=== PATIENT | male | born 1945 | race Caucasian/White ===

== ENCOUNTER 2018-12-16 07:43 | Observation (INO) | payer MEDICARE, BC ==
[2018-12-16] MEDS ORDERED: Sodium Chloride 0.9% 1000 ML 1,000 ML IV STA (08:03)
[2018-12-16] MEDS ORDERED: Sodium Chloride 0.9% 1000 ML 1,000 ML ONE (08:09)
--- NOTE | 2018-12-16 08:11 | ERPHSYRPT ---
- History of Present Illness Time Seen by Provider: 12/16/18 08:06 Source: patient, EMS Exam Limitations: no limitations Physician History: This is a 73-year-old white male with history of congestive heart failure coronary disease hyperlipidemia high blood pressure myocardial infarction asthma COPD pneumonia diabetes type2. Patient arrives with complaint of shortness of breath not feeling well fever symptoms times several days he states he's had a cough productive of yellow sputum he denies any chest pain he states that he has not been nauseous Patient was given Solu-Medrol 125 mg IV by medics also given DuoNeb treatment and albuterol treatment he states he feels like this is making him feel better but is still short of breath. Past medical history includes congestive heart failure, coronary disease, hyperlipidemia, high blood pressure, myocardial infarction, asthma, COPD, pneumonia, diabetes type 2, GERD, renal disease, anxiety, depression, prostate problems, right below the knee amputation Past surgical history includes CABG, right below the knee amputation Social history positive for tobacco use denies alcohol or illicit drug use Timing/Duration: day(s) (2-3 days) Activities at Onset: none Severity of Dyspnea-Max: moderate Severity of Dyspnea-Current: moderate Possible Cause: occasional episodes Modifying Factors: Improves With: nothing Associated Symptoms: constant, cough, fever, wheezing, productive cough (yellow sputum), No intermittent, No anxiety, No chest pain/discomfort, No edema, No insomnia, No loss of appetite, No lightheadedness, No weakness, No ankle swelling, No chills, No hemoptysis, No calf pain, No dizziness, No heaviness, No heart racing, No lightheadedness, No leg swelling, No muscle spasms feet, No muscle spasms hands, No painful breathing, No sweating, No tightness, No tingling face, No tingling hands International travel in last 2 weeks: No Allergies/Adverse Reactions: diazepam [From Valium] Adverse Reaction (Intermediate, Verified 12/16/18 08:04) Hallucinations Home Medications: Aspirin EC 81 mg [Ecotrin 81 mg] 81 mg PO DAILY 01/13/13 [History] Carvedilol 3.125 mg [Coreg 3.125 MG] 3.125 mg PO BID 01/13/13 [History] Clopidogrel Bisulfate 75 mg [PLAVIX 75 MG Tablet] 75 mg PO DAILY 01/13/13 [History] Ezetimibe 10 mg [Zetia 10 MG] 10 mg PO DAILY 01/13/13 [History] Niacin 500 mg [Niaspan 500 mg] 500 mg PO HS 01/13/13 [History] Tamsulosin HCl 0.4 mg [Flomax 0.4 MG] 0.4 mg PO DAILY 01/13/13 [History] Hydrocodone/APAP 10/325 mg [[place] 10/325 MG Tablet] 1 tab PO Q6HPRN PRN [History] Docusate Sodium [Dulcoease] 100 mg PO DAILY 05/09/16 [History] Furosemide 20 mg [Lasix 20 mg] 20 mg PO DAILY 05/09/16 [History] Finasteride 5 mg [Proscar 5 MG] 5 mg PO DAILY 10/26/16 [History] Gabapentin 400 mg [Neurontin 400 MG] 600 mg PO QID 10/26/16 [History] PANTOPRAZOLE 40 mg Tablet [Protonix 40MG Tablet] 40 mg PO QAM 10/26/16 [ History] Potassium Chloride 8 meq PO DAILY 10/26/16 [History] Prednisone 5 mg [Deltasone 5 mg] 5 mg PO DAILY 10/26/16 [History] Sod.chlorid/Potassium Chloride [Thermotabs Tablet] 1 each PO BID 10/26/16 [ History] Tizanidine HCl 4 mg [Zanaflex 4 MG] 2 mg PO TID 10/08/17 [History] Insulin Lispro [Humalog Kwikpen U-100] 1 unit SQ UD 12/16/18 [History] Hx Tetanus, Diphtheria Vaccination/Date Given: Yes (2012) Hx Influenza Vaccination/Date Given: Yes (2013) Hx Pneumococcal Vaccination/Date Given: Yes (2013) - Review of Systems Constitutional: Fever, Malaise, No Chills, No Fatigue, No Lethargy, No Night Sweats, No Weakness, No Weight Loss Eyes: No Symptoms Ears, Nose, & Throat: No Symptoms Respiratory: Cough, Dyspnea, Wheezing Cardiac: No Chest Pain, No Edema, No Syncope Abdominal/Gastrointestinal: No Abdominal Pain, No Nausea, No Vomiting, No Diarrhea, No Constipation, No Hematemesis, No Hematochezia, No Melena, No Dysphagia, No Appetite Changes Genitourinary Symptoms: No Dysuria Musculoskeletal: No Back Pain, No Neck Pain Skin: No Rash Neurological: No Dizziness, No Focal Weakness, No Sensory Changes Psychological: No Symptoms Endocrine: No Symptoms All Other Systems: Reviewed and Negative - Past Medical History Pertinent Past Medical History: Yes Neurological History: Peripheral Neuropathy ENT History: No Pertinent History Cardiac History: Other Respiratory History: COPD Endocrine Medical History: Diabetes Type II Musculoskeletal History: Osteoarthritis, Other GI Medical History: GERD History: Renal Disease Psycho-Social History: Anxiety, Depression Male Reproductive Disorders: Prostate Problems Other Medical History: HAD INFANTILE PARALYSIS; SMOKES 3 PPD; - Past Surgical History Past Surgical History: Yes Neuro Surgical History: No Pertinent History Cardiac: CABG Respiratory: No Pertinent History Gastrointestinal: No Pertinent History Genitourinary: No Pertinent History Musculoskeletal: Orthopedic Surgery Male Surgical History: No Pertinent History Other Surgical History: amputation below knee R. quad bypass - Social History Smoking Status: Current every day smoker How long have you smoked: 47 Exposure to second hand smoke: Yes Alcohol Use: Socially Drug Use: marijuana Patient Lives Alone: Yes Significant Family History: heart disease - Nursing Vital Signs Nursing Vital Signs: Initial Vital Signs Temperature 98.5 F 12/16/18 07:45 Pulse Rate 101 H 12/16/18 07:45 Respiratory Rate 30 H 12/16/18 07:45 Blood Pressure 123/56 12/16/18 07:45 O2 Sat by Pulse Oximetry 93 L 12/16/18 07:45 Pain Scale Pain Intensity 4 - Physical Exam General Appearance: moderate distress, alert Eye Exam: PERRL/EOMI Ears, Nose, Throat Exam: hearing grossly normal, normal ENT inspection, normal pharynx, No abnormal TM (R), No abnormal TM (L), No sinus pain/drainage, No hearing decreased, No nasal congestion, No pharyngeal erythema, No tonsillar exudate, No tonsillar swelling Neck Exam: normal inspection, supple Respiratory Exam: airway intact, diminished breath sounds, wheezing Cardiovascular/Chest Exam: normal heart sounds, regular rate/rhythm, normal peripheral pulses, No murmur Abdominal/Gastrointestinal Exam: soft, No tenderness, No distention, No mass Extremity Exam: non-tender, normal range of motion, no calf tenderness, no pedal edema, No normal inspection (s/p r bka remote) Peripheral Pulses Exam: dorsalis-pedis (R): 2+, dorsalis-pedis (L): 2+ Neurologic Exam: alert, oriented x 3, cooperative, generator rebuilder II-XII nml as tested, sensation nml, No motor deficits Skin Exam: normal color SpO2 Interpretation: normal (93% ) - Course Nursing assessment & vital signs reviewed: Yes EKG Interpreted by Me: RATE (100 bpm), Sinus Rhythm, Left Shonto Deviation, Other (EKG: Sinus rhythm, 100 beats per minute, left axis deviation,, complete right bundle branch block, no acute ST or T wave changes compared to May 08, 2016) - Radiology Exams Chest X-ray Interpretation: Discussed w/ radiologist (chest x-ray: Impression: 1. New prominence of the interstitial lung markings in both lung bases compared to April 29, 2018. Consider bronchitis versus and early were mild basilar interstitial pneumonitis.) - CT Exams Chest CT Interpretation: Discussed w/radiologist (CT chest: Impression: 1. No evidence of pulmonary embolism, no evidence of thoracic aortic aneurysm or dissection. 2. Tree in bud interstitial pattern within the peripheral right lower lung field can be seen with infectious bronchiolitis from numerous etiologies. Distinct dense consolidation is not seen. 3. Increased markings with in the posterior lung sulci bilaterally left greater than right, likely due to atelectasis/scarring no pleural fluid is seen. 4. Several bilateral 3- 4 mm diameter scattered soft tissue nodules within the lower lung villa. The patient is at low risk for lung malignancy no further workup is recommended if the patient is at high risk (for example cigarette smoking ) for development of lung malignancy, and optional CT of the chest that 12 months would be recommended.) Ordered Tests: Active Orders 24 hr Category Date Time Status Cryptologic Support Specialist STAT Care 12/16/18 08:04 Active EKG-ER Only STAT Care 12/16/18 08:03 Active IV Insertion STAT Care 12/16/18 08:03 Active Oxygen-ED Only Nasal Cannula 2 lpm Care 12/16/18 08:03 Active Pulse Oximetry (ED) STAT Care 12/16/18 08:03 Active CHEST 1 VIEW (PORTABLE) Stat Exams 12/16/18 08:03 Completed CHEST WITH CONTRAST [CT] Stat Exams 12/16/18 09:08 Completed BLOOD CULTURE Stat Lab 12/16/18 08:30 Received CBC W DIFF Stat Lab 12/16/18 08:37 Completed CMP Stat Lab 12/16/18 08:37 Completed CULTURE,SPUTUM Stat Lab 12/16/18 08:03 Uncollected D-DIMER QUANTITATION Stat Lab 12/16/18 08:37 Completed Lactic Acid Stat Lab 12/16/18 08:20 Completed NT PRO BNP Stat Lab 12/16/18 08:37 Completed PROTIME WITH INR Stat Lab 12/16/18 08:37 Completed PTT Stat Lab 12/16/18 08:37 Completed TROPONIN Q3H Lab 12/16/18 08:37 Completed TROPONIN Q3H Lab 12/16/18 11:15 Ordered TROPONIN Q3H Lab 12/16/18 14:15 Ordered TROPONIN Q3H Lab 12/16/18 17:15 Ordered TROPONIN Q3H Lab 12/16/18 20:15 Ordered UA W/RFX UR CULTURE Stat Lab 12/16/18 09:15 Completed VENOUS BLOOD GAS Stat Lab 12/16/18 08:20 Completed Medication Summary Discontinued Medications Generic Name Dose Route Start Last Admin Trade Name Freq PRN Reason Stop Dose Admin Hydrocodone Bitart/Acetaminophen 2 tab 12/16/18 08:34 12/16/18 08:38 [place] 5/325 Mg PO 12/16/18 08:35 2 tab STAT ONE Administration Hydrocodone Bitart/Acetaminophen Confirm 12/16/18 08:37 [place] 5/325 Mg Administered 12/16/18 08:38 Dose 2 tab .ROUTE .STK-MED ONE Albuterol Sulfate 2.5 mg 12/16/18 11:14 Proventil 2.5 Mg/3 Ml Neb IH 12/16/18 11:15 STAT ONE Albuterol Sulfate Confirm 12/16/18 11:19 Proventil 2.5 Mg/3 Ml Neb Administered 12/16/18 11:20 Dose 2.5 mg IH .STK-MED ONE Sodium Chloride 1,000 mls @ 999 mls/hr 12/16/18 08:03 12/16/18 09:50 Sodium Chloride 0.9% 1000 Ml IV 12/16/18 09:03 Infused .Q1H1M STA Infusion Sodium Chloride Confirm 12/16/18 08:09 Sodium Chloride 0.9% 1000 Ml Administered 12/16/18 08:10 Dose 1,000 mls @ ud .ROUTE .STK-MED ONE Ceftriaxone Sodium/Dextrose 1 g in 50 mls @ 100 mls/hr 12/16/18 09:15 09:53 Rocephin 1 Gm-D5w 50 Ml Bag IV 12/16/18 09:44 Infused STAT STA Infusion Ceftriaxone Sodium/Dextrose Confirm 12/16/18 09:20 Rocephin 1 Gm-D5w 50 Ml Bag Administered 12/16/18 09:21 Dose 1 g in 50 mls @ ud IV .STK-MED ONE Lab/Rad Data: Laboratory Result Diagrams 12/16/18 08:37 12/16/18 08:37 Laboratory Results 12/16/18 12/16/18 12/16/18 Range/Units 09:15 08:37 08:37 WBC (4.0-10.5) K/mm3 RBC (4.1-5.6) M/mm3 Hgb (12.5-18.0) gm/dl Hct (42-50) % MCV (78-100) fl MCH (26-32) pg MCHC (32-36) g/dl RDW (11.5-14.0) % Plt Count (150-450) K/mm3 MPV (6-9.5) fl Gran % (36.0-66.0) % Eos # (Auto) (0-0.5) Absolute Lymphs (auto) (1.0-4.6) Absolute Monos (auto) (0.0-1.3) Lymphocytes % (24.0-44.0) % Monocytes % (0.0-12.0) % Eosinophils % (0.00-5.0) % Basophils % (0.0-0.4) % Absolute Granulocytes (1.4-6.9) Basophils # (0-0.4) PT 14.5 H (8.83-12.87) SECONDS INR 1.24 (0.8-3.0) APTT 35.2 (24.1-36.1) SECONDS D-Dimer 1235 H* (215-500) ng/mL pO2/FiO2 Ratio % VBG pH (7.32-7.42) VBG pCO2 at Pat Temp (42-55) mm/Hg VBG pO2 at Pat Temp (25-40) mm/Hg VBG HCO3 (22-28) meq/L VBG O2 Sat (Zain) (95-100) VBG Base Excess (-2.0-2.0) VBG Hemoglobin VBG Carboxyhemoglobin (0.0-6.9) % T HGB POC Potassium (3.5-5.1) Sodium (137-145) mmol/L Potassium (3.5-5.1) mmol/L Chloride (98-107) mmol/L Carbon Dioxide (22-30) mmol/L Anion Gap (5-15) MEQ/L BUN (9-20) mg/dL Creatinine (0.66-1.25) mg/dL Estimated GFR ML/MIN Glucose (74-106) mg/dL Lactic Acid (0.4-2.0) Calcium (8.4-10.2) mg/dL Total Bilirubin (0.2-1.3) mg/dL AST (17-59) U/L ALT (0-50) U/L Alkaline Phosphatase (38-126) U/L Troponin I < 0.012 (0.000-0.034) ng/mL NT-Pro-B Natriuret Pep (0-900) pg/mL Serum Total Protein (6.3-8.2) g/dL Albumin (3.5-5.0) g/dL Urine Color YELLOW (YELLOW) Urine Appearance CLEAR (CLEAR) Urine pH 6.0 (5-6) Ur Specific Welcome 1.019 (1.005-1.025) Urine Protein NEGATIVE (Negative) Urine Ketones SMALL (NEGATIVE) Urine Blood SMALL (0-5) Alvin/ul Urine Nitrite NEGATIVE (NEGATIVE) Urine Bilirubin NEGATIVE (NEGATIVE) Urine Urobilinogen 4 (0-1) mg/dL Ur Leukocyte Esterase NEGATIVE (NEGATIVE) Urine WBC (Auto) NONE (0-5) /HPF Urine RBC (Auto) 0-2 (0-2) /HPF U Epithel Cells (Auto) NONE (FEW) /HPF Urine Bacteria (Auto) NONE (NEGATIVE) /HPF Urine Culture Reflexed NO (NO) Urine Glucose 150 (NEGATIVE) mg/dL 12/16/18 12/16/18 12/16/18 Range/Units 08:37 08:37 08:20 WBC 12.1 H (4.0-10.5) K/mm3 RBC 4.67 (4.1-5.6) M/mm3 Hgb 14.8 (12.5-18.0) gm/dl Hct 45.6 (42-50) % MCV 97.6 (78-100) fl MCH 31.7 (26-32) pg MCHC 32.5 (32-36) g/dl RDW 13.8 (11.5-14.0) % Plt Count 190 (150-450) K/mm3 MPV 9.9 H (6-9.5) fl Gran % 73.2 H (36.0-66.0) % Eos # (Auto) 0.04 (0-0.5) Absolute Lymphs (auto) 1.81 (1.0-4.6) Absolute Monos (auto) 1.35 H (0.0-1.3) Lymphocytes % 15.0 L (24.0-44.0) % Monocytes % 11.2 (0.0-12.0) % Eosinophils % 0.3 (0.00-5.0) % Basophils % 0.3 (0.0-0.4) % Absolute Granulocytes 8.84 H (1.4-6.9) Basophils # 0.04 (0-0.4) PT (8.83-12.87) SECONDS INR (0.8-3.0) APTT (24.1-36.1) SECONDS D-Dimer (215-500) ng/mL pO2/FiO2 Ratio 21.0 % VBG pH 7.35 (7.32-7.42) VBG pCO2 at Pat Temp 47 (42-55) mm/Hg VBG pO2 at Pat Temp 21 L (25-40) mm/Hg VBG HCO3 25.9 (22-28) meq/L VBG O2 Sat (Zain) 37.4 L (95-100) VBG Base Excess -0.3 (-2.0-2.0) VBG Hemoglobin 15.2 VBG Carboxyhemoglobin 2.3 (0.0-6.9) % T HGB POC Potassium 4.3 (3.5-5.1) Sodium 136 L (137-145) mmol/L Potassium 4.4 (3.5-5.1) mmol/L Chloride 100 (98-107) mmol/L Carbon Dioxide 26 (22-30) mmol/L Anion Gap 14.7 (5-15) MEQ/L BUN 19 (9-20) mg/dL Creatinine 1.12 (0.66-1.25) mg/dL Estimated GFR > 60.0 ML/MIN Glucose 244 H (74-106) mg/dL Lactic Acid 2.0 (0.4-2.0) Calcium 9.2 (8.4-10.2) mg/dL Total Bilirubin 1.00 (0.2-1.3) mg/dL AST 17 (17-59) U/L ALT 14 (0-50) U/L Alkaline Phosphatase 101 (38-126) U/L Troponin I (0.000-0.034) ng/mL NT-Pro-B Natriuret Pep 342 (0-900) pg/mL Serum Total Protein 8.0 (6.3-8.2) g/dL Albumin 4.0 (3.5-5.0) g/dL Urine Color (YELLOW) Urine Appearance (CLEAR) Urine pH (5-6) Ur Specific Welcome (1.005-1.025) Urine Protein (Negative) Urine Ketones (NEGATIVE) Urine Blood (0-5) Alvin/ul Urine Nitrite (NEGATIVE) Urine Bilirubin (NEGATIVE) Urine Urobilinogen (0-1) mg/dL Ur Leukocyte Esterase (NEGATIVE) Urine WBC (Auto) (0-5) /HPF Urine RBC (Auto) (0-2) /HPF U Epithel Cells (Auto) (FEW) /HPF Urine Bacteria (Auto) (NEGATIVE) /HPF Urine Culture Reflexed (NO) Urine Glucose (NEGATIVE) mg/dL - Progress Progress: improved Air Movement: fair Progress Note: 12/16/18 11:25 Patient is improving still a few wheezes. Pulse oximetry 91-92% on 2 L of oxygen. I discussed the patient's case with Dr. Youngblood will place patient on observation telemetry. Diagnosis COPD with exacerbation and shortness of breath. Will continue Rocephin begin Zithromax. Continue IV Solu-Medrol and duo neb treatments. And will place patient on sliding scale insulin coverage. - Departure Departure Disposition: Observation Clinical Impression: COPD with exacerbation, Shortness of breath Condition: Fair Critical Care Time: No Referrals: JOSHUA YOUNGBLOOD [Primary Care Provider] - Instructions: Chronic Obstructive Pulmonary Disease
[2018-12-16 08:28] LABS: VBG BASE EXCESS -0.3 (-2.0-2.0); VBG CARBOXYHEMOGLOBIN 2.3 % T HGB (0.0-6.9); VBG HCO3- 25.9 meq/L (22-28); VBG HEMOGLOBIN 15.2; VBG O2 SATURATION 37.4 (95-100); VBG PCO2 47 mm/Hg (42-55); VBG PO2 21 mm/Hg (25-40); VBG POTASSIUM 4.3 (3.5-5.1); VBG pH 7.35 (7.32-7.42)
[2018-12-16] MEDS ORDERED: NORCO 5/325 MG PO ONE (08:34)
[2018-12-16] MEDS ORDERED: NORCO 5/325 MG ONE (08:37)
[2018-12-16 08:40] LABS: BASOPHIL % 0.3 % (0.0-0.4); Basophil (Absolute #) 0.04 (0-0.4); Eosinophil % 0.3 % (0.00-5.0); Eosinophil (Absolute #) 0.04 (0-0.5); Granulocyte Absolute (ANC) 8.84 (1.4-6.9); Granulocytes % 73.2 % (36.0-66.0); Hematocrit 45.6 % (42-50); Hemoglobin 14.8 gm/dl (12.5-18.0); Lymphocyte (Absolute #) 1.81 (1.0-4.6); Mean Cell Volume 97.6 fl (78-100); Mean Corpuscular Hemoglobin 31.7 pg (26-32); Mean Corpuscular Hgb Concent. 32.5 g/dl (32-36); Mean Platelet Volume 9.9 fl (6-9.5); Monocyte (Absolute #) 1.35 (0.0-1.3); Monocytes % 11.2 % (0.0-12.0); Platelet Count 190 K/mm3 (150-450); Red Blood Count 4.67 M/mm3 (4.1-5.6); Red Cell Distribution Width 13.8 % (11.5-14.0); White Blood Count 12.1 K/mm3 (4.0-10.5)
[2018-12-16 08:47] LABS: INR 1.24 (0.8-3.0); PROTIME 14.5 SECONDS (8.83-12.87)
--- NOTE | 2018-12-16 08:48 | XRAY ---
Exam: AP upright portable chest film from 12/16/2018. Comparison: Two-view chest film series from 04/29/2018. Indication: 73-year-old male with shortness of breath. Findings: The heart size is normal. Atherosclerotic calcification is seen within the aortic arch. There is evidence of prior CABG with midline sternotomy. The upper 5 sternal wires are broken, but this is unchanged from 04/29/2018. Mild chronic central bronchial wall thickening is seen. I also note mild prominence of the interstitial lung markings at both lung bases. This appears to represent a new finding as compared to 04/29/2018. This could reflect bronchitis, but an early bibasilar interstitial pneumonia is difficult to exclude. The upper and mid lung villa appear clear bilaterally. No central pulmonary vascular congestion or vascular redistribution to the upper lung villa is seen. There is no pneumothorax or pleural effusion. Moderate osteoarthritic changes are seen within both shoulder joints. Impression: 1. There is new prominence of the interstitial lung markings at both lung bases as compared to 04/29/2018. Consider bronchitis versus an early or mild bibasilar interstitial pneumonitis. 2. Other incidental findings, as discussed above.
[2018-12-16 08:50] LABS: PTT 35.2 SECONDS (24.1-36.1)
[2018-12-16 08:59] LABS: ALKALINE PHOSPHATASE 101 U/L (38-126); ANION GAP 14.7 MEQ/L (5-15); BLOOD UREA NITROGEN 19 mg/dL (9-20); CHLORIDE 100 mmol/L (98-107); Calcium 9.2 mg/dL (8.4-10.2); Carbon Dioxide 26 mmol/L (22-30); Creatinine 1 1.12 mg/dL (0.66-1.25); Glucose 244 mg/dL (74-106); NT PRO BNP 342 pg/mL (0-900); Potassium 4.4 mmol/L (3.5-5.1); SGOT/AST 17 U/L (17-59); SGPT/ALT 14 U/L (0-50); SODIUM 136 mmol/L (137-145)
[2018-12-16] MEDS ORDERED: ROCEPHIN 1 Gm-D5w 50 ml Bag** 1 G/50 ML IVPB IV STA (09:15)
[2018-12-16] MEDS ORDERED: ROCEPHIN 1 Gm-D5w 50 ml Bag** 1 G/50 ML IVPB IV ONE (09:20)
[2018-12-16 09:38] LABS: Appearance CLEAR (CLEAR); Bilirubin NEGATIVE (NEGATIVE); Blood SMALL Ery/ul (0-5); Glucose 150 mg/dL (NEGATIVE); Ketones SMALL (NEGATIVE); Leukocyte Esterase NEGATIVE (NEGATIVE); Nitrite NEGATIVE (NEGATIVE); Protein,Urine Dip NEGATIVE (Negative); RBC 0-2 /HPF (0-2); Specific Gravity 1.019 (1.005-1.025); Urobilinogen 4 mg/dL (0-1)
--- NOTE | 2018-12-16 10:44 | XRAY ---
Exam: CTA of the chest with IV contrast per PE protocol from 12/16/2018. CTDI: 17.89 Comparison: AP upright portable chest film from 12/16/2018. Indication: 73-year-old male with elevated d-dimer (1235), back pain, weakness, shortness of breath. Findings: Post-IV contrast axial images were obtained through the chest using the PE protocol during automated injection of 80 cc of Isovue 370 IV contrast material. Reconstructed coronal and sagittal images were created and reviewed. Findings: The enhancing pulmonary arteries reveal no filling defects to suggest clot/emboli. The ascending aorta measures a maximum of 3.8 cm in diameter which is towards the upper limits of normal. However, no thoracic aortic aneurysm or dissection is seen. Vascular calcification is seen within the aortic arch and descending thoracic aorta. The heart size is normal without pericardial effusion. There is evidence of prior CABG with midline sternotomy. I see no abnormal mediastinal or perihilar lymphadenopathy. A few small scattered postinflammatory lymph nodes are seen. I also note some granulomatous calcifications within the AP window on the left on axial image #104. A couple granulomatous calcifications overlie the left hilum as well. The lungs are well expanded. I see no dense focal consolidation, pneumothorax, or pleural fluid. I believe there is a minimal amount of probable phlegm along the posterior right lateral margin of the distal trachea on axial images #20 through #23 of series #3. There appear to be some subtle "tree-in-bud" opacities within the lateral right lower lung field which could reflect infectious bronchiolitis. I also note some increased markings within the posterior lung sulci bilaterally, left greater than right, which may reflect scarring/linear atelectasis. A small calcified granuloma is seen within the posterior lateral left upper lung field on axial image #13 of series #4. Several tiny 3-4 mm nodular densities are seen within the peripheral right lower lung field. There also appears to be a 3.5 mm nodule posterolaterally within the left lower lobe on axial image #42. The visualized upper abdomen reveals some scattered calcified granulomas within both the liver and spleen consistent with remote granulomatous disease. There is a probable small splenule adjacent to the posterior medial aspect of the spleen on axial image #144. The adrenal glands appear unremarkable. The skeleton reveals no fracture or aggressive bone lesion. I again see evidence of prior sternotomy from CABG. Minimal vertebral endplate spurring is seen within the lower thoracic spine. Impression: 1. I see no evidence of pulmonary embolism. Nor do I see evidence of thoracic aortic aneurysm or dissection. 2. There is a "tree-in-bud" interstitial pattern within the peripheral right lower lung field. This can be seen with infectious bronchiolitis from numerous etiologies. A distinct dense consolidation is not seen. 3. I also see some increased markings within the posterior lung sulci bilaterally, left greater than right, likely due to scarring/atelectasis. No pleural fluid is seen. 4. There are several bilateral 3-4 mm in diameter scattered soft tissue nodules within the lower lung villa. If the patient is at low risk for lung malignancy, no further workup would is recommended by the 2017 [employer] guidelines for pulmonary nodule management. If the patient is at high risk (for example cigarette smoking) for development of lung malignancy, an optional CT of the chest at 12 months would be recommended according to the 2017 Fleischner Society guidelines.
[2018-12-16] MEDS ORDERED: PROVENTIL 2.5 MG/3 ML NEB IH ONE ×2 (11:14→11:19)
[2018-12-16] MEDS ORDERED: DUONEB 0.5-3 MG/3 ml Neb IH PRN (11:54)
[2018-12-16] MEDS: Zithromax 500 MG/ 250 ML NaCl Premix 500 MG/250 ML IVPB IV SCH (12:38)
[2018-12-16] MEDS: Sodium Chloride 0.9% 1000 ML 1,000 ML IV SCH (12:38)
[2018-12-16] MEDS: solu-MEDROL 125 MG IV SCH ×3 (12:39→23:01)
[2018-12-16] MEDS: NovoLOG Insulin SQ PRN ×3 (12:39→22:07)
[2018-12-16] MEDS: Norco 10/325 MG Tablet PO PRN ×2 (16:05→22:06)
[2018-12-16] MEDS ORDERED: MEDICATION INTERVENTION PO SCH (17:00)
[2018-12-16] MEDS: Protonix 40MG Tablet PO SCH (17:33)
[2018-12-16] MEDS: LASIX 20 MG PO SCH (17:33)
[2018-12-16] MEDS: Colace 100 MG PO SCH (17:33)
[2018-12-16] MEDS: NEURONTIN 300 MG PO SCH ×2 (17:33→22:05)
[2018-12-16] MEDS: Zetia 10 MG PO SCH (17:33)
[2018-12-16] MEDS: ECOTRIN 81 MG PO SCH (17:33)
[2018-12-16] MEDS: Flomax 0.4 MG PO SCH (17:33)
[2018-12-16] MEDS: Klor Con 10 MEQ PO SCH (17:33)
[2018-12-16] MEDS: PLAVIX 75 MG Tablet PO SCH (17:33)
[2018-12-16] MEDS: Proscar 5 MG PO SCH (17:34)
[2018-12-16] MEDS ORDERED: NON-FORMULARY ITEM (Niacin 500 Mg*** [Niaspan 500 Mg***] 500 MG) PO SCH (22:00)
[2018-12-16] MEDS: Coreg 3.125 MG PO SCH (22:05)
[2018-12-16] MEDS: Zanaflex 4 MG PO SCH (22:05)
[2018-12-17] MEDS: Sodium Chloride 0.9% 1000 ML 1,000 ML IV SCH (02:48)
[2018-12-17] MEDS: Norco 10/325 MG Tablet PO PRN ×3 (04:10→18:42)
[2018-12-17 05:56] LABS: BASOPHIL % 0.1 % (0.0-0.4); Basophil (Absolute #) 0.01 (0-0.4); Eosinophil (Absolute #) 0 (0-0.5); Granulocyte Absolute (ANC) 7.95 (1.4-6.9); Granulocytes % 90.7 % (36.0-66.0); Hematocrit 40.7 % (42-50); Hemoglobin 13.1 gm/dl (12.5-18.0); Lymphocyte (Absolute #) 0.52 (1.0-4.6); Lymphocytes % 5.9 % (24.0-44.0); Mean Cell Volume 98.1 fl (78-100); Mean Corpuscular Hemoglobin 31.6 pg (26-32); Mean Corpuscular Hgb Concent. 32.2 g/dl (32-36); Monocyte (Absolute #) 0.29 (0.0-1.3); Monocytes % 3.3 % (0.0-12.0); Platelet Count 195 K/mm3 (150-450); Red Blood Count 4.15 M/mm3 (4.1-5.6); Red Cell Distribution Width 13.5 % (11.5-14.0); White Blood Count 8.8 K/mm3 (4.0-10.5)
[2018-12-17 06:12] LABS: ALBUMIN 3.5 g/dL (3.5-5.0); ALKALINE PHOSPHATASE 85 U/L (38-126); ANION GAP 15.2 MEQ/L (5-15); BLOOD UREA NITROGEN 24 mg/dL (9-20); CHLORIDE 102 mmol/L (98-107); Calcium 8.7 mg/dL (8.4-10.2); Carbon Dioxide 23 mmol/L (22-30); Creatinine 1 1.05 mg/dL (0.66-1.25); Glucose 440 mg/dL (74-106); Potassium 4.6 mmol/L (3.5-5.1); SGOT/AST 19 U/L (17-59); SGPT/ALT 17 U/L (0-50); SODIUM 136 mmol/L (137-145); Total Protein 7.1 g/dL (6.3-8.2)
[2018-12-17] MEDS: solu-MEDROL 125 MG IV SCH (06:18)
[2018-12-17] MEDS: Zetia 10 MG PO SCH (09:55)
[2018-12-17] MEDS: Colace 100 MG PO SCH (09:55)
[2018-12-17] MEDS: ECOTRIN 81 MG PO SCH (09:55)
[2018-12-17] MEDS: Flomax 0.4 MG PO SCH (09:55)
[2018-12-17] MEDS: Protonix 40MG Tablet PO SCH (09:56)
[2018-12-17] MEDS: Klor Con 10 MEQ PO SCH (09:56)
[2018-12-17] MEDS: PLAVIX 75 MG Tablet PO SCH (09:56)
[2018-12-17] MEDS: NEURONTIN 300 MG PO SCH ×4 (09:56→21:26)
[2018-12-17] MEDS: Zanaflex 4 MG PO SCH ×3 (09:56→21:27)
[2018-12-17] MEDS: Proscar 5 MG PO SCH (09:56)
[2018-12-17] MEDS: LASIX 20 MG PO SCH (09:56)
[2018-12-17] MEDS: Coreg 3.125 MG PO SCH ×2 (09:56→21:26)
[2018-12-17] MEDS ORDERED: NON-FORMULARY ITEM (Potassium Chloride [Potassium Chloride] 8 MEQ) PO SCH (10:00)
[2018-12-17] MEDS: Zithromax 500 MG/ 250 ML NaCl Premix 500 MG/250 ML IVPB IV SCH (10:56)
[2018-12-17] MEDS: ROCEPHIN 1 Gm-D5w 50 ml Bag** 1 G/50 ML IVPB IV SCH (10:56)
[2018-12-17 11:39] LABS: Slide Review 1 YES
[2018-12-17] MEDS: NovoLOG Insulin SQ PRN ×3 (12:31→21:28)
[2018-12-17] MEDS: solu-MEDROL 40 MG IV SCH ×2 (14:33→21:27)
[2018-12-18] MEDS: Norco 10/325 MG Tablet PO PRN (03:26)
[2018-12-18 06:01] LABS: ANION GAP 13.8 MEQ/L (5-15); BLOOD UREA NITROGEN 25 mg/dL (9-20); CHLORIDE 103 mmol/L (98-107); Calcium 8.7 mg/dL (8.4-10.2); Carbon Dioxide 22 mmol/L (22-30); Creatinine 1 0.91 mg/dL (0.66-1.25); Glucose 385 mg/dL (74-106); Potassium 4.4 mmol/L (3.5-5.1); SODIUM 135 mmol/L (137-145)
[2018-12-18] MEDS: solu-MEDROL 40 MG IV SCH (06:45)
[2018-12-18 07:30] VITALS: BP 116/59; PULSE 62
[2018-12-18 07:44] VITALS: O2SAT 97
--- NOTE | 2018-12-18 08:46 | PCM.DCORD ---
- Discharge Discharge Date: 12/18/18 Prescriptions: New Amoxicillin/Potassium Clav [Augmentin 875-125 Tablet] 875 mg PO BID 7 Days # 14 tablet Prednisone 10 mg [Deltasone 10 mg] 10 mg PO UD #18 tablet Continue Niacin 500 mg [Niaspan 500 mg] 500 mg PO HS Tamsulosin HCl 0.4 mg [Flomax 0.4 MG] 0.4 mg PO DAILY Ezetimibe 10 mg [Zetia 10 MG] 10 mg PO DAILY Aspirin EC 81 mg [Ecotrin 81 mg] 81 mg PO DAILY Clopidogrel Bisulfate 75 mg [PLAVIX 75 MG Tablet] 75 mg PO DAILY Carvedilol 3.125 mg [Coreg 3.125 MG] 3.125 mg PO BID Hydrocodone/APAP 10/325 mg [[place] 10/325 MG Tablet] 1 tab PO Q6HPRN PRN PRN Reason: Moderate Pain Docusate Sodium [Dulcoease] 100 mg PO DAILY Furosemide 20 mg [Lasix 20 mg] 20 mg PO DAILY Potassium Chloride 8 meq PO DAILY Sod.chlorid/Potassium Chloride [Thermotabs Tablet] 1 each PO BID Prednisone 5 mg [Deltasone 5 mg] 5 mg PO DAILY PANTOPRAZOLE 40 mg Tablet [Protonix 40MG Tablet] 40 mg PO QAM Gabapentin 400 mg [Neurontin 400 MG] 600 mg PO QID Finasteride 5 mg [Proscar 5 MG] 5 mg PO DAILY Tizanidine HCl 4 mg [Zanaflex 4 MG] 2 mg PO TID Insulin Lispro [Humalog Kwikpen U-100] 1 unit SQ UD Additional Instructions: PT will require 02 2l nc at night time Follow up with: JOSHUA HERNANDEZ [Primary Care Provider] - 1 Week
[2018-12-18] MEDS: NovoLOG Insulin SQ PRN (08:49)
--- NOTE | 2018-12-18 09:42 | SSS ---
DISCHARGE DIAGNOSES: 1) ACUTE EXACERBATION CHRONIC OBSTRUCTIVE PULMONARY DISEASE. 2) HYPOXIA. HISTORY: The patient is a 73 year-old white male who reports increasing shortness of breath over the last week. We recently had upper respiratory tract infection run through the community and the patient apparently had suffered with this at home to the point where the family saw that he was getting a little confused. He was checked by EMS and found to have an oxygen saturation in the low 80's. He was brought into the emergency room and subsequently admitted to the hospital for IV antibiotics, steroids, nebulizer treatments. PAST MEDICAL HISTORY: Significant for chronic obstructive pulmonary disease. He has quit smoking. He has previous history of diabetes mellitus type 2, osteoarthritis, gastroesophageal reflux disease, anxiety and depression. PAST SURGICAL HISTORY: He has had previous coronary artery bypass graft. Right below knee amputation. PHYSICAL EXAMINATION: His vital signs on admission showed temperature 98.5F, pulse 101, respiratory rate 30, blood pressure 123/56. O2 saturation 93% on supplemental oxygen. HEENT: Normocephalic, atraumatic. Pupils equal round reactive to light. Extraocular movements intact. Oropharynx is pink and moist. NECK: Supple without lymphadenopathy, thyromegaly or JVD. CHEST: Bilateral basilar wheezes. HEART: Regular rate and rhythm. ABDOMEN: Soft. EXTREMITIES: Without cyanosis, clubbing or edema. NEUROLOGIC: The patient is alert and oriented x3. LAB DATA AND TESTS: The patient's laboratory studies revealed his D-dimer to be elevated. He did receive a CT scan which did revealed no pulmonary embolism but emphysematous changes. His initial white count was slightly elevated at 12,100, hemoglobin 14.8, PLT count 190,000. His metabolic panel on 12/17/2018 showed a sugar of 440 due to his IV steroids. BUN 24, creatinine 1.05. Electrolytes were normal. Liver enzymes were normal. Troponins several measurements were less than 0.012. HOSPITAL COURSE: The patient was started on IV steroids, nebulizer treatments and antibiotics of Rocephin and Zithromax. The patient showed improvement over the first 24 hours no longer requiring oxygen. By the morning of 12/18/2018, he was felt to be ready for discharge home. He did have some slight basilar wheezes at this time. He was discharged home on prednisone 30 mg for three days, 20 mg for three days and 10 mg for three days and continue his usual home steroid medications. He will also be on Augmentin 875 mg twice a day for seven days. He is on nebulizer treatments. He does qualify for home oxygen at night and we will give him 2 liters of nasal cannula. The patient is instructed to follow up in my office in one week. He will otherwise continue on his usual home medications of aspirin 81 mg a day, carvedilol 3.125 mg b.i.d., Plavix 75 mg a day, Zetia 10 mg a day, Proscar 5 mg a day, Lasix 20 mg daily, gabapentin 400 mg tablet one and a half tablet four times a day, [place] 10/325 PRN. He is on Lispro insulin, niacin 500 mg at night, pantoprazole 40 mg a day, potassium 8 mEq a day. He is on 5 mg of prednisone routinely, Tamsulosin 0.4 mg and Zanaflex 2 mg four times a day.
[2018-12-18] MEDS: ECOTRIN 81 MG PO SCH (11:17)
[2018-12-18] MEDS: Colace 100 MG PO SCH (11:17)
[2018-12-18] MEDS: Coreg 3.125 MG PO SCH (11:17)
[2018-12-18] MEDS: PLAVIX 75 MG Tablet PO SCH (11:18)
[2018-12-18] MEDS: Klor Con 10 MEQ PO SCH (11:18)
[2018-12-18] MEDS: Proscar 5 MG PO SCH (11:18)
[2018-12-18] MEDS: NEURONTIN 300 MG PO SCH (11:18)
[2018-12-18] MEDS: Flomax 0.4 MG PO SCH (11:18)
[2018-12-18] MEDS: LASIX 20 MG PO SCH (11:18)
[2018-12-18] MEDS: ROCEPHIN 1 Gm-D5w 50 ml Bag** 1 G/50 ML IVPB IV SCH (11:35)
[2018-12-18] MEDS: Protonix 40MG Tablet PO SCH (11:35)
[2018-12-18] MEDS: Zithromax 500 MG/ 250 ML NaCl Premix 500 MG/250 ML IVPB IV SCH (11:36)
[2018-12-18] MEDS: Zetia 10 MG PO SCH (11:36)
[2018-12-18] MEDS: Zanaflex 4 MG PO SCH (11:36)
== END 2018-12-18 11:20 | disposition home or self-care (01) ==
LOC: ED 07:43 → MED SURG 11:46
PROVIDERS: ADMIT Family Medicine; ATTEND Family Medicine
DX: J44.1 Chronic obstructive pulmonary disease with (acute) exacerbation (principal); R09.02 Hypoxemia; R79.1 Abnormal coagulation profile; E11.9 Type 2 diabetes mellitus without complications; J06.9 Acute upper respiratory infection, unspecified; Z79.01 Long term (current) use of anticoagulants; Z79.899 Other long term (current) drug therapy
CPT/HCPCS: 36415; 71045; 71260; 80048; 80053; 81001; 82805; 82962; 83036; 83605; 83880; 84484; 85025; 85379; 85610; 85730; 87040; 93005; 93041; 93268; 94640; 94760; 94762; 96360; 96365; 99285; G0378; J0456; J0696; J2920; J2930; J7609; A9270-GY

== ENCOUNTER 2020-12-10 10:34 | Emergency (ER) | payer MEDICARE ==
--- NOTE | 2020-12-10 10:57 | ERPHSYRPT ---
- History of Present Illness Time Seen by Provider: 12/10/20 10:48 Source: patient Exam Limitations: no limitations Patient Subjective Stated Complaint: Pt states "I have been on pain management and some kind of pain pill since the 70s and I lost my pain management here and tried to go to one in [facility] and they are having trouble getting my records and I am out of pain meds and I am withdrawling. I tried to smoke some maryjuana to help and that stuff is horrible." Triage Nursing Assessment: Pt presented alert and oriented X 3, skin pwd Pt able to speak in clear full sentences, pt in motorized wheelchair with amputation on right leg below knee, pt anxious and trembling. Physician History: Pt states "I have been on pain management and some kind of pain pill since the 70s and I lost my pain management here and tried to go to one in [facility] and they are having trouble getting my records and I am out of pain meds and I am withdrawing. I tried to smoke some maryjuana to help and that stuff is horrible." Patient is complaining of agitation tremor abdominal pain diaphoresis since yesterday. Timing/Duration: yesterday Severity: moderate Associated Symptoms: nausea, abdominal pain, diaphoresis Allergies/Adverse Reactions: diazepam [From Valium] Adverse Reaction (Intermediate, Verified 12/16/18 08:04) Hallucinations Home Medications: Aspirin EC 81 mg [Ecotrin 81 mg] 81 mg PO DAILY 01/13/13 [History] Carvedilol 3.125 mg [Coreg 3.125 MG] 3.125 mg PO BID 01/13/13 [History] Clopidogrel Bisulfate 75 mg [PLAVIX 75 MG Tablet] 75 mg PO DAILY 01/13/13 [History] Ezetimibe 10 mg [Zetia 10 MG] 10 mg PO DAILY 01/13/13 [History] Niacin 500 mg [Niaspan 500 mg] 500 mg PO HS 01/13/13 [History] Tamsulosin HCl 0.4 mg [Flomax 0.4 MG] 0.4 mg PO DAILY 01/13/13 [History] Docusate Sodium [Dulcoease] 100 mg PO DAILY 05/09/16 [History] Furosemide 20 mg [Lasix 20 mg] 20 mg PO DAILY 05/09/16 [History] Finasteride 5 mg [Proscar 5 MG] 5 mg PO DAILY 10/26/16 [History] Gabapentin 400 mg [Neurontin 400 MG] 600 mg PO QID 10/26/16 [History] PANTOPRAZOLE 40 mg Tablet [Protonix 40MG Tablet] 40 mg PO QAM 10/26/16 [History] Potassium Chloride 8 meq PO DAILY 10/26/16 [History] Prednisone 5 mg [Deltasone 5 mg] 5 mg PO DAILY 10/26/16 [History] Sod.chlorid/Potassium Chloride [Thermotabs Tablet] 1 each PO BID 10/26/16 [History] Tizanidine HCl 4 mg [Zanaflex 4 MG] 2 mg PO TID 10/08/17 [History] Insulin Lispro [Humalog Kwikpen U-100] 1 unit SQ UD 12/16/18 [History] Hx Tetanus, Diphtheria Vaccination/Date Given: No Hx Influenza Vaccination/Date Given: Yes Hx Pneumococcal Vaccination/Date Given: No Immunizations Up to Date: Yes Travel Risk - International Travel Have you traveled outside of the country in past 3 weeks: No - Coronavirus Screening Are you exhibiting any of the following symptoms?: No Close contact with a COVID-19 positive Pt in past 14-21 Days: No - Vaccine Status Have you recieved a Covid-19 vaccination: Yes 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 - Vaccination Dates Date of 2cond Vaccination (if applicable): 09/22/2020 - Review of Systems Constitutional: No Fever, No Chills Eyes: No Symptoms Ears, Nose, & Throat: No Symptoms Respiratory: No Cough, No Dyspnea Cardiac: No Chest Pain, No Edema, No Syncope Abdominal/Gastrointestinal: Abdominal Pain, Nausea, No Vomiting, No Diarrhea Genitourinary Symptoms: No Dysuria Musculoskeletal: No Back Pain, No Neck Pain Skin: No Rash Neurological: No Dizziness, No Focal Weakness, No Sensory Changes Psychological: No Symptoms Endocrine: No Symptoms All Other Systems: Reviewed and Negative - Past Medical History Pertinent Past Medical History: Yes Neurological History: Peripheral Neuropathy ENT History: No Pertinent History Cardiac History: Other Respiratory History: COPD Endocrine Medical History: Diabetes Type II Musculoskeletal History: Osteoarthritis, Other GI Medical History: GERD History: Renal Disease Psycho-Social History: Anxiety, Depression Male Reproductive Disorders: Prostate Problems Other Medical History: HAD INFANTILE PARALYSIS; SMOKES - Past Surgical History Past Surgical History: Yes Neuro Surgical History: No Pertinent History Cardiac: CABG Respiratory: No Pertinent History Gastrointestinal: No Pertinent History Genitourinary: No Pertinent History Musculoskeletal: Orthopedic Surgery Male Surgical History: No Pertinent History Other Surgical History: amputation below knee R. quad bypass - Social History Smoking Status: Current every day smoker How long have you smoked: years Exposure to second hand smoke: Yes Alcohol Use: Socially Drug Use: marijuana Patient Lives Alone: No Significant Family History: heart disease - Nursing Vital Signs Nursing Vital Signs: Initial Vital Signs Temperature 97.8 F 12/10/20 10:40 Pulse Rate 74 12/10/20 10:40 Respiratory Rate 20 12/10/20 10:40 Blood Pressure 139/79 12/10/20 10:40 O2 Sat by Pulse Oximetry 98 12/10/20 10:40 Pain Scale Pain Intensity 4 - Physical Exam General Appearance: no apparent distress, alert Eye Exam: PERRL/EOMI, eyes nml inspection Ears, Nose, Throat Exam: normal ENT inspection, TMs normal, pharynx normal, moist mucous membranes Neck Exam: normal inspection, non-tender, supple, full range of motion Respiratory Exam: normal breath sounds, lungs clear, No respiratory distress Cardiovascular Exam: regular rate/rhythm, normal heart sounds, normal peripheral pulses Gastrointestinal/Abdomen Exam: soft, normal bowel sounds, No tenderness, No mass Back Exam: normal inspection, normal range of motion, No CVA tenderness, No vertebral tenderness Extremity Exam: normal inspection, normal range of motion, pelvis stable, other (right lower extrimity BKA) Neurologic Exam: alert, oriented x 3, cooperative, normal mood/affect, nml cerebellar function, nml station & gait, sensation nml, No motor deficits Skin Exam: normal color, warm, dry, No rash Lymphatic Exam: No adenopathy SpO2: 98 - Course Nursing assessment & vital signs reviewed: Yes Ordered Tests: Medication Summary Discontinued Medications Generic Name Dose Route Start Last Admin Trade Name Freq PRN Reason Stop Dose Admin Diazepam 10 mg 12/10/20 11:04 12/10/20 11:13 Valium 10 Mg/2 Ml Syringe IM 05/15/21 11:05 10 mg STAT ONE Administration Diazepam Confirm 12/10/20 11:11 Valium 10 Mg/2 Ml Syringe Administered 12/10/20 11:12 Dose 10 mg .ROUTE .STK-MED ONE Hydroxyzine HCl 50 mg 12/10/20 11:05 12/10/20 11:13 Vistaril 100mg/2ml IM 12/10/20 11:06 50 mg 1XONLY STA Administration Hydroxyzine HCl Confirm 12/10/20 11:12 Vistaril 100mg/2ml Administered 12/10/20 11:13 Dose 100 mg IM .STK-MED ONE - Progress Progress: improved Counseled pt/family regarding: drug and/or alcohol abuse, diagnosis - Departure Departure Disposition: Home Clinical Impression: Acute narcotic withdrawal without complication Condition: Stable Critical Care Time: No Referrals: JOSHUA HERNANDEZ [Primary Care Provider] - Follow Up with PCP/3 days Additional Instructions: Discharge/Care Plan ARIES DUMONT was seen on 12/10/20 in the Emergency Room. The patient was counseled regarding Diagnosis,Lab results, Imaging studies, need for follow up and when to return to the Emergency Room. Prescriptions given: Discharge Note I have spoken with the patient and/or caregivers. I have explained the patient's condition, diagnosis and treatment plan based on the information available to me at this time. I have answered the patient's and/or caregiver's questions and addressed any concerns. The patient and/or caregivers have as good understanding of the patient's diagnosis, condition and treatment plan as can be expected at this point. The vital signs have been stable. The patient's condition is stable and appropriate for discharge from the emergency department. The patient will pursue further outpatient evaluation with the primary care physician or other designated or consulting physician as outlined in the discharge instructions. The patient and/or caregivers are agreeable to this plan of care and follow-up instructions have been explained in detail. The patient and/or caregivers have received these instruction. The patient/and or caregivers are aware that any significant change in condition or worsening of symptoms should prompt an immediate return to this or the closest emergency department or call 911. Prescriptions: Duloxetine HCl 30 mg [Cymbalta 30 MG Capsule] 30 mg PO BID #60 cap Naltrexone HCl 50 mg PO BID #60 tablet Olanzapine 5 mg [zyPREXA 5MG TABLET] 5 mg PO BID #60 tab
[2020-12-10] MEDS ORDERED: VALIUM 10 MG/2 ML SYRINGE IM ONE (11:04)
[2020-12-10] MEDS ORDERED: VISTARIL 100MG/2ML IM STA (11:05)
[2020-12-10] MEDS ORDERED: VALIUM 10 MG/2 ML SYRINGE ONE (11:11)
[2020-12-10] MEDS ORDERED: VISTARIL 100MG/2ML IM ONE (11:12)
[2020-12-10 12:06] VITALS: BP 134/68; PULSE 71; O2SAT 95
== END 2020-12-10 12:06 | disposition home or self-care (01) ==
LOC: ED 10:34
DX: F15.23 Other stimulant dependence with withdrawal (principal); Z79.899 Other long term (current) drug therapy; E11.9 Type 2 diabetes mellitus without complications; J44.9 Chronic obstructive pulmonary disease, unspecified; G62.9 Polyneuropathy, unspecified; K21.9 Gastro-esophageal reflux disease without esophagitis; N28.9 Disorder of kidney and ureter, unspecified; F41.8 Other specified anxiety disorders
CPT/HCPCS: 96372; 99284; J3360; J3410

== ENCOUNTER 2021-01-27 13:46 | Emergency (ER) | payer MEDICARE ==
[2021-01-27] MEDS ORDERED: Zofran 4 MG/2 ML VIAL IV ONE (14:15)
[2021-01-27] MEDS ORDERED: Sodium Chloride 0.9% 1000 ML 1,000 ML IV STA (14:15)
[2021-01-27] MEDS ORDERED: MORPHINE SULFATE 2 MG INJ IV ONE (14:15)
--- NOTE | 2021-01-27 14:29 | ERPHSYRPT ---
- History of Present Illness Time Seen by Provider: 01/27/21 13:47 Source: patient, family Exam Limitations: no limitations Patient Subjective Stated Complaint: Pt states that he has had diarrhea for a month and has felt extremely weak for the past 2-3 days Triage Nursing Assessment: Pt brought to the ER by his son, hypertensive, rates chronic back pain as 6/10, weakness over entire body, loss of appetite and not drinking normal, diarrhea Physician History: 75 years old male with history of heavy tobacco abuse 4 packs/day, COPD, coronary artery disease status post CABG, diabetes mellitus, chronic back pain presented in the ER with chief complaint of generalized weakness fatigue with progressive worsening for almost 1 month. Patient is not a good historian and history is obtained from son who reports patient has loose stool off and on for almost a month and has decreased oral intake with nausea and decreased appetite. He is having chills today but no fever. Denies any difficulty breathing, has chronic smoker cough which is not any worse than usual. Has chronic back pain which is not well controlled as he has been taken off of her pain medications by pain management. Denies any abdominal pain. Is feeling weak fatigued and tired with no energy to do his routine activities. Timing/Duration: week(s) (4), gradual onset, worse Severity: moderate Modifying Factors: Improves With: nothing Associated Symptoms: nausea, chills, loss of appetite, malaise, weakness Allergies/Adverse Reactions: diazepam [From Valium] Adverse Reaction (Intermediate, Verified 01/27/21 14:01) Hallucinations Home Medications: Aspirin EC 81 mg [Ecotrin 81 mg] 81 mg PO DAILY 01/13/13 [History] Carvedilol 3.125 mg [Coreg 3.125 MG] 3.125 mg PO BID 01/13/13 [History] Clopidogrel Bisulfate 75 mg [PLAVIX 75 MG Tablet] 75 mg PO DAILY 01/13/13 [History] Niacin 500 mg [Niaspan 500 mg] 500 mg PO HS 01/13/13 [History] Tamsulosin HCl 0.4 mg [Flomax 0.4 MG] 0.4 mg PO DAILY 01/13/13 [History] Furosemide 20 mg [Lasix 20 mg] 20 mg PO BID 10/12/16 [History] Finasteride 5 mg [Proscar 5 MG] 5 mg PO DAILY 10/26/16 [History] Gabapentin 400 mg [Neurontin 400 MG] 600 mg PO QID 10/26/16 [History] PANTOPRAZOLE 40 mg Tablet [Protonix 40MG Tablet] 40 mg PO QAM 10/26/16 [History] Potassium Chloride 8 meq PO BID 10/26/16 [History] Prednisone 5 mg [Deltasone 5 mg] 5 mg PO DAILY 10/26/16 [History] Insulin Lispro [Humalog Kwikpen U-100] 1 unit SQ UD 12/16/18 [History] Insulin Glargine,Hum.rec.anlog [Lantus] 40 unit SQ DAILY 01/27/21 [History] Rosuvastatin Calcium 10 mg PO DAILY 01/27/21 [History] Hx Tetanus, Diphtheria Vaccination/Date Given: No Hx Influenza Vaccination/Date Given: Yes Hx Pneumococcal Vaccination/Date Given: No Travel Risk - International Travel Have you traveled outside of the country in past 3 weeks: No - Coronavirus Screening Are you exhibiting any of the following symptoms?: No Close contact with a COVID-19 positive Pt in past 14-21 Days: No - Vaccine Status Have you recieved a Covid-19 vaccination: Yes Security Inspector: Moderna - Vaccination Dates Date of 2cond Vaccination (if applicable): 09/22/2020 - Review of Systems Constitutional: Chills, Fatigue, Weakness Eyes: No Symptoms Ears, Nose, & Throat: No Symptoms Respiratory: Cough, Dyspnea Cardiac: No Symptoms Abdominal/Gastrointestinal: Nausea, Diarrhea Genitourinary Symptoms: No Symptoms Musculoskeletal: Arthralgias, Back Pain, Deformity (Right below-knee amputation), Myalgias Skin: No Symptoms Neurological: No Symptoms Psychological: No Symptoms Endocrine: No Symptoms Hematologic/Lymphatic: No Symptoms Immunological/Allergic: No Symptoms - Past Medical History Pertinent Past Medical History: Yes Neurological History: Peripheral Neuropathy ENT History: No Pertinent History Cardiac History: Other Respiratory History: COPD Endocrine Medical History: Diabetes Type II Musculoskeletal History: Osteoarthritis, Other GI Medical History: GERD History: Renal Disease Psycho-Social History: Anxiety, Depression Male Reproductive Disorders: Prostate Problems Other Medical History: HAD INFANTILE PARALYSIS; SMOKES - Past Surgical History Past Surgical History: Yes Neuro Surgical History: No Pertinent History Cardiac: CABG Respiratory: No Pertinent History Gastrointestinal: No Pertinent History Genitourinary: No Pertinent History Musculoskeletal: Orthopedic Surgery Male Surgical History: No Pertinent History Other Surgical History: amputation below knee R. quad bypass - Social History Smoking Status: Current every day smoker How long have you smoked: years Exposure to second hand smoke: Yes Alcohol Use: Socially Drug Use: marijuana Patient Lives Alone: Yes Significant Family History: heart disease - Nursing Vital Signs Nursing Vital Signs: Initial Vital Signs Temperature 96.8 F 01/27/21 13:52 Pulse Rate 64 01/27/21 13:52 Respiratory Rate 14 01/27/21 13:52 Blood Pressure 151/92 01/27/21 13:52 O2 Sat by Pulse Oximetry 97 01/27/21 13:52 Pain Scale Pain Intensity 10 - Physical Exam General Appearance: no apparent distress, alert Eye Exam: PERRL/EOMI, eyes nml inspection Ears, Nose, Throat Exam: normal ENT inspection, TMs normal, pharyngeal erythema Neck Exam: normal inspection, non-tender, supple, full range of motion Respiratory Exam: normal breath sounds, lungs clear Cardiovascular Exam: regular rate/rhythm, normal heart sounds Gastrointestinal/Abdomen Exam: soft, normal bowel sounds, No tenderness Back Exam: normal inspection Extremity Exam: normal inspection, normal range of motion, other (Right below- knee amputation) Neurologic Exam: alert, oriented x 3, cooperative, normal mood/affect Skin Exam: normal color SpO2 Interpretation: normal SpO2: 97 O2 Delivery: Room Air - Course EKG Interpreted by Me: RATE (61), Sinus Rhythm, Left [place] Deviation, Q-wave, Non-specific ST Changes Ordered Tests: Active Orders 24 hr Category Date Time Status EKG-ER Only STAT Care 01/27/21 14:15 Active IV Insertion STAT Care 01/27/21 14:15 Active ABDOMEN AND PELVIS W/0 CONTRAS [CT] Stat Exams 01/27/21 14:21 Completed CHEST 1 VIEW (PORTABLE) Stat Exams 01/27/21 14:20 Completed BLOOD CULTURE Stat Lab 01/27/21 14:37 Received CBC W DIFF Stat Lab 01/27/21 14:35 Completed CMP Stat Lab 01/27/21 14:35 Completed LIPASE Stat Lab 01/27/21 14:35 Completed Lactic Acid Stat Lab 01/27/21 14:15 Completed TROPONIN Q3H Lab 01/27/21 14:35 Completed TROPONIN Q3H Lab 01/27/21 17:30 Ordered TROPONIN Q3H Lab 01/27/21 20:30 Ordered TROPONIN Q3H Lab 01/27/21 23:30 Ordered TROPONIN Q3H Lab 01/28/21 02:30 Ordered UA W/RFX UR CULTURE Stat Lab 01/27/21 16:49 Completed Medication Summary Discontinued Medications Generic Name Dose Route Start Last Admin Trade Name [place] PRN Reason Stop Dose Admin Sodium Chloride 1,000 mls @ 999 mls/hr 01/27/21 14:15 01/27/21 16:47 Sodium Chloride 0.9% 1000 Ml IV 01/27/21 15:15 Infused .Q1H1M STA Infusion Sodium Chloride Confirm 01/27/21 14:41 Sodium Chloride 0.9% 1000 Ml Administered 01/27/21 14:42 Dose 1,000 mls @ ud .ROUTE .STK-MED ONE Morphine Sulfate 2 mg 01/27/21 14:15 01/27/21 14:44 Morphine Sulfate 2 Mg Inj IV 01/27/21 14:16 2 mg STAT ONE Administration Morphine Sulfate Confirm 01/27/21 14:41 Morphine Sulfate 2 Mg Inj Administered 01/27/21 14:42 Dose 2 mg .ROUTE .STK-MED ONE Ondansetron HCl 4 mg 01/27/21 14:15 01/27/21 14:45 Zofran 4 Mg/2 Ml Vial IV 01/27/21 14:16 4 mg STAT ONE Administration Ondansetron HCl Confirm 01/27/21 14:41 Zofran 4 Mg/2 Ml Vial Administered 01/27/21 14:42 Dose 4 mg .ROUTE .STK-MED ONE Lab/Rad Data: Laboratory Result Diagrams 01/27/21 14:35 01/27/21 14:35 Laboratory Results 01/27/21 01/27/21 01/27/21 Range/Units 16:49 14:35 14:35 WBC (4.0-10.5) K/mm3 RBC (4.1-5.6) M/mm3 Hgb (12.5-18.0) gm/dl Hct (42-50) % MCV (78-100) fl MCH (26-32) pg MCHC (32-36) g/dl RDW (11.5-14.0) % Plt Count (150-450) K/mm3 MPV (7.5-11.0) fl Gran % (36.0-66.0) % Eos # (Auto) (0-0.5) Absolute Lymphs (auto) (1.0-4.6) Absolute Monos (auto) (0.0-1.3) Lymphocytes % (24.0-44.0) % Monocytes % (0.0-12.0) % Eosinophils % (0.00-5.0) % Basophils % (0.0-0.4) % Absolute Granulocytes (1.4-6.9) Basophils # (0-0.4) Sodium 139 (137-145) mmol/L Potassium 4.3 (3.5-5.1) mmol/L Chloride 103 (98-107) mmol/L Carbon Dioxide 25 (22-30) mmol/L Anion Gap 14.7 (5-15) MEQ/L BUN 12 (9-20) mg/dL Creatinine 0.81 (0.66-1.25) mg/dL Estimated GFR > 60.0 ML/MIN Glucose 93 (74-106) mg/dL Lactic Acid (0.4-2.0) Calcium 9.1 (8.4-10.2) mg/dL Total Bilirubin 0.40 (0.2-1.3) mg/dL AST 25 (17-59) U/L ALT 15 (0-50) U/L Alkaline Phosphatase 108 (38-126) U/L Troponin I < 0.012 (0.000-0.034) ng/mL Serum Total Protein 7.4 (6.3-8.2) g/dL Albumin 4.1 (3.5-5.0) g/dL Lipase 19 L (23-300) U/L Urine Color YELLOW (YELLOW) Urine Appearance CLEAR (CLEAR) Urine pH 7.0 (5-6) Ur Specific [place] 1.018 (1.005-1.025) Urine Protein NEGATIVE (Negative) Urine Ketones SMALL (NEGATIVE) Urine Blood NEGATIVE (0-5) Alvin/ul Urine Nitrite NEGATIVE (NEGATIVE) Urine Bilirubin NEGATIVE (NEGATIVE) Urine Urobilinogen 4 (0-1) mg/dL Ur Leukocyte Esterase NEGATIVE (NEGATIVE) Urine WBC (Auto) 0-2 (0-5) /HPF Urine RBC (Auto) 0-2 (0-2) /HPF U Epithel Cells (Auto) NONE (FEW) /HPF Urine Bacteria (Auto) NONE SEEN (NEGATIVE) /HPF Urine Mucus (Auto) SLIGHT (NEGATIVE) /HPF Urine Culture Reflexed NO (NO) Urine Glucose NEGATIVE (NEGATIVE) mg/dL 01/27/21 01/27/21 Range/Units 14:35 14:15 WBC 6.5 (4.0-10.5) K/mm3 RBC 4.87 (4.1-5.6) M/mm3 Hgb 15.2 (12.5-18.0) gm/dl Hct 48.0 (42-50) % MCV 98.6 (78-100) fl MCH 31.2 (26-32) pg MCHC 31.7 L (32-36) g/dl RDW 14.0 (11.5-14.0) % Plt Count 180 (150-450) K/mm3 MPV 10.0 (7.5-11.0) fl Gran % 65.8 (36.0-66.0) % Eos # (Auto) 0.17 (0-0.5) Absolute Lymphs (auto) 1.53 (1.0-4.6) Absolute Monos (auto) 0.50 (0.0-1.3) Lymphocytes % 23.4 L (24.0-44.0) % Monocytes % 7.7 (0.0-12.0) % Eosinophils % 2.6 (0.00-5.0) % Basophils % 0.5 (0.0-0.4) % Absolute Granulocytes 4.30 (1.4-6.9) Basophils # 0.03 (0-0.4) Sodium (137-145) mmol/L Potassium (3.5-5.1) mmol/L Chloride (98-107) mmol/L Carbon Dioxide (22-30) mmol/L Anion Gap (5-15) MEQ/L BUN (9-20) mg/dL Creatinine (0.66-1.25) mg/dL Estimated GFR ML/MIN Glucose (74-106) mg/dL Lactic Acid 1.4 (0.4-2.0) Calcium (8.4-10.2) mg/dL Total Bilirubin (0.2-1.3) mg/dL AST (17-59) U/L ALT (0-50) U/L Alkaline Phosphatase (38-126) U/L Troponin I (0.000-0.034) ng/mL Serum Total Protein (6.3-8.2) g/dL Albumin (3.5-5.0) g/dL Lipase (23-300) U/L Urine Color (YELLOW) Urine Appearance (CLEAR) Urine pH (5-6) Ur Specific [place] (1.005-1.025) Urine Protein (Negative) Urine Ketones (NEGATIVE) Urine Blood (0-5) Alvin/ul Urine Nitrite (NEGATIVE) Urine Bilirubin (NEGATIVE) Urine Urobilinogen (0-1) mg/dL Ur Leukocyte Esterase (NEGATIVE) Urine WBC (Auto) (0-5) /HPF Urine RBC (Auto) (0-2) /HPF U Epithel Cells (Auto) (FEW) /HPF Urine Bacteria (Auto) (NEGATIVE) /HPF Urine Mucus (Auto) (NEGATIVE) /HPF Urine Culture Reflexed (NO) Urine Glucose (NEGATIVE) mg/dL - Progress Progress: improved, re-examined Progress Note: 01/27/21 17:47 75 years old male is evaluated for generalized weakness fatigue with decreased oral intake. He is given fluid bolus. He has a nonfocal neuro exam. Work-up showed normal white count, grossly unremarkable chemistries. No UTI. EKG did not show any acute ischemic changes and negative troponins. Patient is feeling better on reevaluation after fluids. Nontoxic-appearing. Not in any distress at all. Recommended increased oral intake. Do not think he needs any work-up and has no obvious cause of weakness. Counseled about smoking cessation. Discussed with , presentation, work-up current management, recommended outpatient follow-up. Plan discussed with patient and family who understand and agree with it. Counseled pt/family regarding: lab results, diagnosis, need for follow-up, rad results, smoking cessation - Departure Departure Disposition: Home Clinical Impression: Generalized weakness Condition: Stable Critical Care Time: No Referrals: JOSHUA HERNANDEZ [Primary Care Provider] - ОЛЬГА COOPER MD [ACTIVE STAFF] - Follow Up with PCP/3 days Instructions: Generalized Weakness (DC) Additional Instructions: Drink plenty of fluids. Take Tylenol as needed for pain. Follow-up with primary care physician for reevaluation early next week. Return to ER for worsening weakness, decreased oral intake/urine output/nausea vomiting/chest pain palpitations or shortness of breath.
[2021-01-27] MEDS ORDERED: Sodium Chloride 0.9% 1000 ML 1,000 ML ONE (14:41)
[2021-01-27] MEDS ORDERED: MORPHINE SULFATE 2 MG INJ ONE (14:41)
[2021-01-27] MEDS ORDERED: Zofran 4 MG/2 ML VIAL ONE (14:41)
[2021-01-27 14:44] LABS: BASOPHIL % 0.5 % (0.0-0.4); Basophil (Absolute #) 0.03 (0-0.4); Eosinophil % 2.6 % (0.00-5.0); Eosinophil (Absolute #) 0.17 (0-0.5); Hemoglobin 15.2 gm/dl (12.5-18.0); Lymphocyte (Absolute #) 1.53 (1.0-4.6); Lymphocytes % 23.4 % (24.0-44.0); Mean Cell Volume 98.6 fl (78-100); Mean Corpuscular Hemoglobin 31.2 pg (26-32); Mean Corpuscular Hgb Concent. 31.7 g/dl (32-36); Monocytes % 7.7 % (0.0-12.0); Neutrophil % 65.8 % (36.0-66.0); Platelet Count 180 K/mm3 (150-450); Red Blood Count 4.87 M/mm3 (4.1-5.6); White Blood Count 6.5 K/mm3 (4.0-10.5)
--- NOTE | 2021-01-27 15:10 | XRAY ---
Indication: Weakness. Comparison: December 16, 2018. Portable apical lordotic chest hyperinflated and clear again with tiny left apical calcified granuloma. Heart not enlarged again with CABG surgery. Bony thorax intact again with mild osteopenia and degenerative changes. Impression: Nonacute hyperinflated chest with chronic features.
--- NOTE | 2021-01-27 15:18 | XRAY ---
Indication: Low back pain. Colitis. Multiple contiguous axial images obtained through the abdomen and pelvis without contrast. Comparison: April 18, 2014. Lung bases again demonstrates mild bibasilar dependent atelectasis. No infiltrate or effusion. Heart not enlarged. Noncontrasted stomach and bowel loops are nonobstructed. Again mobile cecum seen in the right upper quadrant. Normal appendix. Again minimal sigmoid diverticulosis. No free fluid/air. There remains nonspecific bilateral perinephric stranding and numerous tiny hepatic/splenic calcified granulomas. Remaining liver, gallbladder, pancreas, spleen, adrenal glands, kidneys, ureters, and bladder are unremarkable for noncontrast exam. Again moderate scattered vascular calcifications without AAA. Osseous structures again demonstrates osteopenia, mild/moderate degenerative changes throughout the thoracolumbar spine, minimal scoliosis, and moderate degenerative changes of both hips. Impression: 1. Again minimal sigmoid diverticulosis, chronic bony findings, and old granulomatous disease. 2. Remaining CT abdomen/pelvis without contrast exam is negative.
[2021-01-27 15:23] VITALS: PULSE 79
[2021-01-27 15:35] LABS: ALBUMIN 4.1 g/dL (3.5-5.0); ALKALINE PHOSPHATASE 108 U/L (38-126); ANION GAP 14.7 MEQ/L (5-15); BLOOD UREA NITROGEN 12 mg/dL (9-20); CHLORIDE 103 mmol/L (98-107); Calcium 9.1 mg/dL (8.4-10.2); Carbon Dioxide 25 mmol/L (22-30); Creatinine 1 0.81 mg/dL (0.66-1.25); EST GLOMERULAR FILTRATION RATE > 60.0 ML/MIN; Glucose 93 mg/dL (74-106); LIPASE 19 U/L (23-300); Potassium 4.3 mmol/L (3.5-5.1); SGOT/AST 25 U/L (17-59); SGPT/ALT 15 U/L (0-50); SODIUM 139 mmol/L (137-145); Total Protein 7.4 g/dL (6.3-8.2)
[2021-01-27 16:50] VITALS: BP 164/82
[2021-01-27 17:32] LABS: Appearance CLEAR (CLEAR); Bilirubin NEGATIVE (NEGATIVE); Blood NEGATIVE Ery/ul (0-5); Glucose NEGATIVE (NEGATIVE); Ketones SMALL (NEGATIVE); Leukocyte Esterase NEGATIVE (NEGATIVE); Mucus SLIGHT /HPF (NEGATIVE); Nitrite NEGATIVE (NEGATIVE); Protein,Urine Dip NEGATIVE (Negative); RBC 0-2 /HPF (0-2); Specific Gravity 1.018 (1.005-1.025); Urobilinogen 4 mg/dL (0-1); WBC 0-2 /HPF (0-5)
[2021-01-27 17:35] LABS: Bacteria NONE SEEN /HPF (NEGATIVE)
[2021-01-27 17:51] VITALS: O2SAT 97
== END 2021-01-27 18:24 | disposition home or self-care (01) ==
LOC: ED 13:46
DX: R53.1 Weakness (principal); R19.7 Diarrhea, unspecified; F17.210 Nicotine dependence, cigarettes, uncomplicated; J44.9 Chronic obstructive pulmonary disease, unspecified; E11.9 Type 2 diabetes mellitus without complications; M54.9 Dorsalgia, unspecified; R11.0 Nausea; Z95.1 Presence of aortocoronary bypass graft; R53.83 Other fatigue; Z79.899 Other long term (current) drug therapy; Z79.01 Long term (current) use of anticoagulants; I25.10 Atherosclerotic heart disease of native coronary artery without angina pectoris
CPT/HCPCS: 36000; 36415; 71045; 74176; 80053; 81001; 83605; 83690; 84484; 85025; 87040; 93005; 96360; 96374; 96375; 99284; J2270; J2405

== ENCOUNTER 2021-01-31 16:02 | Observation (INO) | payer MEDICARE ==
[2021-01-31] MEDS ORDERED: Zofran 4 MG/2 ML VIAL IV PRN (16:22)
[2021-01-31 16:42] LABS: Hematocrit 48.4 % (42-50); Hemoglobin 15.5 gm/dl (12.5-18.0); Mean Cell Volume 97.4 fl (78-100); Mean Corpuscular Hemoglobin 31.2 pg (26-32); Mean Platelet Volume 10.3 fl (7.5-11.0); Platelet Count 186 K/mm3 (150-450); Red Blood Count 4.97 M/mm3 (4.1-5.6); Red Cell Distribution Width 13.9 % (11.5-14.0); White Blood Count 8.5 K/mm3 (4.0-10.5)
[2021-01-31 16:50] LABS: A-aADO2 49; ABG HEMOGLOBIN 15.8; ARTERIAL BLD GAS O2 SATURATION 92.3 % (95-100); ARTERIAL BLOOD GAS BASE EXCESS -2.9 (-2.0-2.0); ARTERIAL BLOOD GAS FIO2 21 %; ARTERIAL BLOOD GAS PCO2 33 mmHg (35-45); ARTERIAL BLOOD GAS PO2 59 mmHg (75-100); ARTERIAL BLOOD GAS pH 7.41 (7.35-7.45); CARBOXYHEMOGLOBIN 1.3 % THgb (0.0-6.9); HCO3- 20.9 (22-28); HGB O2 SAT 90.1 g/dF (94-100)
[2021-01-31 16:51] LABS: ABG SITE RIGHT BRACHIAL; ALLEN TEST OK? YES
[2021-01-31] MEDS ORDERED: PROTONIX 40 MG IV IV SCH (17:00)
[2021-01-31 17:05] LABS: ALBUMIN 4.2 g/dL (3.5-5.0); ALKALINE PHOSPHATASE 100 U/L (38-126); ANION GAP 17.4 MEQ/L (5-15); BLOOD UREA NITROGEN 17 mg/dL (9-20); CHLORIDE 104 mmol/L (98-107); Calcium 9.2 mg/dL (8.4-10.2); Carbon Dioxide 20 mmol/L (22-30); Creatinine 1 0.87 mg/dL (0.66-1.25); EST GLOMERULAR FILTRATION RATE > 60.0 ML/MIN; Glucose 105 mg/dL (74-106); SGOT/AST 34 U/L (17-59); SGPT/ALT 18 U/L (0-50); SODIUM 137 mmol/L (137-145); TROPONIN < 0.012 ng/mL (0.000-0.034); Total Protein 7.5 g/dL (6.3-8.2)
[2021-01-31] MEDS ORDERED: HUMALOG SQ PRN ×2 (17:15→17:30)
[2021-01-31] MEDS ORDERED: INSULIN LISPRO 1 UNIT SQ SCH (17:15)
[2021-01-31] MEDS ORDERED: MEDICATION INTERVENTION PO SCH ×2 (17:30)
[2021-01-31] MEDS: Sodium Chloride 0.9% 1000 ML 1,000 ML IV SCH (17:31)
[2021-01-31] MEDS: NEURONTIN 300 MG PO SCH ×2 (17:32→21:16)
[2021-01-31] MEDS: LASIX 20 MG PO SCH (17:37)
[2021-01-31] MEDS: Cymbalta 30 MG Capsule PO SCH (21:15)
[2021-01-31] MEDS: zyPREXA 5MG TABLET PO SCH (21:15)
[2021-01-31] MEDS: Pepcid 20 MG VIAL IV SCH (21:16)
[2021-01-31] MEDS: Klor Con 10 MEQ PO SCH (21:16)
[2021-01-31] MEDS: Coreg 3.125 MG PO SCH (21:16)
[2021-01-31] MEDS ORDERED: NON-FORMULARY ITEM (Potassium Chloride [Potassium Chloride] 8 MEQ) PO SCH (22:00)
[2021-01-31] MEDS ORDERED: NON-FORMULARY ITEM (Niacin 500 Mg*** [Niaspan 500 Mg***] 500 MG) PO SCH (22:00)
[2021-01-31] MEDS ORDERED: NALTREXONE HCL 50 MG PO SCH (22:00)
[2021-01-31 23:03] LABS: Appearance CLEAR (CLEAR); Bilirubin NEGATIVE (NEGATIVE); Blood NEGATIVE Ery/ul (0-5); Glucose NEGATIVE (NEGATIVE); Ketones SMALL (NEGATIVE); Leukocyte Esterase NEGATIVE (NEGATIVE); Mucus SLIGHT /HPF (NEGATIVE); Nitrite NEGATIVE (NEGATIVE); Protein,Urine Dip NEGATIVE (Negative); Specific Gravity 1.023 (1.005-1.025); Urobilinogen 2 mg/dL (0-1)
[2021-02-01] MEDS: Sodium Chloride 0.9% 1000 ML 1,000 ML IV SCH ×3 (00:57→17:55)
--- NOTE | 2021-02-01 09:09 | XRAY ---
Indication: Dehydration. Diarrhea. Comparison: January 27, 2021. Portable apical lordotic chest unchanged again hyperinflated and clear with tiny left apical calcified granuloma. Heart not enlarged again with CABG surgery. No new/acute findings.
[2021-02-01] MEDS ORDERED: NON-FORMULARY ITEM (Rosuvastatin Calcium [Rosuvastatin Calcium] 10 MG) PO SCH (10:00)
[2021-02-01] MEDS: NEURONTIN 300 MG PO SCH ×4 (10:11→21:28)
[2021-02-01] MEDS: PLAVIX 75 MG Tablet PO SCH (10:11)
[2021-02-01] MEDS: ECOTRIN 81 MG PO SCH (10:12)
[2021-02-01] MEDS: Protonix 40MG Tablet PO SCH (10:13)
[2021-02-01] MEDS: Cymbalta 30 MG Capsule PO SCH ×2 (10:13→21:27)
[2021-02-01] MEDS: Flomax 0.4 MG PO SCH (10:14)
[2021-02-01] MEDS: zyPREXA 5MG TABLET PO SCH ×2 (10:14→21:28)
[2021-02-01] MEDS: DELTASONE 5 MG PO SCH (10:14)
[2021-02-01] MEDS: Coreg 3.125 MG PO SCH ×2 (10:14→21:27)
[2021-02-01] MEDS: LASIX 20 MG PO SCH ×2 (10:15→16:29)
[2021-02-01] MEDS: ZOCOR 20MG PO SCH (10:16)
[2021-02-01] MEDS: Klor Con 10 MEQ PO SCH ×2 (10:16→21:28)
[2021-02-01] MEDS: Proscar 5 MG PO SCH (10:16)
[2021-02-01] MEDS: Vitamin C 500 MG PO SCH (10:17)
[2021-02-01] MEDS: Lantus Insulin SQ SCH (10:19)
[2021-02-01] MEDS: Pepcid 20 MG VIAL IV SCH ×2 (10:24→21:28)
--- NOTE | 2021-02-01 11:59 | PCM.HP ---
History of Present Illness - Chief Complaint Chief Complaint: dehydration,diarrhea for 3 weeks, failed out patient treatment History of Present Illness: is a 75 year old male started having diarrhea for 3 weeks. He was in ER and work up negative but patient continues to have diarrhea and he is getting more weak - Review of Systems Constitutional: Fatigue, Lethargy, Weakness, Weight Loss, No Fever, No Chills Eyes: No Symptoms Ears, Nose, & Throat: No Symptoms Respiratory: Cough, Orthopnea, Short Of Breath Cardiac: No Chest Pain, No Edema, No Syncope Abdominal/Gastrointestinal: Diarrhea, No Abdominal Pain, No Nausea, No Vomiting Genitourinary Symptoms: No Dysuria Musculoskeletal: No Back Pain, No Neck Pain Skin: No Rash Neurological: No Dizziness, No Focal Weakness, No Sensory Changes Psychological: No Symptoms Endocrine: No Symptoms Hematologic/Lymphatic: No Symptoms Immunological/Allergic: No Symptoms Medications & Allergies Home Medications: Home Medication List Aspirin EC 81 mg [Ecotrin 81 mg] 81 mg PO DAILY 01/13/13 [History Confirmed 01/31/21] Carvedilol 3.125 mg [Coreg 3.125 MG] 3.125 mg PO BID 01/13/13 [History Confirmed 01/31/21] Clopidogrel Bisulfate 75 mg [PLAVIX 75 MG Tablet] 75 mg PO DAILY 01/13/13 [History Confirmed 01/31/21] Niacin 500 mg [Niaspan 500 mg] 500 mg PO HS 01/13/13 [History Confirmed 01/31/21] Tamsulosin HCl 0.4 mg [Flomax 0.4 MG] 0.4 mg PO DAILY 01/13/13 [History Confirmed 01/31/21] Furosemide 20 mg [Lasix 20 mg] 20 mg PO BID 05/09/16 [History Confirmed 01/31/21] Finasteride 5 mg [Proscar 5 MG] 5 mg PO DAILY 10/26/16 [History Confirmed 01/31/21] Gabapentin 400 mg [Neurontin 400 MG] 600 mg PO QID 10/26/16 [History Confirmed 01/31/21] PANTOPRAZOLE 40 mg Tablet [Protonix 40MG Tablet] 40 mg PO QAM 10/26/16 [History Confirmed 01/31/21] Potassium Chloride 8 meq PO BID 10/26/16 [History Confirmed 01/31/21] Prednisone 5 mg [Deltasone 5 mg] 5 mg PO DAILY 10/26/16 [History Confirmed 01/31/21] Insulin Lispro [Humalog Kwikpen U-100] 1 unit SQ UD 12/16/18 [History Confirmed 01/31/21] Duloxetine HCl 30 mg [Cymbalta 30 MG Capsule] 30 mg PO BID #60 cap 12/10/20 [Rx Confirmed 01/31/21] Naltrexone HCl 50 mg PO BID #60 tablet 12/10/20 [Rx Confirmed 01/31/21] Olanzapine 5 mg [zyPREXA 5MG TABLET] 5 mg PO BID #60 tab 12/10/20 [Rx Confirmed 01/31/21] Insulin Glargine,Hum.rec.anlog [Lantus] 40 unit SQ DAILY 01/27/21 [History Confirmed 01/31/21] Rosuvastatin Calcium 10 mg PO DAILY 01/27/21 [History Confirmed 01/31/21] Ascorbic Acid 500 mg [Vitamin C 500 MG] 1,000 mg PO DAILY 01/31/21 [History Confirmed 01/31/21] Allergies/Adverse Reactions: Allergies Allergy/AdvReac Type Severity Reaction Status Date / Time diazepam [From Valium] AdvReac Intermediate Hallucinati Verified 01/27/21 14:01 ons - Past Medical History Past Medical History: Yes Neurological History: Peripheral Neuropathy ENT History: No Pertinent History Cardiac History: Other Respiratory History: COPD Endocrine Medical History: Diabetes Type II Musculoskelatal History: Osteoarthritis, Other GI Medical History: GERD History: Renal Disease Pyscho-Social History: Anxiety, Depression Male Reproductive Disorders: Prostate Problems 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 quad bypass - Social History Smoking Status: Heavy tobacco smoker How long have you smoked: years Exposure to second hand smoke: Yes Alcohol: None Drug Use: marijuana Significant Family History: heart disease - Physical Exam Vital Signs: Vital Signs - 24 hr Temp Pulse Resp BP Pulse Ox 02/01/21 08:00 97.8 F 67 16 124/65 93 L 02/01/21 04:00 98.3 F 69 16 108/60 94 L 01/31/21 23:10 97.7 F 71 18 109/59 93 L 01/31/21 19:46 97.7 F 83 17 114/70 94 L 01/31/21 16:42 98.2 F 67 20 128/71 95 01/31/21 16:14 97.7 F 65 20 128/71 95 General Appearance: moderate distress, alert Neurologic Exam: alert, oriented x 3, cooperative, normal mood/affect, nml cerebellar function, nml station & gait, sensation nml, No motor deficits Eye Exam: PERRL/EOMI, eyes nml inspection Ears, Nose, Throat Exam: normal ENT inspection, TMs normal, pharynx normal, moist mucous membranes Neck Exam: normal inspection, non-tender, supple, full range of motion Respiratory Exam: lungs clear, diminished breath sounds, crackles/rales, rhonchi, wheezing, No respiratory distress Cardiovascular Exam: normal heart sounds, normal peripheral pulses, tachycardia, irregular Gastrointestinal/Abdomen Exam: soft, normal bowel sounds, No tenderness, No mass Back Exam: normal inspection, normal range of motion, No CVA tenderness, No vertebral tenderness Extremity Exam: normal inspection, normal range of motion, pelvis stable, amputations, other Skin Exam: normal color, warm, dry, No rash Wound Assessment: Skin/Wound Assessment Wound/Incision Assessment Start: 01/31/21 17:39 Text: Status: Active Freq: Q6H Protocol: Document 02/01/21 07:51 HN (Rec: 02/01/21 08:04 HN [id number]) Wound/Incision Assessment Left Foot Wound Assessment Shift Assessment Wound Type Pressure Ulcer Wound Stage Unstageable General Appearance Open to air Lymphatic Exam: No adenopathy Results - Labs Lab/Micro Results: Lab Results-Last 24 Hours 01/31/21 01/31/21 01/31/21 Range/Units 16:16 16:25 16:28 WBC 8.5 (4.0-10.5) K/mm3 RBC 4.97 (4.1-5.6) M/mm3 Hgb 15.5 (12.5-18.0) gm/dl Hct 48.4 (42-50) % MCV 97.4 (78-100) fl MCH 31.2 (26-32) pg MCHC 32.0 (32-36) g/dl RDW 13.9 (11.5-14.0) % Plt Count 186 (150-450) K/mm3 MPV 10.3 (7.5-11.0) fl Puncture Site pCO2 (35-45) mmHg pO2 (75-100) mmHg Base Excess (-2.0-2.0) O2 Saturation (94-100) g/dF ABG pH (7.35-7.45) ABG HCO3 (22-28) ABG O2 Sat (Measured) (95-100) % Real Test A-a Gradient a/A Ratio Hemoglobin Carboxyhemoglobin (0.0-6.9) % THgb Methemoglobin (1.4-1.5) % Temperature C POC O2 Flow Rate % Sodium (137-145) mmol/L Potassium (3.5-5.1) mmol/L Chloride (98-107) mmol/L Carbon Dioxide (22-30) mmol/L Anion Gap (5-15) MEQ/L BUN (9-20) mg/dL Creatinine (0.66-1.25) mg/dL Estimated GFR ML/MIN Glucose (74-106) mg/dL POC Glucometer (74 to 106) mg/dL Hemoglobin A1c (4.5-6.0) % Calcium (8.4-10.2) mg/dL Total Bilirubin (0.2-1.3) mg/dL AST (17-59) U/L ALT (0-50) U/L Alkaline Phosphatase (38-126) U/L Troponin I (0.000-0.034) ng/mL Serum Total Protein (6.3-8.2) g/dL Albumin (3.5-5.0) g/dL Urine Color ASHLEY (YELLOW) Urine Appearance CLEAR (CLEAR) Urine pH 5.0 (5-6) Ur Specific [place] 1.023 (1.005-1.025) Urine Protein NEGATIVE (Negative) Urine Ketones SMALL (NEGATIVE) Urine Blood NEGATIVE (0-5) Alvin/ul Urine Nitrite NEGATIVE (NEGATIVE) Urine Bilirubin NEGATIVE (NEGATIVE) Urine Urobilinogen 2 (0-1) mg/dL Ur Leukocyte Esterase NEGATIVE (NEGATIVE) Urine WBC (Auto) NONE (0-5) /HPF Urine RBC (Auto) NONE (0-2) /HPF U Epithel Cells (Auto) NONE (FEW) /HPF Urine Bacteria (Auto) NONE (NEGATIVE) /HPF Urine Mucus (Auto) SLIGHT (NEGATIVE) /HPF Urine Culture Reflexed NO (NO) Urine Glucose NEGATIVE (NEGATIVE) mg/dL SARS-CoV-2 (PCR) NEGATIVE (NEGATIVE) 01/31/21 01/31/21 01/31/21 Range/Units 16:28 16:28 16:40 WBC (4.0-10.5) K/mm3 RBC (4.1-5.6) M/mm3 Hgb (12.5-18.0) gm/dl Hct (42-50) % MCV (78-100) fl MCH (26-32) pg MCHC (32-36) g/dl RDW (11.5-14.0) % Plt Count (150-450) K/mm3 MPV (7.5-11.0) fl Puncture Site RIGHT BRACHIAL pCO2 33 L (35-45) mmHg pO2 59 L (75-100) mmHg Base Excess -2.9 L (-2.0-2.0) O2 Saturation 90.1 L (94-100) g/dF ABG pH 7.41 (7.35-7.45) ABG HCO3 20.9 L (22-28) ABG O2 Sat (Measured) 92.3 L (95-100) % Real Test YES A-a Gradient 49 a/A Ratio 0.55 Hemoglobin 15.8 Carboxyhemoglobin 1.3 (0.0-6.9) % THgb Methemoglobin 1.0 L (1.4-1.5) % Temperature 37.0 C POC O2 Flow Rate 21 % Sodium 137 (137-145) mmol/L Potassium 4.0 4.0 (3.5-5.1) mmol/L Chloride 104 (98-107) mmol/L Carbon Dioxide 20 L (22-30) mmol/L Anion Gap 17.4 H (5-15) MEQ/L BUN 17 (9-20) mg/dL Creatinine 0.87 (0.66-1.25) mg/dL Estimated GFR > 60.0 ML/MIN Glucose 105 (74-106) mg/dL POC Glucometer (74 to 106) mg/dL Hemoglobin A1c 5.76 (4.5-6.0) % Calcium 9.2 (8.4-10.2) mg/dL Total Bilirubin 0.60 (0.2-1.3) mg/dL AST 34 (17-59) U/L ALT 18 (0-50) U/L Alkaline Phosphatase 100 (38-126) U/L Troponin I < 0.012 (0.000-0.034) ng/mL Serum Total Protein 7.5 (6.3-8.2) g/dL Albumin 4.2 (3.5-5.0) g/dL Urine Color (YELLOW) Urine Appearance (CLEAR) Urine pH (5-6) Ur Specific [place] (1.005-1.025) Urine Protein (Negative) Urine Ketones (NEGATIVE) Urine Blood (0-5) Alvin/ul Urine Nitrite (NEGATIVE) Urine Bilirubin (NEGATIVE) Urine Urobilinogen (0-1) mg/dL Ur Leukocyte Esterase (NEGATIVE) Urine WBC (Auto) (0-5) /HPF Urine RBC (Auto) (0-2) /HPF U Epithel Cells (Auto) (FEW) /HPF Urine Bacteria (Auto) (NEGATIVE) /HPF Urine Mucus (Auto) (NEGATIVE) /HPF Urine Culture Reflexed (NO) Urine Glucose (NEGATIVE) mg/dL SARS-CoV-2 (PCR) (NEGATIVE) 01/31/21 02/01/21 Range/Units 21:09 07:32 WBC (4.0-10.5) K/mm3 RBC (4.1-5.6) M/mm3 Hgb (12.5-18.0) gm/dl Hct (42-50) % MCV (78-100) fl MCH (26-32) pg MCHC (32-36) g/dl RDW (11.5-14.0) % Plt Count (150-450) K/mm3 MPV (7.5-11.0) fl Puncture Site pCO2 (35-45) mmHg pO2 (75-100) mmHg Base Excess (-2.0-2.0) O2 Saturation (94-100) g/dF ABG pH (7.35-7.45) ABG HCO3 (22-28) ABG O2 Sat (Measured) (95-100) % Real Test A-a Gradient a/A Ratio Hemoglobin Carboxyhemoglobin (0.0-6.9) % THgb Methemoglobin (1.4-1.5) % Temperature C POC O2 Flow Rate % Sodium (137-145) mmol/L Potassium (3.5-5.1) mmol/L Chloride (98-107) mmol/L Carbon Dioxide (22-30) mmol/L Anion Gap (5-15) MEQ/L BUN (9-20) mg/dL Creatinine (0.66-1.25) mg/dL Estimated GFR ML/MIN Glucose (74-106) mg/dL POC Glucometer 108 H 77 (74 to 106) mg/dL Hemoglobin A1c (4.5-6.0) % Calcium (8.4-10.2) mg/dL Total Bilirubin (0.2-1.3) mg/dL AST (17-59) U/L ALT (0-50) U/L Alkaline Phosphatase (38-126) U/L Troponin I (0.000-0.034) ng/mL Serum Total Protein (6.3-8.2) g/dL Albumin (3.5-5.0) g/dL Urine Color (YELLOW) Urine Appearance (CLEAR) Urine pH (5-6) Ur Specific [place] (1.005-1.025) Urine Protein (Negative) Urine Ketones (NEGATIVE) Urine Blood (0-5) Alvin/ul Urine Nitrite (NEGATIVE) Urine Bilirubin (NEGATIVE) Urine Urobilinogen (0-1) mg/dL Ur Leukocyte Esterase (NEGATIVE) Urine WBC (Auto) (0-5) /HPF Urine RBC (Auto) (0-2) /HPF U Epithel Cells (Auto) (FEW) /HPF Urine Bacteria (Auto) (NEGATIVE) /HPF Urine Mucus (Auto) (NEGATIVE) /HPF Urine Culture Reflexed (NO) Urine Glucose (NEGATIVE) mg/dL SARS-CoV-2 (PCR) (NEGATIVE) - Radiology Impressions Radiology Exams & Impressions: Radiology Procedures Category Date Time Status ABDOMEN AND PELVIS W&WO CONTRA [CT] Stat Exams 02/01/21 11:16 Ordered CHEST 1 VIEW (PORTABLE) Routine Exams 01/31/21 19:30 Completed CHEST W/WO CONTRAST [CT] Stat Exams 02/01/21 11:16 Ordered RAD/CHEST 1 VIEW (PORTABLE) Indication: Dehydration. Diarrhea. Comparison: January 27, 2021. Portable apical lordotic chest unchanged again hyperinflated and clear with tiny left apical calcified granuloma. Heart not enlarged again with CABG surgery. No new/acute findings. Assessment/Plan (1) Dehydration Current Visit: Yes Status: Acute Assessment & Plan: Chief Complaint Diagnosis dehydration,diarrhea Allergies Allergy/AdvReac Type Severity Reaction Status Date / Time diazepam [From Valium] AdvReac Intermediate Hallucinati Verified 01/27/21 14:01 ons Vital Signs (Last 24 hours) Temp Pulse Resp BP Pulse Ox 02/01/21 08:00 97.8 F 67 16 124/65 93 L 02/01/21 04:00 98.3 F 69 16 108/60 94 L 01/31/21 23:10 97.7 F 71 18 109/59 93 L 01/31/21 19:46 97.7 F 83 17 114/70 94 L 01/31/21 16:42 98.2 F 67 20 128/71 95 01/31/21 16:14 97.7 F 65 20 128/71 95 Home Medications Medication Instructions Recorded Confirmed Last Taken Type Ascorbic Acid 500 mg [Vitamin C 1,000 mg PO DAILY 01/31/21 01/31/21 01/31/21 History 500 MG] Current Medications Generic Name Dose Route Start Last Admin Trade Name Freq PRN Reason Stop Dose Admin Ascorbic Acid 1,000 mg 02/01/21 10:00 02/01/21 10:17 Vitamin C 500 Mg PO 03/03/21 09:59 1,000 mg DAILY ETHAN Administration Aspirin 81 mg 02/01/21 10:00 02/01/21 10:12 Ecotrin 81 Mg PO 03/03/21 09:59 81 mg DAILY ETHAN Administration Carvedilol 3.125 mg 01/31/21 22:00 02/01/21 10:14 Coreg 3.125 Mg PO 03/02/21 21:59 3.125 mg BID ETHAN Administration Clopidogrel Bisulfate 75 mg 02/01/21 10:00 02/01/21 10:11 Plavix 75 Mg Tablet PO 03/03/21 09:59 75 mg DAILY ETHAN Administration Duloxetine HCl 30 mg 01/31/21 22:00 02/01/21 10:13 Cymbalta 30 Mg Capsule PO 03/02/21 21:59 30 mg BID ETHAN Administration Famotidine 20 mg 01/31/21 22:00 02/01/21 10:24 Pepcid 20 Mg Vial IV 03/02/21 21:59 20 mg BID ETHAN Administration Finasteride 5 mg 02/01/21 10:00 02/01/21 10:16 Proscar 5 Mg PO 03/03/21 09:59 5 mg DAILY ETHAN Administration Furosemide 20 mg 01/31/21 18:00 02/01/21 10:15 Lasix 20 Mg PO 03/02/21 17:59 20 mg BID DIURETIC ETHAN Administration Gabapentin 600 mg 01/31/21 18:00 02/01/21 10:11 Neurontin 300 Mg PO 03/02/21 17:59 600 mg QID ETHAN Administration Sodium Chloride 1,000 mls @ 120 mls/hr 01/31/21 16:30 02/01/21 10:10 Sodium Chloride 0.9% 1000 Ml IV 03/02/21 16:29 120 mls/hr .[id number] ETHAN Administration Insulin Glargine 40 unit 02/01/21 10:00 02/01/21 10:19 Lantus Insulin SQ 03/03/21 09:59 Not Given DAILY ETHAN Insulin Human Lispro 0 unit 01/31/21 17:30 Humalog SQ 03/02/21 17:29 UD PRN Miscellaneous Information 1 each 01/31/21 17:30 Medication Intervention PO 03/02/21 17:29 .RN TO CHECK ON ETHAN Miscellaneous Information 1 each 01/31/21 17:30 Medication Intervention PO 03/02/21 17:29 .RN TO CHECK ON ETHAN Olanzapine 5 mg 01/31/21 22:00 02/01/21 10:14 Zyprexa 5mg Tablet PO 03/02/21 21:59 5 mg BID ETHAN Administration Ondansetron HCl 4 mg 01/31/21 16:22 01/31/21 17:31 Zofran 4 Mg/2 Ml Vial IV 03/02/21 16:21 4 mg Q6H PRN PRN Administration NAUSEA/VOMITING Pantoprazole Sodium 40 mg 02/01/21 10:00 02/01/21 10:13 Protonix 40mg Tablet PO 03/03/21 09:59 40 mg QAM ETHAN Administration Potassium Chloride 10 meq 01/31/21 22:00 02/01/21 10:16 Klor Con 10 Meq PO 03/02/21 21:59 10 meq BID ETHAN Administration Prednisone 5 mg 02/01/21 10:00 02/01/21 10:14 Deltasone 5 Mg PO 03/03/21 09:59 5 mg DAILY ETHAN Administration Simvastatin 20 mg 02/01/21 10:00 02/01/21 10:16 Zocor 20mg PO 03/03/21 09:59 20 mg DAILY ETHAN Administration Tamsulosin HCl 0.4 mg 02/01/21 10:00 02/01/21 10:14 Flomax 0.4 Mg PO 03/03/21 09:59 0.4 mg DAILY ETHAN Administration Discontinued Medications Generic Name Dose Route Start Last Admin Trade Name Freq PRN Reason Stop Dose Admin Pantoprazole Sodium 40 mg 01/31/21 17:00 01/31/21 17:28 Protonix 40 Mg Iv IV 03/02/21 16:59 Not Given DAILY ETHAN Intake & Output (Last 24 hours) 01/29/21 01/30/21 01/31/21 02/01/21 11:59 11:59 11:59 11:59 Intake Total 1802 Output Total 200 Balance 1602 Weight 85.5 kg Laboratory Results (Last 24 hours) 02/01/21 01/31/21 01/31/21 07:32 21:09 16:40 WBC RBC Hgb Hct MCV MCH MCHC RDW Plt Count MPV Puncture Site RIGHT BRACHIAL pCO2 33 L pO2 59 L Base Excess -2.9 L O2 Saturation 90.1 L ABG pH 7.41 ABG HCO3 20.9 L ABG O2 Sat (Measured) 92.3 L Real Test YES A-a Gradient 49 a/A Ratio 0.55 Hemoglobin 15.8 Carboxyhemoglobin 1.3 Methemoglobin 1.0 L Temperature 37.0 POC O2 Flow Rate 21 Sodium Potassium 4.0 Chloride Carbon Dioxide Anion Gap BUN Creatinine Estimated GFR Glucose POC Glucometer 77 108 H Hemoglobin A1c Calcium Total Bilirubin AST ALT Alkaline Phosphatase Troponin I Serum Total Protein Albumin Urine Color Urine Appearance Urine pH Ur Specific [place] Urine Protein Urine Ketones Urine Blood Urine Nitrite Urine Bilirubin Urine Urobilinogen Ur Leukocyte Esterase Urine WBC (Auto) Urine RBC (Auto) U Epithel Cells (Auto) Urine Bacteria (Auto) Urine Mucus (Auto) Urine Culture Reflexed Urine Glucose SARS-CoV-2 (PCR) 01/31/21 01/31/21 01/31/21 16:28 16:28 16:28 WBC 8.5 RBC 4.97 Hgb 15.5 Hct 48.4 MCV 97.4 MCH 31.2 MCHC 32.0 RDW 13.9 Plt Count 186 MPV 10.3 Puncture Site pCO2 pO2 Base Excess O2 Saturation ABG pH ABG HCO3 ABG O2 Sat (Measured) Real Test A-a Gradient a/A Ratio Hemoglobin Carboxyhemoglobin Methemoglobin Temperature POC O2 Flow Rate Sodium 137 Potassium 4.0 Chloride 104 Carbon Dioxide 20 L Anion Gap 17.4 H BUN 17 Creatinine 0.87 Estimated GFR > 60.0 Glucose 105 POC Glucometer Hemoglobin A1c 5.76 Calcium 9.2 Total Bilirubin 0.60 AST 34 ALT 18 Alkaline Phosphatase 100 Troponin I < 0.012 Serum Total Protein 7.5 Albumin 4.2 Urine Color Urine Appearance Urine pH Ur Specific [place] Urine Protein Urine Ketones Urine Blood Urine Nitrite Urine Bilirubin Urine Urobilinogen Ur Leukocyte Esterase Urine WBC (Auto) Urine RBC (Auto) U Epithel Cells (Auto) Urine Bacteria (Auto) Urine Mucus (Auto) Urine Culture Reflexed Urine Glucose SARS-CoV-2 (PCR) 01/31/21 01/31/21 16:25 16:16 WBC RBC Hgb Hct MCV MCH MCHC RDW Plt Count MPV Puncture Site pCO2 pO2 Base Excess O2 Saturation ABG pH ABG HCO3 ABG O2 Sat (Measured) Real Test A-a Gradient a/A Ratio Hemoglobin Carboxyhemoglobin Methemoglobin Temperature POC O2 Flow Rate Sodium Potassium Chloride Carbon Dioxide Anion Gap BUN Creatinine Estimated GFR Glucose POC Glucometer Hemoglobin A1c Calcium Total Bilirubin AST ALT Alkaline Phosphatase Troponin I Serum Total Protein Albumin Urine Color ASHLEY Urine Appearance CLEAR Urine pH 5.0 Ur Specific [place] 1.023 Urine Protein NEGATIVE Urine Ketones SMALL Urine Blood NEGATIVE Urine Nitrite NEGATIVE Urine Bilirubin NEGATIVE Urine Urobilinogen 2 Ur Leukocyte Esterase NEGATIVE Urine WBC (Auto) NONE Urine RBC (Auto) NONE U Epithel Cells (Auto) NONE Urine Bacteria (Auto) NONE Urine Mucus (Auto) SLIGHT Urine Culture Reflexed NO Urine Glucose NEGATIVE SARS-CoV-2 (PCR) NEGATIVE Orders (Last 24 hours) Category Date Time Status POCT Glucose Check ACHS Care 01/31/21 16:[address] in Observation ROUTINE Care 01/31/21 16:02 Active [employer]/Discharge Plan ROUTINE Cons 01/31/21 16:37 Active Clear Liquid Diet 01/31/21 Dinner Completed NPO Diet 02/01/21 11:17 Active ABDOMEN AND PELVIS W&WO CONTRA [CT] Stat Exams 02/01/21 11:16 Ordered CHEST 1 VIEW (PORTABLE) Routine Exams 01/31/21 19:30 Completed CHEST W/WO CONTRAST [CT] Stat Exams 02/01/21 11:16 Ordered ARTERIAL BLOOD GASES Urgent Lab 01/31/21 16:40 Completed CBC Urgent Lab 01/31/21 16:28 Completed CMP Urgent Lab 01/31/21 16:28 Completed HEMOGLOBIN A1C Urgent Lab 01/31/21 16:28 Completed POCT GLUCOSE Stat Lab 01/31/21 21:09 Completed POCT GLUCOSE Stat Lab 02/01/21 07:32 Completed SARS-CoV-2 Xpert Express Routine Lab 01/31/21 16:16 Completed TROPONIN Urgent Lab 01/31/21 16:28 Completed UA W/RFX UR CULTURE Urgent Lab 01/31/21 16:25 Completed Ascorbic Acid 500 mg [Vitamin C 500 MG] Med 02/01/21 10:00 Active 1,000 mg PO DAILY Aspirin EC 81 mg [Ecotrin 81 mg] Med 02/01/21 10:00 Active 81 mg PO DAILY Carvedilol 3.125 mg [Coreg 3.125 MG] Med 01/31/21 22:00 Active 3.125 mg PO BID Clopidogrel Bisulfate 75 mg [PLAVIX 75 MG Tablet] Med 02/01/21 10:00 Active 75 mg PO DAILY Duloxetine HCl 30 mg [Cymbalta 30 MG Capsule] Med 01/31/21 22:00 Active 30 mg PO BID Famotidine 20 mg Vial [Pepcid 20 MG VIAL] Med 01/31/21 22:00 Active 20 mg IV BID Finasteride 5 mg [Proscar 5 MG] Med 02/01/21 10:00 Active 5 mg PO DAILY Furosemide 20 mg [Lasix 20 mg] Med 01/31/21 18:00 Active 20 mg PO BID DIURETIC Gabapentin 300 mg [Neurontin 300 mg] Med 01/31/21 18:00 Active 600 mg PO QID Insulin Glargine [Lantus Insulin] Med 02/01/21 10:00 Active 40 unit SQ DAILY Insulin Lispro [Humalog] Med 01/31/21 17:30 Active 0 unit SQ UD PRN Medication Intervention Med 01/31/21 17:30 Active 1 each PO .RN TO CHECK ON Medication Intervention Med 01/31/21 17:30 Active 1 each PO .RN TO CHECK ON NaCl 0.9% 1000 ml [Sodium Chloride 0.9% 1000 ML] 1,000 Med 01/31/21 16:30 Active ml IV 120 mls/hr Olanzapine 5 mg [zyPREXA 5MG TABLET] Med 01/31/21 22:00 Active 5 mg PO BID Ondansetron HCl 4 mg/2 ml [Zofran 4 MG/2 ML VIAL] Med 01/31/21 16:22 Active 4 mg IV Q6H PRN PRN PANTOPRAZOLE 40 mg Tablet [Protonix 40MG Tablet] Med 02/01/21 10:00 Active 40 mg PO QAM Pantoprazole 40 mg [Protonix 40 mg IV] Med 01/31/21 17:00 Discontinued 40 mg IV DAILY Potassium Chloride 10 Meq Tab* [Klor Con 10 MEQ] Med 01/31/21 22:00 Active 10 meq PO BID Prednisone 5 mg [Deltasone 5 mg] Med 02/01/21 10:00 Active 5 mg PO DAILY Simvastatin 20Mg [Zocor 20Mg] Med 02/01/21 10:00 Active 20 mg PO DAILY Tamsulosin HCl 0.4 mg [Flomax 0.4 MG] Med 02/01/21 10:00 Active 0.4 mg PO DAILY EKG ROUTINE RT 01/31/21 16:25 Completed Patient Care Notes (Last 24 hours) 02/01/21 11:01 Case Management Note by Harmony Goff REFERRAL FAXED TO [facility] FOR [facility] REQUESTED Initialized on 02/01/21 11:01 - END OF NOTE Code(s): E86.0 - DEHYDRATION (2) Peripheral vascular disease in diabetes mellitus Current Visit: Yes Status: Acute Code(s): E11.51 - TYPE 2 DIABETES W DIABETIC PERIPHERAL ANGIOPATH W/O GANGRENE (3) Peripheral vascular disease of extremity Current Visit: Yes Status: Acute Code(s): I73.9 - PERIPHERAL VASCULAR DISEASE, UNSPECIFIED (4) Weakness Current Visit: Yes Status: Acute Code(s): R53.1 - WEAKNESS (5) COPD (chronic obstructive pulmonary disease) Current Visit: No Status: Chronic (6) Diabetes mellitus type 2 Current Visit: No Status: Chronic Code(s): E11.9 - TYPE 2 DIABETES MELLITUS WITHOUT COMPLICATIONS
--- NOTE | 2021-02-01 12:39 | XRAY ---
Indication: COPD, nausea, weakness, and diarrhea. Multiple contiguous axial images obtained through the abdomen and pelvis prior to and following 80 cc Isovue 370 contrast as ordered. Comparison: January 27, 2021. CT chest reported separately. Noncontrasted images again demonstrates numerous tiny hepatic/splenic calcified granulomas. No new visceral calcification/calculi. Noncontrasted stomach and bowel loops remain nonobstructed again with minimal sigmoid diverticulosis. Stable nonspecific bilateral perinephric stranding. No free fluid/air. Postcontrast images demonstrates normal visceral enhancement and renal excretion. Remaining liver, gallbladder, pancreas, spleen, adrenal glands, kidneys, ureters, and bladder are unremarkable. Stable moderate scattered vascular calcifications. Again no AAA or pathologic retroperitoneal lymphadenopathy. Osseous structures againosteopenia, degenerative changes throughout the spine, degenerative changes both hips, and minimal scoliosis. Impression: 1. No change compared to CT 5 days ago again demonstrating minimal sigmoid diverticulosis, chronic bony findings, and old granulomatous disease. 2. Remaining CT abdomen/pelvis with and without contrast exam is again negative.
--- NOTE | 2021-02-01 12:40 | XRAY ---
Indication: COPD, nausea, weakness, and diarrhea. Multiple contiguous axial images obtained through the chest prior to and following 80 cc Isovue 370 contrast as ordered. Comparison: December 16, 2018. Lungs again demonstrates mild/moderate bilateral dependent atelectasis more than before. Stable tiny left upper lobe calcified granulomas, tiny superior segment left lower lobe noncalcified granuloma, and minimal right middle lobe peripheral fibrosis/scarring. No suspicious pulmonary mass/nodule, infiltrate, or effusion. Heart is not enlarged again with CABG surgery. Aorta remains mildly arteriosclerotic without aneurysm/dissection. Stable small mediastinal and left perihilar calcified nodes. No pathologic mediastinal/hilar lymphadenopathy. Bony thorax intact again with osteopenia, mild degenerative changes throughout the spine, and sternotomy wires. CT abdomen/pelvis reported separately. Impression: 1. Again bilateral dependent atelectasis, scattered fibrosis/scarring, chronic bony findings, and old granulomatous disease. 2. Remaining CT chest with and without contrast exam is negative.
--- NOTE | 2021-02-01 16:50 | XRAY ---
Indication: Poor circulation. Right below-knee amputation. Two-dimensional sonogram and color Doppler imaging of the major arteries of the left and right leg performed. Comparison: None Examination of the right leg demonstrates mild scattered arteriosclerotic disease in the common femoral and superficial femoral arteries without critical stenosis/obstruction. Popliteal artery widely patent. Arterial waveforms are multiphasic. Examination of the left leg also demonstrate mild scattered arteriosclerotic disease in the common femoral, superficial femoral, popliteal, posterior tibial, and dorsal pedal arteries without critical stenosis/obstruction. Arterial waveforms are multiphasic throughout the left leg. Left brachial pressure is 114. Left ankle pressure is 119. Ankle-brachial index is 1.0, normal. Impression: Mild scattered arteriosclerotic disease bilaterally without critical stenosis/obstruction. Normal left WIN.
[2021-02-02] MEDS: Sodium Chloride 0.9% 1000 ML 1,000 ML IV SCH (03:13)
[2021-02-02 08:04] VITALS: PULSE 66; O2SAT 95
[2021-02-02] MEDS: Flomax 0.4 MG PO SCH (09:23)
[2021-02-02] MEDS: ECOTRIN 81 MG PO SCH (09:23)
[2021-02-02] MEDS: Cymbalta 30 MG Capsule PO SCH (09:23)
[2021-02-02] MEDS: Klor Con 10 MEQ PO SCH (09:23)
[2021-02-02] MEDS: DELTASONE 5 MG PO SCH (09:23)
[2021-02-02] MEDS: Coreg 3.125 MG PO SCH (09:23)
[2021-02-02] MEDS: Pepcid 20 MG VIAL IV SCH (09:24)
[2021-02-02] MEDS: PLAVIX 75 MG Tablet PO SCH (09:24)
[2021-02-02] MEDS: LASIX 20 MG PO SCH (09:24)
[2021-02-02] MEDS: NEURONTIN 300 MG PO SCH ×2 (09:24→13:35)
[2021-02-02] MEDS: Protonix 40MG Tablet PO SCH (09:25)
[2021-02-02] MEDS: ZOCOR 20MG PO SCH (09:25)
[2021-02-02] MEDS: zyPREXA 5MG TABLET PO SCH (09:25)
[2021-02-02] MEDS: Proscar 5 MG PO SCH (09:25)
[2021-02-02] MEDS: Vitamin C 500 MG PO SCH (09:28)
[2021-02-02] MEDS: Lantus Insulin SQ SCH (09:32)
[2021-02-02 11:58] VITALS: BP 160/80
--- NOTE | 2021-02-02 20:04 | PCM.DS ---
Discharge Summary Date of Admission: 01/31/21 16:02 Admitting Physician: ОЛЬГА COOPER Primary Care Provider: ОЛЬГА COOPER Allergies Allergies diazepam [From Valium] Adverse Reaction (Intermediate, Verified 01/27/21 14:01) Hallucinations Hospital Summary - Hospital Course Hospital Course: Chief Complaint Diagnosis dehydration,diarrhea for 3 weeks, failed out patient treatment Allergies Allergy/AdvReac Type Severity Reaction Status Date / Time diazepam [From Valium] AdvReac Intermediate Hallucinati Verified 01/27/21 14:01 ons Vital Signs (Last 24 hours) Temp Pulse Resp BP Pulse Ox 02/02/21 11:57 97.4 F 66 14 160/80 95 02/02/21 08:00 97.4 F 66 16 150/75 95 02/02/21 04:00 98.2 F 63 18 138/68 94 L 02/01/21 23:59 98.5 F 63 20 141/73 94 L Home Medications Medication Instructions Recorded Confirmed Last Taken Type Ascorbic Acid 500 mg [Vitamin C 1,000 mg PO DAILY 01/31/21 01/31/21 01/31/21 History 500 MG] Current Medications Discontinued Medications Generic Name Dose Route Start Last Admin Trade Name Freq PRN Reason Stop Dose Admin Ascorbic Acid 1,000 mg 02/01/21 10:00 02/02/21 09:28 Vitamin C 500 Mg PO 03/03/21 09:59 1,000 mg DAILY ETHAN Administration Aspirin 81 mg 02/01/21 10:00 02/02/21 09:23 Ecotrin 81 Mg PO 03/03/21 09:59 81 mg DAILY ETHAN Administration Carvedilol 3.125 mg 01/31/21 22:00 02/02/21 09:23 Coreg 3.125 Mg PO 03/02/21 21:59 3.125 mg BID ETHAN Administration Clopidogrel Bisulfate 75 mg 02/01/21 10:00 02/02/21 09:24 Plavix 75 Mg Tablet PO 03/03/21 09:59 75 mg DAILY ETHAN Administration Duloxetine HCl 30 mg 01/31/21 22:00 02/02/21 09:23 Cymbalta 30 Mg Capsule PO 03/02/21 21:59 30 mg BID ETHAN Administration Famotidine 20 mg 01/31/21 22:00 02/02/21 09:24 Pepcid 20 Mg Vial IV 03/02/21 21:59 20 mg BID ETHAN Administration Finasteride 5 mg 02/01/21 10:00 02/02/21 09:25 Proscar 5 Mg PO 03/03/21 09:59 5 mg DAILY ETHAN Administration Furosemide 20 mg 01/31/21 18:00 02/02/21 09:24 Lasix 20 Mg PO 03/02/21 17:59 20 mg BID DIURETIC ETHAN Administration Gabapentin 600 mg 01/31/21 18:00 02/02/21 13:35 Neurontin 300 Mg PO 03/02/21 17:59 600 mg QID ETHAN Administration Sodium Chloride 1,000 mls @ 120 mls/hr 01/31/21 16:30 02/02/21 03:13 Sodium Chloride 0.9% 1000 Ml IV 03/02/21 16:29 120 mls/hr .Q8H20M ETHAN Administration Insulin Glargine 40 unit 02/01/21 10:00 02/02/21 09:32 Lantus Insulin SQ 03/03/21 09:59 40 unit DAILY ETHAN Administration Insulin Human Lispro 0 unit 01/31/21 17:30 02/01/21 17:20 Humalog SQ 03/02/21 17:29 2 unit UD PRN Administration Miscellaneous Information 1 each 01/31/21 17:30 Medication Intervention PO 03/02/21 17:29 .RN TO CHECK ON ETHAN Miscellaneous Information 1 each 01/31/21 17:30 Medication Intervention PO 03/02/21 17:29 .RN TO CHECK ON ETHAN Olanzapine 5 mg 01/31/21 22:00 02/02/21 09:25 Zyprexa 5mg Tablet PO 03/02/21 21:59 5 mg BID ETHAN Administration Ondansetron HCl 4 mg 01/31/21 16:22 01/31/21 17:31 Zofran 4 Mg/2 Ml Vial IV 03/02/21 16:21 4 mg Q6H PRN PRN Administration NAUSEA/VOMITING Pantoprazole Sodium 40 mg 01/31/21 17:00 01/31/21 17:28 Protonix 40 Mg Iv IV 03/02/21 16:59 Not Given DAILY ETHAN Pantoprazole Sodium 40 mg 02/01/21 10:00 02/02/21 09:25 Protonix 40mg Tablet PO 03/03/21 09:59 40 mg QAM ETHAN Administration Potassium Chloride 10 meq 01/31/21 22:00 02/02/21 09:23 Klor Con 10 Meq PO 03/02/21 21:59 10 meq BID ETHAN Administration Prednisone 5 mg 02/01/21 10:00 02/02/21 09:23 Deltasone 5 Mg PO 03/03/21 09:59 5 mg DAILY ETHAN Administration Simvastatin 20 mg 02/01/21 10:00 02/02/21 09:25 Zocor 20mg PO 03/03/21 09:59 20 mg DAILY ETHAN Administration Tamsulosin HCl 0.4 mg 02/01/21 10:00 02/02/21 09:23 Flomax 0.4 Mg PO 03/03/21 09:59 0.4 mg DAILY ETHAN Administration Intake & Output (Last 24 hours) 01/31/21 02/01/21 02/02/21 02/03/21 11:59 11:59 11:59 11:59 Intake Total 1802 4593 120 Output Total 200 2550 Balance 1602 2043 120 Weight 85.5 kg Laboratory Results (Last 24 hours) 02/02/21 02/02/21 02/01/21 11:35 07:18 23:54 POC Glucometer 170 H 118 H 169 H 02/01/21 21:17 POC Glucometer 180 H Orders (Last 24 hours) Category Date Time Status Discharge Planning,Consult Routine Discharge 02/02/21 Active Discharge Routine Discharge 02/02/21 Ordered POCT GLUCOSE Stat Lab 02/01/21 21:17 Completed POCT GLUCOSE Stat Lab 02/01/21 23:54 Completed POCT GLUCOSE Stat Lab 02/02/21 07:18 Completed POCT GLUCOSE Stat Lab 02/02/21 11:35 Completed Patient Care Notes (Last 24 hours) 02/02/21 16:45 Case Management Note by Harmony Goff HAS ACCEPTED AND WILL BE IN TO SEE HIM ON SATURDAY OR SATURDAY. THEY WILL CONTACT HIM AND INSTRUCT HIM TO CALL THEM IF HE NEEDS ASSISTANCE BEFORE THEN Initialized on 02/02/21 16:45 - END OF NOTE 02/02/21 12:41 Case Management Note by Harmony Goff PATIENT CONTINUES TO DENY ANY NEW NEEDS REGARDING DC AT THIS TIME. [facility] REFERRAL WAS SENT IN FOR A SECURITY DIRECTOR. DR COOPER REQUESTED [facility] BE SET UP. PATIENT AGREEABLE, WAS GIVEN PROVIDER OPTIONS AND CHOSE [facility]. REFERRAL FAXED AT THIS TIME Initialized on 02/02/21 12:41 - END OF NOTE - Vitals & Intake/Output Vital Signs: Vital Signs Temperature 97.4 F 02/02/21 11:57 Pulse Rate 66 02/02/21 11:57 Respiratory Rate 14 02/02/21 11:57 Blood Pressure 160/80 02/02/21 11:57 O2 Sat by Pulse Oximetry 95 02/02/21 11:57 Intake & Output: Intake & Output 01/31/21 02/01/21 02/02/21 02/03/21 11:59 11:59 11:59 11:59 Intake Total 1802 4593 120 Output Total 200 2550 Balance 1602 2043 120 Weight 85.5 kg - Lab Result Diagrams: 01/31/21 16:28 01/31/21 16:28 Lab Results-Last 24 Hrs: Lab Results-Last 24 Hours 02/01/21 02/01/21 02/02/21 Range/Units 21:17 23:54 07:18 POC Glucometer 180 H 169 H 118 H (74 to 106) mg/dL 02/02/21 Range/Units 11:35 POC Glucometer 170 H (74 to 106) mg/dL Micro Results-Entire Visit: Accuchecks Date 02/02/21 Date 02/02/21 Date 02/01/21 Time 21:59 - Radiology Exams Ordered Rad Exams-Entire Visit: Radiology Procedures Category Date Time Status ABDOMEN AND PELVIS W&WO CONTRA [CT] Stat Exams 02/01/21 11:16 Completed ARTERIAL BILAT LOWER EXTREMITY [US] Urgent Exams 02/01/21 16:32 Completed CHEST 1 VIEW (PORTABLE) Routine Exams 01/31/21 19:30 Completed CHEST W/WO CONTRAST [CT] Stat Exams 02/01/21 11:16 Completed - Procedures and Test Procedures and Tests throughout Hospitalization: Therapy Orders & Screens 01/31/21 16:25 EKG ROUTINE Comment: Diagnosis: dehydration,diarrhea Discharge Exam General Appearance: no apparent distress, alert Neurologic Exam: alert, oriented x 3, cooperative, normal mood/affect, nml cerebellar function, sensation nml, No motor deficits Eye Exam: PERRL, EOMI, eyes nml inspection Ears, Nose, Throat Exam: normal ENT inspection, pharynx normal, moist mucous membranes Neck Exam: normal inspection, non-tender, supple, full range of motion Respiratory Exam: normal breath sounds, lungs clear, No respiratory distress Cardiovascular Exam: regular rate/rhythm, normal heart sounds Gastrointestinal/Abdomen Exam: soft, No tenderness, No mass Male Genitalia Exam: deferred Rectal Exam: deferred Back Exam: normal inspection, normal range of motion, No CVA tenderness, No vertebral tenderness Extremity Exam: normal inspection, normal range of motion Skin Exam: normal color, warm, dry Final Diagnosis/Problem List - Final Discharge Diagnosis/Problem (1) Dehydration Status: Resolved Code(s): E86.0 - DEHYDRATION (2) Peripheral vascular disease in diabetes mellitus Status: Chronic Priority: High Code(s): E11.51 - TYPE 2 DIABETES W DIABETIC PERIPHERAL ANGIOPATH W/O GANGRENE (3) Peripheral vascular disease of extremity Status: Acute Code(s): I73.9 - PERIPHERAL VASCULAR DISEASE, UNSPECIFIED (4) Weakness Status: Resolved Code(s): R53.1 - WEAKNESS (5) COPD (chronic obstructive pulmonary disease) Status: Chronic (6) Diabetes mellitus type 2 Status: Chronic Code(s): E11.9 - TYPE 2 DIABETES MELLITUS WITHOUT CO MPLICATIONS - Discharge Discharge Date: 02/02/21 Disposition: Home, Self-Care Condition: Stable Prescriptions: Continue Niacin 500 mg [Niaspan 500 mg] 500 mg PO HS Tamsulosin HCl 0.4 mg [Flomax 0.4 MG] 0.4 mg PO DAILY Aspirin EC 81 mg [Ecotrin 81 mg] 81 mg PO DAILY Clopidogrel Bisulfate 75 mg [PLAVIX 75 MG Tablet] 75 mg PO DAILY Carvedilol 3.125 mg [Coreg 3.125 MG] 3.125 mg PO BID Furosemide 20 mg [Lasix 20 mg] 20 mg PO BID Potassium Chloride 8 meq PO BID Prednisone 5 mg [Deltasone 5 mg] 5 mg PO DAILY PANTOPRAZOLE 40 mg Tablet [Protonix 40MG Tablet] 40 mg PO QAM Gabapentin 400 mg [Neurontin 400 MG] 600 mg PO QID Finasteride 5 mg [Proscar 5 MG] 5 mg PO DAILY Insulin Lispro [Humalog Kwikpen U-100] 1 unit SQ UD Duloxetine HCl 30 mg [Cymbalta 30 MG Capsule] 30 mg PO BID #60 cap Naltrexone HCl 50 mg PO BID #60 tablet Olanzapine 5 mg [zyPREXA 5MG TABLET] 5 mg PO BID #60 tab Insulin Glargine,Hum.rec.anlog [Lantus] 40 unit SQ DAILY Rosuvastatin Calcium 10 mg PO DAILY Ascorbic Acid 500 mg [Vitamin C 500 MG] 1,000 mg PO DAILY Instructions: Dehydration, Adult (DC) Additional Instructions: REFERRAL WAS SENT TO AREA REGARDING A SECURITY DIRECTOR- THEY SHOULD BE CONTACTING YOU, THEIR PHONE NUMBER IS [phone] REFERRAL WAS SENT TO [facility]. THEY WILL MAKE CONTACT WITH YOU TO ARRANGE A VISIT- THEIR PHONE NUMBER IS [phone] MAKE SURE YOU DRINK ENOUGH FLUIDS DURING THE DAY. ALSO, PROTEIN DRINK SUPPLEMENTS WILL HELP WITH STRENGTH. Follow up with: ОЛЬГА COOPER MD [Primary Care Provider] - 02/09/21 11:15 am (in [place]) Forms: Discharge Instructions
== END 2021-02-02 14:05 | disposition home health service (06) ==
LOC: MED SURG 16:02
PROVIDERS: ADMIT General Practice; ATTEND General Practice
DX: E86.0 Dehydration (principal); E11.51 Type 2 diabetes mellitus with diabetic peripheral angiopathy without gangrene; R53.1 Weakness; J44.9 Chronic obstructive pulmonary disease, unspecified; Z79.899 Other long term (current) drug therapy; Z79.01 Long term (current) use of anticoagulants; R19.7 Diarrhea, unspecified; R53.83 Other fatigue; I73.9 Peripheral vascular disease, unspecified; Z20.828 Contact with and (suspected) exposure to other viral communicable diseases
CPT/HCPCS: 36415; 36600; 71045; 71270; 74178; 80053; 81001; 82375; 82803; 82947; 83036; 84484; 85027; 93005; 93925; G0378; U0003; J1817; J2405; A9270-GY

== ENCOUNTER 2021-06-17 12:44 | Emergency (ER) | payer MEDICARE ==
[2021-06-17] MEDS ORDERED: ARZOL Silver Nitrate Applicator TP ONE (13:01)
[2021-06-17] MEDS ORDERED: XYLOCAINE 1%/Epi 1:100000 MDV 20 ML ONE (13:02)
[2021-06-17] MEDS ORDERED: Adacel Vial IM ONE (13:30)
[2021-06-17] MEDS: Adacel Vial IM ONE (13:33)
--- NOTE | 2021-06-17 13:36 | ERPHSYRPT ---
- History of Present Illness Time Seen by Provider: 06/17/21 12:54 Source: patient Exam Limitations: no limitations Patient Subjective Stated Complaint: laceration to L larson Triage Nursing Assessment: pt to ED c/o laceration to LLE. denies pain at this time. is on blood thinners. noted 12 cm laceration to anterior LLE that is bleeding on arrival. pressure applied and wound cleaned. pt states he fell at home and got leg caught between bed and his motorized WC and the foot plate cut his leg. Physician History: 76 years old male with history of diabetes mellitus with right below-knee amputation, hypertension, hyperlipidemia, coronary artery disease presented in the ER with chief complaint of left lower extremity laceration after patient tried to get up and fell with his leg got caught on the wheelchair causing a superficial laceration left lower leg. There was bleeding initially but improved on applying pressure. There is slough lose on presentation. Patient denies minimal dull aching pain. No bony tenderness. Did not hit her leg against the floor. Unsure about tetanus status. No injury anywhere else. Timing/Duration: hour(s) (0.5), sudden Quality: burning Severity: mild Location: extremities Associated Symptoms: denies symptoms Allergies/Adverse Reactions: diazepam [From Valium] Adverse Reaction (Intermediate, Verified 06/17/21 13:01) Hallucinations Home Medications: Aspirin EC 81 mg [Ecotrin 81 mg] 81 mg PO DAILY 01/13/13 [History] Carvedilol 3.125 mg [Coreg 3.125 MG] 3.125 mg PO BID 01/13/13 [History] Clopidogrel Bisulfate 75 mg [PLAVIX 75 MG Tablet] 75 mg PO DAILY 01/13/13 [History] Niacin 500 mg [Niaspan 500 mg] 500 mg PO HS 01/13/13 [History] Tamsulosin HCl 0.4 mg [Flomax 0.4 MG] 0.4 mg PO DAILY 01/13/13 [History] Furosemide 20 mg [Lasix 20 mg] 20 mg PO BID 05/09/16 [History] Finasteride 5 mg [Proscar 5 MG] 5 mg PO DAILY 10/26/16 [History] Gabapentin 400 mg [Neurontin 400 MG] 600 mg PO QID 10/26/16 [History] PANTOPRAZOLE 40 mg Tablet [Protonix 40MG Tablet] 40 mg PO QAM 10/26/16 [History] Potassium Chloride 8 meq PO BID 10/26/16 [History] Prednisone 5 mg [Deltasone 5 mg] 5 mg PO DAILY 10/26/16 [History] Insulin Lispro [Humalog Kwikpen U-100] 1 unit SQ UD 12/16/18 [History] Insulin Glargine,Hum.rec.anlog [Lantus] 40 unit SQ DAILY 01/27/21 [History] Rosuvastatin Calcium 10 mg PO DAILY 01/27/21 [History] Ascorbic Acid 500 mg [Vitamin C 500 MG] 1,000 mg PO DAILY 01/31/21 [History] Hx Tetanus, Diphtheria Vaccination/Date Given: No Hx Influenza Vaccination/Date Given: Yes Hx Pneumococcal Vaccination/Date Given: No Immunizations Up to Date: No Travel Risk - International Travel Have you traveled outside of the country in past 3 weeks: No - Coronavirus Screening Are you exhibiting any of the following symptoms?: No Close contact with a COVID-19 positive Pt in past 14-21 Days: No - Vaccine Status Have you recieved a Covid-19 vaccination: Yes Licensing Specialist: Moderna - Vaccination Dates Date of 2cond Vaccination (if applicable): 09/22/20 - Review of Systems Constitutional: No Symptoms Eyes: No Symptoms Respiratory: No Symptoms Cardiac: No Symptoms Abdominal/Gastrointestinal: No Symptoms Genitourinary Symptoms: No Symptoms Musculoskeletal: Injury Skin: Skin Lesions Neurological: No Symptoms Psychological: No Symptoms Endocrine: No Symptoms Hematologic/Lymphatic: No Symptoms Immunological/Allergic: No Symptoms - Past Medical History Pertinent Past Medical History: Yes Neurological History: Peripheral Neuropathy ENT History: No Pertinent History Cardiac History: Other Respiratory History: COPD Endocrine Medical History: Diabetes Type II Musculoskeletal History: Osteoarthritis, Other GI Medical History: GERD History: Renal Disease Psycho-Social History: Anxiety, Depression Male Reproductive Disorders: Prostate Problems Other Medical History: HAD INFANTILE PARALYSIS; 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 quad bypass - Social History Smoking Status: Heavy tobacco smoker How long have you smoked: years Exposure to second hand smoke: Yes Alcohol Use: Socially Drug Use: none Patient Lives Alone: No Significant Family History: heart disease - Nursing Vital Signs Nursing Vital Signs: Initial Vital Signs Temperature 96.9 F 06/17/21 12:51 Pulse Rate 60 06/17/21 12:51 Respiratory Rate 18 06/17/21 12:51 Blood Pressure 123/81 06/17/21 12:51 O2 Sat by Pulse Oximetry 95 06/17/21 12:51 Pain Scale Pain Intensity 0 - Physical Exam General Appearance: no apparent distress, alert Eye Exam: PERRL/EOMI Ears, Nose, Throat Exam: normal ENT inspection Neck Exam: normal inspection, full range of motion Respiratory Exam: normal breath sounds, lungs clear Cardiovascular Exam: regular rate/rhythm, normal heart sounds Extremity Exam: other (12 cm laceration left lower leg on the anterior aspect just lateral to the larson longitudinal. Minimal oozing. No bony tenderness.) Skin Exam: normal color SpO2 Interpretation: normal SpO2: 95 O2 Delivery: Room Air Procedures - Laceration/Wound Repair Left Lower Calf Time of Procedure: 13:14 Wound Location: Left Wound Length (cm): 12 Wound's Depth, Shape: superficial Wound Explored: clean Irrigated: Yes Hibiclens Prep: Yes Anesthesia: 1% lidocaine w/ Epi Volume Anesthetic (ccs): 6 Wound Repaired With: sutures Suture Size/Type: 3-0 Number of Sutures: 14 Layer Closure?: No Sterile Dressing Applied?: Yes Ordered Tests: Medication Summary Discontinued Medications Generic Name Dose Route Start Last Admin Trade Name Freq PRN Reason Stop Dose Admin Diphtheria/Tetanus/Acell Pertussis 0.5 ml 06/17/21 13:29 Tdap --Diph,Pertuss(Acell),Tet Vac/Pf 0.5 Ml Vial IM 06/17/21 13:30 .ONCE ONE Lidocaine/Epinephrine Confirm 06/17/21 13:02 Lidocaine Hcl/Epinephrine 1% 20 Ml Administered 06/17/21 13:03 Dose 1 ml .ROUTE .STK-MED ONE Silver Nitrate Confirm 06/17/21 13:01 Silver Nitrate 1 Pkt Each Administered 06/17/21 13:02 Dose 1 pkt TP .STK-MED ONE - Progress Progress: improved Progress Note: 06/17/21 13:35 Tetanus is updated. Laceration is repaired. Does have superficial skin involvement and recommended outpatient follow-up early next week to see for wound dehiscence, skin ischemia etc. Recommended Tylenol as needed. Outpatient follow-up. Discussed signs symptoms of worsening needing return to ER which she seems understanding. Stable for discharge. Counseled pt/family regarding: diagnosis, need for follow-up - Departure Departure Disposition: Home Clinical Impression: Left lower extremity laceration Laceration of left lower extremity Qualifiers: Encounter type: initial encounter Qualified Code(s): S81.812A - Laceration without foreign body, left lower leg, initial encounter Condition: Stable Critical Care Time: No Referrals: ОЛЬГА COOPER MD [Primary Care Provider] - Follow Up with PCP/3 days Instructions: Laceration Repair With Stitches (DC) Additional Instructions: Take Tylenol as needed. Keep it elevated and clean. Apply intermittent ice. Avoid exertional activities. Follow-up with your primary care for reevaluation. Return to ER for worsening pain, swelling, discharge or skin discoloration etc.
[2021-06-19 17:06] VITALS: BP 141/76; PULSE 84; O2SAT 97
== END 2021-06-17 13:49 | disposition home or self-care (01) ==
LOC: ED 12:44
DX: S81.812A Laceration without foreign body, left lower leg, initial encounter (principal); W01.198A Fall on same level from slipping, tripping and stumbling with subsequent striking against other object, initial encounter; Z79.01 Long term (current) use of anticoagulants; E11.42 Type 2 diabetes mellitus with diabetic polyneuropathy; Z79.4 Long term (current) use of insulin; I10 Essential (primary) hypertension; E78.5 Hyperlipidemia, unspecified; Z72.0 Tobacco use
CPT/HCPCS: 12004; 90471; 90715; 99283; A9270-GY

== ENCOUNTER 2021-11-07 04:29 | Emergency (ER) | payer MEDICARE ==
--- NOTE | 2021-11-07 05:00 | ERPHSYRPT ---
- History of Present Illness Time Seen by Provider: 11/07/21 04:50 Source: patient Exam Limitations: no limitations Patient Subjective Stated Complaint: Patient states he has had increased pain to his mid to lower back for the past 7-10 days. Denies any falls or injuries. Triage Nursing Assessment: Patient came back to ED in mobilized w/c. He is alert and oriented and answering questions appropriately. Slight swelling noted to left lower back. Circular skin protrusion noted approx 6 inches above where patient indicates pain is located. Protrusion is approx the size of a half dollar coin. Skin intact to area and patient denies any pain to this area. Physician History: This is a 76-year-old white male daily smoker of cigarettes who is a patient of Dr. Cooper who presents to the emergency department via wheelchair with a 10- day history of worsening low back pain. Patient has chronic back pain but in the last 10 days it has been getting worse. Patient does take 5 mg of prednisone daily as well as gabapentin. Patient has a right below the knee amputation. Patient is chronic diabetic, has hypertension, peripheral neuropathy, COPD, gastroesophageal reflux disease, renal disease, elevated cholesterol, peripheral vascular disease and coronary artery disease (CABG). He has not seen his pain specialist in the last 6 months as he was fired from the pain specialist office. Patient has been weaned off narcotics by his primary care physician. He has not had any significant or severe low back pain until the last 10 days. He did not suffer any acute traumatic injury or fall. He has no urinary tract infection symptoms. Timing/Duration: day(s) (7 to 10 days) Method of Injury: other (no injury) Quality: sharp, stabbing Back Pain Location: lumbar spine Severity of Pain-Max: moderate Severity of Pain-Current: moderate Modifying Factors: Improves With: movement Associated Symptoms: sensory/motor loss (Patient has chronic peripheral neuropathy), lower back pain, No urinary incontinence, No loss of bowel control Previous symptoms: no prior history Allergies/Adverse Reactions: diazepam [From Valium] Adverse Reaction (Intermediate, Verified 11/07/21 04:35) Hallucinations Home Medications: Aspirin EC 81 mg [Ecotrin 81 mg] 81 mg PO DAILY 01/13/13 [History] Carvedilol 3.125 mg [Coreg 3.125 MG] 3.125 mg PO BID 01/13/13 [History] Clopidogrel Bisulfate 75 mg [PLAVIX 75 MG Tablet] 75 mg PO DAILY 01/13/13 [History] Niacin 500 mg [Niaspan 500 mg] 500 mg PO HS 01/13/13 [History] Tamsulosin HCl 0.4 mg [Flomax 0.4 MG] 0.4 mg PO DAILY 01/13/13 [History] Furosemide 20 mg [Lasix 20 mg] 20 mg PO BID 05/09/16 [History] Finasteride 5 mg [Proscar 5 MG] 5 mg PO DAILY 10/26/16 [History] Gabapentin 400 mg [Neurontin 400 MG] 600 mg PO QID 10/26/16 [History] PANTOPRAZOLE 40 mg Tablet [Protonix 40MG Tablet] 40 mg PO QAM 10/26/16 [History] Potassium Chloride 8 meq PO BID 10/26/16 [History] Prednisone 5 mg [Deltasone 5 mg] 5 mg PO DAILY 10/26/16 [History] Insulin Lispro [Humalog Kwikpen U-100] 1 unit SQ UD 12/16/18 [History] Insulin Glargine,Hum.rec.anlog [Lantus] 40 unit SQ DAILY 01/27/21 [History] Rosuvastatin Calcium 10 mg PO DAILY 01/27/21 [History] Ascorbic Acid 500 mg [Vitamin C 500 MG] 1,000 mg PO DAILY 01/31/21 [History] Hx Tetanus, Diphtheria Vaccination/Date Given: Yes Hx Influenza Vaccination/Date Given: Yes Hx Pneumococcal Vaccination/Date Given: No Immunizations Up to Date: Yes Travel Risk - International Travel Have you traveled outside of the country in past 3 weeks: No - Coronavirus Screening Are you exhibiting any of the following symptoms?: No - Vaccine Status Have you recieved a Covid-19 vaccination: Yes Diesel Inspector: Moderna - Vaccination Dates Date of 2cond Vaccination (if applicable): 09/22/20 - Review of Systems Constitutional: No Symptoms Eyes: No Symptoms Ears, Nose, & Throat: No Symptoms Respiratory: No Symptoms Cardiac: No Symptoms Abdominal/Gastrointestinal: No Symptoms Genitourinary Symptoms: No Symptoms Musculoskeletal: Back Pain, No Fall, No Injury Skin: Other (Subcutaneous cyst right side back thoracic spine level) Neurological: No Symptoms Psychological: No Symptoms Endocrine: No Symptoms Hematologic/Lymphatic: No Symptoms Immunological/Allergic: No Symptoms All Other Systems: Reviewed and Negative - Past Medical History Pertinent Past Medical History: Yes Neurological History: Peripheral Neuropathy ENT History: No Pertinent History Cardiac History: Hypertension, Myocardial Infarction ([place]), Other Respiratory History: COPD Endocrine Medical History: Diabetes Type II Musculoskeletal History: Osteoarthritis, Other GI Medical History: GERD History: Renal Disease Psycho-Social History: Anxiety, Depression Male Reproductive Disorders: Prostate Problems Other Medical History: HAD INFANTILE PARALYSIS; BPH - Past Surgical History Past Surgical History: Yes Neuro Surgical History: No Pertinent History Cardiac: CABG Respiratory: No Pertinent History Gastrointestinal: No Pertinent History Genitourinary: No Pertinent History Musculoskeletal: Orthopedic Surgery Male Surgical History: No Pertinent History Other Surgical History: amputation below knee R. quad bypass - Social History Smoking Status: Current every day smoker How long have you smoked: 59 years Exposure to second hand smoke: No Alcohol Use: Socially Drug Use: none Patient Lives Alone: No (Friend) Significant Family History: heart disease - Nursing Vital Signs Nursing Vital Signs: Initial Vital Signs Temperature 96.8 F 11/07/21 04:36 Pulse Rate 75 11/07/21 04:36 Respiratory Rate 20 11/07/21 04:36 Blood Pressure 130/85 11/07/21 04:36 O2 Sat by Pulse Oximetry 96 11/07/21 04:36 Pain Scale Pain Intensity [MID LOWER BACK 10 ] Pain Intensity 10 - Physical Exam General Appearance: no apparent distress, alert, anxiety Eye Exam: PERRL/EOMI Ears, Nose, Throat Exam: normal ENT inspection, moist mucous membranes Neck Exam: normal inspection, non-tender, supple, full range of motion Respiratory Exam: No chest tenderness, No respiratory distress, No airway intact Gastrointestinal Exam: No tenderness Rectal Exam: not done Back Exam: normal inspection, vertebral tenderness (Lumbar level), decreased range of motion, No CVA tenderness Extremity Exam: normal range of motion, pelvis stable, other (Right below the knee amputation) Neurologic Exam: alert, oriented x 3, cooperative, 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, normal mood/affect Skin Exam: normal color, warm, dry Lymphatic Exam: No adenopathy SpO2 Interpretation: normal SpO2: 96 O2 Delivery: Room Air - Course Nursing assessment & vital signs reviewed: Yes Ordered Tests: Medication Summary Generic Name Dose Route Start Last Admin Trade Name Landry PRN Reason Stop Dose Admin Methylprednisolone Sodium 0 mg 11/07/21 05:16 Succinate 125 mg/ Sterile IM 11/07/21 05:17 Water 2 ml STAT ONE Hydromorphone HCl 0.5 mg 11/07/21 05:16 Hydromorphone 1 Mg/1ml Inj 1 Mg/Ml Syringe IM 11/07/21 05:17 STAT ONE Ondansetron HCl 4 mg 11/07/21 05:14 Zofran 4 Mg/Udtablet Orally Disintegrating PO 11/07/21 05:15 STAT ONE Orphenadrine Citrate 60 mg 11/07/21 05:14 Orphenadrine Citrate 60 Mg/2 Ml Amp IM 11/07/21 05:15 STAT ONE - Progress Progress: improved, pain not gone completely Progress Note: 11/07/21 05:28 Patient states that he will take narcotics at this visit and a couple more days if necessary to help relieve his current pain. Counseled pt/family regarding: diagnosis, need for follow-up - Departure Departure Disposition: Home Clinical Impression: Acute exacerbation of chronic low back pain Condition: Stable Critical Care Time: No Referrals: ОЛЬГА COOPER MD [Primary Care Provider] - Follow up/PCP as directed Additional Instructions: Call your primary care doctor's office today to make arranges for follow-up appointment for further evaluation management of your low back pain. For the next 3 to 4 days monitor your blood sugar levels closely. Prescriptions: Prednisone 10 mg [Deltasone 10 mg] 10 mg PO TID #12 tablet Hydrocodone/APAP 5/325 [Rutherford 5/325 mg] 1 each PO BID PRN PRN #4 tablet MDD 2 PRN Reason: Pain
[2021-11-07] MEDS ORDERED: ZOFRAN ODT 4 MG PO ONE (05:14)
[2021-11-07] MEDS ORDERED: Norflex 60 MG/2 ML IM ONE (05:14)
[2021-11-07] MEDS ORDERED: Hydromorphone 1 mg/ml Injection IM ONE (05:16)
[2021-11-07] MEDS ORDERED: solu-MEDROL 125 MG, Sterile H2O 10 ml 2 ML IM ONE ×2 (05:16)
[2021-11-07] MEDS ORDERED: Sterile H2O 10 ml IJ ONE (05:22)
[2021-11-07] MEDS ORDERED: Norflex 60 MG/2 ML ONE (05:22)
[2021-11-07] MEDS ORDERED: ZOFRAN ODT 4 MG ONE (05:22)
[2021-11-07] MEDS ORDERED: solu-MEDROL ONE (05:23)
[2021-11-07] MEDS ORDERED: Hydromorphone 1 mg/ml Injection ONE (05:23)
[2021-11-07 05:42] VITALS: O2SAT 95
[2021-11-07 06:21] VITALS: BP 98/64; PULSE 80
== END 2021-11-07 06:23 | disposition home or self-care (01) ==
LOC: ED 04:29
DX: G89.29 Other chronic pain (principal); M54.50 Low back pain, unspecified; I10 Essential (primary) hypertension; E11.42 Type 2 diabetes mellitus with diabetic polyneuropathy; J44.9 Chronic obstructive pulmonary disease, unspecified; Z72.0 Tobacco use; Z79.4 Long term (current) use of insulin; Z79.01 Long term (current) use of anticoagulants; Z79.52 Long term (current) use of systemic steroids; Z79.891 Long term (current) use of opiate analgesic; Z79.899 Other long term (current) drug therapy
CPT/HCPCS: 96372; 99284; J1170; J2360; J2930; Q0162

== ENCOUNTER 2021-12-22 14:49 | Emergency (ER) | payer MEDICARE ==
[2021-12-22 15:12] VITALS: BP 107/81; PULSE 90; O2SAT 97
--- NOTE | 2021-12-22 15:40 | XRAY ---
Indication: General neck pain. No known injury. Multiple contiguous axial images obtained through the cervical spine. Sagittal and coronal reformatted images obtained. Comparison: None. There is a cervical radiograph July 31, 2016. Axial images negative for acute fracture, suspicious bony lesions, or spinal canal stenosis. Mild atlantoaxial degenerative arthropathy, minimal C3-C7 degenerative endplate spurring, and right C3-C4 foraminal narrowing due to uncovertebral spurring. Sagittal and coronal reformatted images demonstrates normal alignment with vertebral body height/cystic spaces maintained. No acute compression fracture, subluxation, or jumped facet. Normal appearing craniocervical junction. Visualized noncontrasted soft tissues demonstrates mild bilateral carotid calcifications. Lung apices and base of brain unremarkable. Impression: 1. Multilevel degenerative changes as detailed. 2. Remaining CT cervical spine is negative.
--- NOTE | 2021-12-22 15:58 | ERPHSYRPT ---
- History of Present Illness Time Seen by Provider: 12/22/21 15:05 Source: patient Exam Limitations: no limitations Patient Subjective Stated Complaint: Pt states that his neck has been hurting for approx 4-5 days and has been getting progressively worse each day, denies a ny injury Triage Nursing Assessment: Pt brought to the ER by a family member, martínez brewster, rates pain as 9/10 and states that it is severe, denies any injury, states that the pain wakes him at night, pain with palapatation, pain with movement from right to left but is more severe up and down, denies any other issues at this time Physician History: Patient is a 76-year-old white male who is confined to a wheelchair presents with a complaint of the onset of severe neck pain primarily right-sided which she rates a 9 of 10. The pain is worse with flexion or extension then with rotation. Pain has been present for 2 days. He denies any trauma. Timing/Duration: yesterday Back Pain Location: C-spine Severity of Pain-Max: severe Severity of Pain-Current: severe Modifying Factors: Improves With: movement Associated Symptoms: denies symptoms Allergies/Adverse Reactions: diazepam [From Valium] Adverse Reaction (Intermediate, Verified 12/22/21 15:12) Hallucinations Home Medications: Aspirin EC 81 mg [Ecotrin 81 mg] 81 mg PO DAILY 01/13/13 [History] Carvedilol 3.125 mg [Coreg 3.125 MG] 3.125 mg PO BID 01/13/13 [History] Clopidogrel Bisulfate [PLAVIX Tablet] 75 mg PO DAILY 01/13/13 [History] Niacin 500 mg [Niaspan 500 mg] 500 mg PO HS 01/13/13 [History] Tamsulosin HCl 0.4 mg [Flomax 0.4 MG] 0.4 mg PO DAILY 01/13/13 [History] Furosemide 20 mg [Lasix 20 mg] 20 mg PO BID 05/09/16 [History] Finasteride 5 mg [Proscar 5 MG] 5 mg PO DAILY 10/26/16 [History] Gabapentin [Neurontin ] 600 mg PO QID 10/26/16 [History] PANTOPRAZOLE 40 mg Tablet [Protonix 40MG Tablet] 40 mg PO QAM 10/26/16 [History] Potassium Chloride 8 meq PO BID 10/26/16 [History] Prednisone 5 mg [Deltasone 5 mg] 5 mg PO DAILY 10/26/16 [History] Insulin Lispro [Humalog Kwikpen U-100] 1 unit SQ UD 12/16/18 [History] Insulin Glargine,Hum.rec.anlog [Lantus] 40 unit SQ DAILY 01/27/21 [History] Rosuvastatin Calcium 10 mg PO DAILY 01/27/21 [History] Ascorbic Acid 500 mg [Vitamin C 500 MG] 1,000 mg PO DAILY 01/31/21 [History] Hx Tetanus, Diphtheria Vaccination/Date Given: Yes Hx Influenza Vaccination/Date Given: Yes Hx Pneumococcal Vaccination/Date Given: No Travel Risk - International Travel Have you traveled outside of the country in past 3 weeks: No - Coronavirus Screening Are you exhibiting any of the following symptoms?: No Close contact with a COVID-19 positive Pt in past 14-21 Days: No - Vaccine Status Have you recieved a Covid-19 vaccination: Yes Clean Out Driller: Moderna - Vaccination Dates Date of 2cond Vaccination (if applicable): 09/22/20 - Review of Systems Constitutional: No Fever, No Chills Eyes: No Symptoms Ears, Nose, & Throat: No Symptoms Respiratory: No Cough, No Dyspnea Cardiac: No Chest Pain, No Edema, No Syncope Abdominal/Gastrointestinal: No Abdominal Pain, No Nausea, No Vomiting, No Diarrhea Genitourinary Symptoms: No Dysuria Musculoskeletal: Other (Right lower extremity amputation), No Back Pain, No Neck Pain Skin: No Rash Neurological: No Dizziness, No Focal Weakness, No Sensory Changes Psychological: No Symptoms Endocrine: No Symptoms All Other Systems: Reviewed and Negative - Past Medical History Pertinent Past Medical History: Yes Neurological History: Peripheral Neuropathy ENT History: No Pertinent History Cardiac History: Hypertension, Myocardial Infarction ([place]), Other Respiratory History: COPD Endocrine Medical History: Diabetes Type II Musculoskeletal History: Osteoarthritis, Other GI Medical History: GERD History: Renal Disease Psycho-Social History: Anxiety, Depression Male Reproductive Disorders: Prostate Problems Other Medical History: HAD INFANTILE PARALYSIS; BPH - Past Surgical History Past Surgical History: Yes Neuro Surgical History: No Pertinent History Cardiac: CABG Respiratory: No Pertinent History Gastrointestinal: No Pertinent History Genitourinary: No Pertinent History Musculoskeletal: Orthopedic Surgery Male Surgical History: No Pertinent History Other Surgical History: amputation below knee R. quad bypass - Social History Smoking Status: Current every day smoker How long have you smoked: 59 years Exposure to second hand smoke: Yes Alcohol Use: Socially Drug Use: none Patient Lives Alone: No (Friend) Significant Family History: heart disease - Nursing Vital Signs Nursing Vital Signs: Initial Vital Signs Temperature 96.3 F 12/22/21 15:00 Pulse Rate 90 12/22/21 15:00 Blood Pressure 107/81 12/22/21 15:00 O2 Sat by Pulse Oximetry 97 12/22/21 15:00 Pain Scale Pain Intensity 9 - Physical Exam General Appearance: moderate distress Eye Exam: PERRL/EOMI, eyes nml inspection Ears, Nose, Throat Exam: normal ENT inspection Neck Exam: limited range of motion, midline tenderness Respiratory Exam: normal breath sounds, lungs clear Cardiovascular Exam: regular rate/rhythm, normal heart sounds Gastrointestinal Exam: soft, No tenderness, No mass Extremity Exam: normal range of motion, other (Right lower extremity amputation), No calf tenderness, No pedal edema Neurologic Exam: alert, oriented x 3, cooperative Skin Exam: normal color, warm, dry SpO2 Interpretation: normal SpO2: 97 O2 Delivery: Room Air - Course Nursing assessment & vital signs reviewed: Yes - CT Exams Cervical Spine CT Interpretation: Other (Generalized degenerative changes and foraminal stenosis C3-4 on the right) Ordered Tests: Active Orders 24 hr Category Date Time Status CERVICAL SPINE WO CONTRAST [CT] Stat Exams 12/22/21 15:15 Completed - Progress Progress: unchanged - Departure Departure Disposition: Home Clinical Impression: Cervical radiculopathy Condition: Stable Critical Care Time: No Referrals: ОЛЬГА COOPER MD [Primary Care Provider] - Follow up/PCP as directed Instructions: Generalized Neck Pain (DC) Prescriptions: Hydrocodone/Acetaminophen [Hydrocodone-Acetamin 5-325 mg] 1 tab PO Q6HPRN PRN 3 Days #12 tablet MDD 4 PRN Reason: Pain Prednisone 10 mg [Deltasone 10 mg] 10 mg PO TID #12 tablet
[2021-12-22] MEDS ORDERED: solu-MEDROL 125 MG, Sterile H2O 10 ml 2 ML IM ONE ×2 (16:01)
[2021-12-22] MEDS ORDERED: solu-MEDROL ONE (16:02)
== END 2021-12-22 16:27 | disposition home or self-care (01) ==
LOC: ED 14:49
DX: M54.12 Radiculopathy, cervical region (principal); M54.2 Cervicalgia; Z89.511 Acquired absence of right leg below knee; Z99.3 Dependence on wheelchair; I10 Essential (primary) hypertension; E11.9 Type 2 diabetes mellitus without complications; Z72.0 Tobacco use; Z79.02 Long term (current) use of antithrombotics/antiplatelets; Z79.4 Long term (current) use of insulin; Z79.52 Long term (current) use of systemic steroids; Z79.891 Long term (current) use of opiate analgesic; Z79.899 Other long term (current) drug therapy
CPT/HCPCS: 72125; 96372; 99284; J2930

== ENCOUNTER 2022-01-11 13:48 | Emergency (ER) | payer MEDICARE ==
--- NOTE | 2022-01-11 14:40 | ERPHSYRPT ---
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 He denies LOC/head injury/C,T, or L-spine pain/Abdominal pain/Hip pain. Pt states that pain worse w movement and deep breaths. Occurred: other (4 days ago) Reason for Fall: lost balance Injuries/Pain Location: upper extremity (L hand), chest Loss of Consciousness: no loss of consciousness Quality: sharpness Severity of Pain-Max: moderate Severity of Pain-Current: moderate Modifying Factors: Improves With: movement, other (Deep breaths) Associated Symptoms (Fall): No abdominal pain, No back pain, No confusion, No chest pain, No dizziness, No extremity injury, No headache, No lightheadedness, No muscle spasms, No nausea, No neck pain, No ringing in ears, No seizures, No s hortness of breath, No slurred speech, No trouble walking, No vomiting, No vision changes Allergies/Adverse Reactions: diazepam [From Valium] Adverse Reaction (Intermediate, Verified 01/11/22 14:08) Hallucinations Home Medications: Aspirin EC 81 mg [Ecotrin 81 mg] 81 mg PO DAILY 01/13/13 [History] Carvedilol 3.125 mg [Coreg 3.125 MG] 3.125 mg PO BID 01/13/13 [History] Niacin 500 mg [Niaspan 500 mg] 500 mg PO HS 01/13/13 [History] Tamsulosin HCl 0.4 mg [Flomax 0.4 MG] 0.4 mg PO DAILY 01/13/13 [History] Furosemide 20 mg [Lasix 20 mg] 20 mg PO BID 05/09/16 [History] Finasteride 5 mg [Proscar 5 MG] 5 mg PO DAILY 10/26/16 [History] Gabapentin [Neurontin ] 600 mg PO QID 10/26/16 [History] PANTOPRAZOLE 40 mg Tablet [Protonix 40MG Tablet] 40 mg PO QAM 10/26/16 [History] Potassium Chloride 8 meq PO BID 10/26/16 [History] Prednisone 5 mg [Deltasone 5 mg] 5 mg PO DAILY 10/26/16 [History] Insulin Lispro [Humalog Kwikpen U-100] 1 unit SQ UD 12/16/18 [History] Insulin Glargine,Hum.rec.anlog [Lantus] 40 unit SQ DAILY 01/27/21 [History] Rosuvastatin Calcium 10 mg PO DAILY 01/27/21 [History] Ascorbic Acid 500 mg [Vitamin C 500 MG] 1,000 mg PO DAILY 01/31/21 [History] Hx Tetanus, Diphtheria Vaccination/Date Given: Yes Hx Influenza Vaccination/Date Given: Yes Hx Pneumococcal Vaccination/Date Given: No Immunizations Up to Date: Yes Travel Risk - International Travel Have you traveled outside of the country in past 3 weeks: No - Coronavirus Screening Are you exhibiting any of the following symptoms?: No - Vaccine Status Have you recieved a Covid-19 vaccination: Yes 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 - Vaccination Dates Date of 2cond Vaccination (if applicable): 09/22/20 - Review of Systems Constitutional: No Symptoms Eyes: No Symptoms Ears, Nose, & Throat: No Symptoms Respiratory: No Symptoms Cardiac: No Symptoms, Chest Pain Abdominal/Gastrointestinal: No Symptoms Genitourinary Symptoms: No Symptoms Musculoskeletal: No Symptoms Skin: No Symptoms Neurological: No Symptoms Psychological: No Symptoms Endocrine: No Symptoms Hematologic/Lymphatic: No Symptoms Immunological/Allergic: No Symptoms - Past Medical History Pertinent Past Medical History: Yes Neurological History: Peripheral Neuropathy ENT History: No Pertinent History Cardiac History: Hypertension, Myocardial Infarction ([place]), Other Respiratory History: COPD Endocrine Medical History: Diabetes Type II Musculoskeletal History: Osteoarthritis, Other GI Medical History: GERD History: Renal Disease Psycho-Social History: Anxiety, Depression Male Reproductive Disorders: Prostate Problems Other Medical History: HAD INFANTILE PARALYSIS; BPH - Past Surgical History Past Surgical History: Yes Neuro Surgical History: No Pertinent History Cardiac: CABG Respiratory: No Pertinent History Gastrointestinal: No Pertinent History Genitourinary: No Pertinent History Musculoskeletal: Orthopedic Surgery Male Surgical History: No Pertinent History Other Surgical History: amputation below knee R. quad bypass - Social History Smoking Status: Current every day smoker How long have you smoked: 59 years Exposure to second hand smoke: Yes Alcohol Use: Socially Drug Use: none Patient Lives Alone: No (Friend) Significant Family History: heart disease - Nursing Vital Signs Nursing Vital Signs: Initial Vital Signs Temperature 97.4 F 01/11/22 13:59 Pulse Rate 72 01/11/22 13:59 Respiratory Rate 18 01/11/22 13:59 Blood Pressure 112/72 01/11/22 13:59 O2 Sat by Pulse Oximetry 97 01/11/22 13:59 Pain Scale Pain Intensity 2 WNL - Pedro Coma Score Best Eye Response ([place]): (4) open spontaneously Best Verbal Response ([place]): (5) oriented Best Motor Response ([place]): (6) obeys commands [place] Total: 15 - Physical Exam General Appearance: no apparent distress Head Injury: no evidence of injury, No active bleeding Eye Exam: PERRL/EOMI, eyes nml inspection, other (Chronic R superior eyelid droop) ENT Exam: airway nml, No evidence of ENT injury, No clear fluid (ears), No clear fluid (nose) Neck Exam: supple, trachea midline, full range of motion (C-spine NTTP) Respiratory/Chest Exam: chest tenderness (L anterior thoracic TTP), normal breath sounds, No respiratory distress, No crepitus Cardiovascular Exam: normal heart sounds, regular rate/rhythm, normal peripheral pulses, No murmur Gastrointestinal Exam: soft, normal bowel sounds, No tenderness, No distention Back Exam: normal inspection (No T or L-spine TTP) Extremity Exam: capillary refill <3 sec, pelvis stable, bony point tenderness (Diffuse L dorsal hand TTP/Good radial pulse, distal sensation, and capillary return/L 1st digit w old amputation), other (R BKA) Peripheral Pulses: carotid (R): 2+, carotid (L): 2+ Neurologic Exam: alert, oriented x 3, cooperative, press tender short goods II-XII nml as tested, normal mood/affect, sensation nml Skin Exam: normal color, warm, dry SpO2 Interpretation: normal SpO2: 97 O2 Delivery: Room Air Procedures - Splinting Location of Splint: Left, Hand Type of Splint: Orthoglass Finger Splint Splint Applied By: ED Physician Pre-Proc Neuro Vasc Exam: normal Post-Proc Neuro Vasc Exam: neurovascular intact - Course Nursing assessment & vital signs reviewed: Yes EKG Interpreted by Me: RATE (NSR/Rate67/RBBB/LAFB/Prolonged QTc/1st degree AV block/No acute ST segment changes) - Radiology Exams Hand X-ray Interpretation: Discussed w/ radiologist (L hand-L 5th metacarpal fx) - CT Exams Chest CT Interpretation: Discussed w/radiologist (Ct chest neg for acute dz) Ordered Tests: Active Orders 24 hr Category Date Time Status EKG-ER Only STAT Care 01/11/22 14:43 Completed CHEST WITHOUT CONTRAST [CT] Stat Exams 01/11/22 14:34 Completed HAND (MINIMUM 3 VIEWS) Stat Exams 01/11/22 14:48 Completed CBC W DIFF Stat Lab 01/11/22 16:15 Completed CMP Stat Lab 01/11/22 16:15 Completed TROPONIN Q3H Lab 01/11/22 16:15 Completed Lab/Rad Data: Laboratory Result Diagrams 01/11/22 16:15 01/11/22 16:15 Laboratory Results 01/11/22 01/11/22 01/11/22 Range/Units 16:15 16:15 16:15 WBC 6.1 (4.0-10.5) x10^3/uL RBC 4.36 (4.1-5.6) x10^6/uL Hgb 15.6 (12.5-18.0) g/dL Hct 46.3 (42-50) % MCV 106.2 H (78-100) fL MCH 35.8 H (26-32) pg MCHC 33.7 (32-36) g/dL RDW 13.2 (11.5-14.0) % Plt Count 137 L (150-450) x10^3/uL MPV 10.0 (7.5-11.0) fL Gran % 73.0 H (36.0-66.0) % Immature Gran % (Auto) 0.3 (0.00-0.4) % Nucleat RBC Rel Count 0.0 (0.00-0.1) % Eos # (Auto) 0.11 (0-0.5) x10^3/uL Immature Gran # (Auto) 0.02 (0.00-0.03) x10^3u/L Absolute Lymphs (auto) 0.89 L (1.0-4.6) x10^3/uL Absolute Monos (auto) 0.56 (0.0-1.3) x10^3/uL Absolute Nucleated RBC 0.00 (0.00-0.01) x10^3u/L Lymphocytes % 14.6 L (24.0-44.0) % Monocytes % 9.2 (0.0-12.0) % Eosinophils % 1.8 (0.00-5.0) % Basophils % 1.1 (0.0-0.4) % Absolute Granulocytes 4.46 (1.4-6.9) x10^3/uL Basophils # 0.07 (0-0.4) x10^3/uL Sodium 136 L (137-145) mmol/L Potassium 4.7 (3.5-5.1) mmol/L Chloride 101 (98-107) mmol/L Carbon Dioxide 32 H (22-30) mmol/L Anion Gap 8.2 (5-15) MEQ/L BUN 12 (9-20) mg/dL Creatinine 0.98 (0.66-1.25) mg/dL Estimated GFR > 60.0 ML/MIN Glucose 228 H (74-106) mg/dL Calcium 9.2 (8.4-10.2) mg/dL Total Bilirubin 1.00 (0.2-1.3) mg/dL AST 32 (17-59) U/L ALT 22 (0-50) U/L Alkaline Phosphatase 70 (38-126) U/L Troponin I < 0.012 (0.000-0.034) ng/mL Serum Total Protein 6.3 (6.3-8.2) g/dL Albumin 3.6 (3.5-5.0) g/dL Slides for Path Review YES - Progress Progress: improved Progress Note: 01/11/22 17:12 Pt refused pain meds during entire stay Counseled pt/family regarding: diagnosis, need for follow-up, rad results - Departure Departure Disposition: Home Clinical Impression: Metacarpal bone fracture, Contusion, chest wall Condition: Stable Critical Care Time: No Referrals: KENNETH,ОЛЬГА, MD [Primary Care Provider] - Follow up/PCP as directed ORTHO - ISABELLA DOE NP [NON-STAFF PHY W/O PRIVILEGES] - Follow up/PCP as directed Instructions: Hand Fracture (DC), Contusion (DC), Minor Contusion ED Additional Instructions: Follow up in ortho clinic Mon-Fri 8:00-10:00AM Motrin/Tylenol for pain Return to ER as needed
--- NOTE | 2022-01-11 14:58 | XRAY ---
Indication: Pain following fall. Comparison: None 3 view left hand demonstrates mildly angulated acute fracture distal shaft 5th metacarpal. Elsewhere osteopenia, partial amputation 1st phalanx, markedly advanced 1st metacarpal multangular degenerative changes, punctate soft tissue foreign bodies 5th PIP/lateral wrist, advanced radioulnar carpal degenerative changes with chondrocalcinosis, and vascular calcifications adjacent to 1st metacarpal.
--- NOTE | 2022-01-11 15:16 | XRAY ---
Indication: Left chest pain following fall 4 days ago. Multiple contiguous images obtained through the chest without contrast. Comparison: February 01, 2021. Lungs again demonstrates minimal dependent atelectasis less than before. Stable tiny posterior left upper lobe calcified calcified granulomas. Superior segment left lower lobe demonstrates stable 3-4 mm noncalcified nodularity probably granulomatous. Stable minimal biapical subpleural cystic changes. No new pulmonary mass, infiltrate, effusion, or pneumothorax. Heart is not enlarged again with CABG. Aorta remains mildly arteriosclerotic without aneurysm. Stable small mediastinal and left hilar calcified nodes. No pathologic mediastinal lymphadenopathy. Bony thorax remains intact again with mild osteopenia, minimal degenerative changes throughout the spine, and sternotomy wires. Limited upper abdomen again demonstrates numerous tiny hepatic/splenic calcified granulomas and scattered arteriosclerotic calcifications. Impression: 1. Again biapical subpleural cystic changes, chronic bony findings, and old granulomatous disease. 2. Remaining CT chest without contrast exam is negative.
[2022-01-11 16:32] LABS: Absolute Neutrophil Ct (ANC) 4.46 x10^3/uL (1.4-6.9); Basophil (Absolute #) 0.07 x10^3/uL (0-0.4); Eosinophil % 1.8 % (0.00-5.0); Eosinophil (Absolute #) 0.11 x10^3/uL (0-0.5); Hematocrit 46.3 % (42-50); Hemoglobin 15.6 g/dL (12.5-18.0); Lymphocyte (Absolute #) 0.89 x10^3/uL (1.0-4.6); Lymphocytes % 14.6 % (24.0-44.0); Mean Cell Volume 106.2 fL (78-100); Mean Corpuscular Hemoglobin 35.8 pg (26-32); Mean Corpuscular Hgb Concent. 33.7 g/dL (32-36); Monocyte (Absolute #) 0.56 x10^3/uL (0.0-1.3); Monocytes % 9.2 % (0.0-12.0); Platelet Count 137 x10^3/uL (150-450); Red Blood Count 4.36 x10^6/uL (4.1-5.6); Red Cell Distribution Width 13.2 % (11.5-14.0); White Blood Count 6.1 x10^3/uL (4.0-10.5)
[2022-01-11 16:42] LABS: ALBUMIN 3.6 g/dL (3.5-5.0); ALKALINE PHOSPHATASE 70 U/L (38-126); ANION GAP 8.2 MEQ/L (5-15); BLOOD UREA NITROGEN 12 mg/dL (9-20); CHLORIDE 101 mmol/L (98-107); Calcium 9.2 mg/dL (8.4-10.2); Carbon Dioxide 32 mmol/L (22-30); Creatinine 1 0.98 mg/dL (0.66-1.25); EST GLOMERULAR FILTRATION RATE > 60.0 ML/MIN; Glucose 228 mg/dL (74-106); Potassium 4.7 mmol/L (3.5-5.1); SGOT/AST 32 U/L (17-59); SGPT/ALT 22 U/L (0-50); SODIUM 136 mmol/L (137-145); Total Protein 6.3 g/dL (6.3-8.2)
[2022-01-11 17:08] VITALS: BP 124/80; PULSE 85
[2022-01-11 17:14] VITALS: O2SAT 97
[2022-01-11 21:18] LABS: Slide Review 1 YES
== END 2022-01-11 17:28 | disposition home or self-care (01) ==
LOC: ED 13:48
DX: S20.212A Contusion of left front wall of thorax, initial encounter (principal); S62.327A Displaced fracture of shaft of fifth metacarpal bone, left hand, initial encounter for closed fracture; W01.0XXA Fall on same level from slipping, tripping and stumbling without subsequent striking against object, initial encounter; Y92.003 Bedroom of unspecified non-institutional (private) residence as the place of occurrence of the external cause; R07.9 Chest pain, unspecified; M79.642 Pain in left hand; Z89.511 Acquired absence of right leg below knee; I10 Essential (primary) hypertension; J44.9 Chronic obstructive pulmonary disease, unspecified; E11.42 Type 2 diabetes mellitus with diabetic polyneuropathy; Z79.52 Long term (current) use of systemic steroids; Z79.4 Long term (current) use of insulin; Z79.899 Other long term (current) drug therapy; Z72.0 Tobacco use
CPT/HCPCS: 29130; 36415; 71250; 73130; 80053; 84484; 85025; 93005; 99284

== ENCOUNTER 2022-04-20 14:43 | Emergency (ER) | payer MEDICARE ==
[2022-04-20] MEDS ORDERED: Sodium Chloride 0.9% 1000 ML 1,000 ML IV STA (15:13)
[2022-04-20 15:25] LABS: Absolute Neutrophil Ct (ANC) 4.32 x10^3/uL (1.4-6.9); Basophil (Absolute #) 0.08 x10^3/uL (0-0.4); Eosinophil (Absolute #) 0.27 x10^3/uL (0-0.5); Lymphocyte (Absolute #) 1.51 x10^3/uL (1.0-4.6); Lymphocytes % 22.1 % (24.0-44.0); Mean Cell Volume 102.6 fL (78-100); Mean Corpuscular Hemoglobin 34.2 pg (26-32); Mean Corpuscular Hgb Concent. 33.3 g/dL (32-36); Mean Platelet Volume 9.8 fL (7.5-11.0); Monocyte (Absolute #) 0.61 x10^3/uL (0.0-1.3); Monocytes % 8.9 % (0.0-12.0); Neutrophil % 63.4 % (36.0-66.0); Platelet Count 152 x10^3/uL (150-450); Red Blood Count 4.97 x10^6/uL (4.1-5.6); Red Cell Distribution Width 13.2 % (11.5-14.0); White Blood Count 6.8 x10^3/uL (4.0-10.5)
[2022-04-20 15:55] LABS: ALBUMIN 4.2 g/dL (3.5-5.0); ALKALINE PHOSPHATASE 87 U/L (38-126); ANION GAP 9.9 MEQ/L (5-15); BLOOD UREA NITROGEN 12 mg/dL (9-20); CHLORIDE 103 mmol/L (98-107); Calcium 9.1 mg/dL (8.4-10.2); Carbon Dioxide 28 mmol/L (22-30); EST GLOMERULAR FILTRATION RATE > 60.0 ML/MIN; Glucose 175 mg/dL (74-106); LIPASE 22 U/L (23-300); Potassium 4.8 mmol/L (3.5-5.1); SGOT/AST 26 U/L (17-59); SGPT/ALT 20 U/L (0-50); SODIUM 136 mmol/L (137-145); Total Protein 7.1 g/dL (6.3-8.2)
--- NOTE | 2022-04-20 15:56 | ERPHSYRPT ---
- History of Present Illness Time Seen by Provider: 04/20/22 14:53 Historian: patient Exam Limitations: no limitations Patient Subjective Stated Complaint: Patient c/o diarrhea for past month. States he is now nauseated today. Indicates he hasn't taken any of his routine m edications in days since he doesn't feel well. Triage Nursing Assessment: Patient came back to ED in a mobilized w/c. He is alert and oriented. Patient smells of cigarette smoke, clothing has an abundant amount of animal hair on it. No SOB noted, no cough. Patient transferred self from w/c to bed. Old amputation noted to RLE. Physician History: 76-year-old male with history of diabetes mellitus, right below-knee amputation, right-sided ptosis presented in the ER with 1 month history of off-and-on loose stool with abdominal discomfort, feeling weak fatigued tired and dehydrated. Patient also report having dull aching pain all over her abdomen and now having nausea since morning. Patient was initially seen at urgent care and is sent in here for further evaluation. Denies any chest pain palpitations or shortness of breath. Has chronic smoker cough which is not any worse than usual. No fever chills or sick contact reported. Timing/Duration: week(s), intermittent, gradual onset, worse Activities at Onset: rest Quality: aching, dullness Abdominal Pain Onset Location: generalized abdomen Pain Radiation: no radiation Severity of Pain-Max: moderate Severity of Pain-Current: moderate Modifying Factors: Improves With: nothing Associated Symptoms: diarrhea, fatigue, nausea Previous symptoms: same symptoms as today Allergies/Adverse Reactions: diazepam [From Valium] Adverse Reaction (Intermediate, Verified 04/20/22 14:56) Hallucinations Home Medications: Aspirin EC 81 mg [Ecotrin 81 mg] 81 mg PO DAILY 01/13/13 [History] Carvedilol 3.125 mg [Coreg 3.125 MG] 3.125 mg PO BID 01/13/13 [History] Niacin 500 mg [Niaspan 500 mg] 500 mg PO HS 01/13/13 [History] Tamsulosin HCl 0.4 mg [Flomax 0.4 MG] 0.4 mg PO DAILY 01/13/13 [History] Furosemide 20 mg [Lasix 20 mg] 20 mg PO BID 05/09/16 [History] Finasteride 5 mg [Proscar 5 MG] 5 mg PO DAILY 10/26/16 [History] Gabapentin [Neurontin ] 600 mg PO QID 10/26/16 [History] PANTOPRAZOLE 40 mg Tablet [Protonix 40MG Tablet] 40 mg PO QAM 10/26/16 [History] Potassium Chloride 8 meq PO BID 10/26/16 [History] Prednisone 5 mg [Deltasone 5 mg] 5 mg PO DAILY 10/26/16 [History] Insulin Lispro [Humalog Kwikpen U-100] 1 unit SQ UD 12/16/18 [History] Insulin Glargine,Hum.rec.anlog [Lantus] 40 unit SQ DAILY 01/27/21 [History] Rosuvastatin Calcium 10 mg PO DAILY 01/27/21 [History] Ascorbic Acid 500 mg [Vitamin C 500 MG] 1,000 mg PO DAILY 01/31/21 [History] Hx Tetanus, Diphtheria Vaccination/Date Given: Yes Hx Influenza Vaccination/Date Given: Yes Hx Pneumococcal Vaccination/Date Given: Yes Immunizations Up to Date: Yes Travel Risk - International Travel Have you traveled outside of the country in past 3 weeks: No - Coronavirus Screening Are you exhibiting any of the following symptoms?: Yes Symptoms: Vomiting/Diarrhea Close contact with a COVID-19 positive Pt in past 14-21 Days: No - Vaccine Status Have you recieved a Covid-19 vaccination: Yes 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 - Vaccination Dates Date of 2cond Vaccination (if applicable): 2020 - Review of Systems Constitutional: Fatigue, Weakness Eyes: No Symptoms Ears, Nose, & Throat: No Symptoms Respiratory: Cough Cardiac: No Symptoms Abdominal/Gastrointestinal: Abdominal Pain, Nausea, Diarrhea Genitourinary Symptoms: No Symptoms Musculoskeletal: Arthralgias Skin: No Symptoms Neurological: No Symptoms Psychological: No Symptoms Endocrine: No Symptoms Hematologic/Lymphatic: No Symptoms Immunological/Allergic: No Symptoms - Past Medical History Pertinent Past Medical History: Yes Neurological History: Peripheral Neuropathy ENT History: No Pertinent History Cardiac History: Hypertension, Myocardial Infarction ([place]), Other Respiratory History: COPD Endocrine Medical History: Diabetes Type II Musculoskeletal History: Osteoarthritis, Other GI Medical History: GERD History: Renal Disease Psycho-Social History: Anxiety, Depression Male Reproductive Disorders: Prostate Problems Other Medical History: HAD INFANTILE PARALYSIS; BPH - Past Surgical History Past Surgical History: Yes Neuro Surgical History: No Pertinent History Cardiac: CABG Respiratory: No Pertinent History Gastrointestinal: No Pertinent History Genitourinary: No Pertinent History Musculoskeletal: Orthopedic Surgery Male Surgical History: No Pertinent History Other Surgical History: amputation below knee R., quad bypass - Social History Smoking Status: Current every day smoker How long have you smoked: 60 years Exposure to second hand smoke: Yes Alcohol Use: Socially Drug Use: none Patient Lives Alone: No (Friend) Significant Family History: heart disease - Nursing Vital Signs Nursing Vital Signs: Initial Vital Signs Temperature 97.7 F 04/20/22 14:57 Pulse Rate 78 04/20/22 14:57 Respiratory Rate 19 04/20/22 14:57 Blood Pressure 147/89 04/20/22 14:57 O2 Sat by Pulse Oximetry 96 04/20/22 14:57 Pain Scale Pain Intensity 0 - Physical Exam General Appearance: no apparent distress, alert Eye Exam: No eyes nml inspection (Right-sided ptosis) Ears, Nose, Throat Exam: normal ENT inspection, TMs normal, pharynx normal, moist mucous membranes Neck Exam: normal inspection, non-tender, supple, full range of motion Respiratory Exam: wheezing, No chest tenderness Cardiovascular Exam: regular rate/rhythm, normal heart sounds Gastrointestinal/Abdomen Exam: soft, normal bowel sounds, tenderness (Mild generalized tenderness no guarding or rebound tenderness) Back Exam: normal inspection, normal range of motion Extremity Exam: normal range of motion, pelvis stable, other (Right below-knee amputation) Neurologic Exam: alert, oriented x 3, cooperative Skin Exam: normal color SpO2 Interpretation: normal SpO2: 96 O2 Delivery: Room Air Ordered Tests: Active Orders 24 hr Category Date Time Status IV Insertion STAT Care 04/20/22 15:13 Active NPO (ED) STAT Care 04/20/22 15:13 Active ABDOMEN AND PELVIS W/0 CONTRAS [CT] Stat Exams 04/20/22 15:14 Completed CBC W DIFF Stat Lab 04/20/22 15:20 Completed CMP Stat Lab 04/20/22 15:20 Completed LIPASE Stat Lab 04/20/22 15:20 Completed Lactic Acid Stat Lab 04/20/22 15:13 Completed TROPONIN Q4H Lab 04/20/22 15:20 Completed TROPONIN Q4H Lab 04/20/22 19:15 Ordered TROPONIN Q4H Lab 04/20/22 23:15 Ordered UA W/RFX CULTURE Stat Lab 04/20/22 16:57 Completed Medication Summary Discontinued Medications Generic Name Dose Route Start Last Admin Trade Name Landry PRN Reason Stop Dose Admin Sodium Chloride 1,000 mls @ 999 mls/hr 04/20/22 15:13 04/20/22 17:11 Sodium Chloride 0.9% 1000 Ml IV 04/20/22 16:13 Infused .Q1H1M STA Infusion Sodium Chloride Confirm 04/20/22 16:09 Sodium Chloride 0.9% 1000 Ml Administered 04/20/22 16:10 Dose 1,000 mls @ ud .ROUTE .K-MED ONE Lab/Rad Data: Laboratory Result Diagrams 04/20/22 15:20 04/20/22 15:20 Laboratory Results 04/20/22 04/20/22 04/20/22 Range/Units 16:57 15:20 15:20 WBC (4.0-10.5) x10^3/uL RBC (4.1-5.6) x10^6/uL Hgb (12.5-18.0) g/dL Hct (42-50) % MCV (78-100) fL MCH (26-32) pg MCHC (32-36) g/dL RDW (11.5-14.0) % Plt Count (150-450) x10^3/uL MPV (7.5-11.0) fL Gran % (36.0-66.0) % Immature Gran % (Auto) (0.00-0.4) % Nucleat RBC Rel Count (0.00-0.1) % Eos # (Auto) (0-0.5) x10^3/uL Immature Gran # (Auto) (0.00-0.03) x10^3u/L Absolute Lymphs (auto) (1.0-4.6) x10^3/uL Absolute Monos (auto) (0.0-1.3) x10^3/uL Absolute Nucleated RBC (0.00-0.01) x10^3u/L Lymphocytes % (24.0-44.0) % Monocytes % (0.0-12.0) % Eosinophils % (0.00-5.0) % Basophils % (0.0-0.4) % Absolute Granulocytes (1.4-6.9) x10^3/uL Basophils # (0-0.4) x10^3/uL Sodium 136 L (137-145) mmol/L Potassium 4.8 (3.5-5.1) mmol/L Chloride 103 (98-107) mmol/L Carbon Dioxide 28 (22-30) mmol/L Anion Gap 9.9 (5-15) MEQ/L BUN 12 (9-20) mg/dL Creatinine 0.80 (0.66-1.25) mg/dL Estimated GFR > 60.0 ML/MIN Glucose 175 H (74-106) mg/dL Lactic Acid (0.4-2.0) Calcium 9.1 (8.4-10.2) mg/dL Total Bilirubin 0.90 (0.2-1.3) mg/dL AST 26 (17-59) U/L ALT 20 (0-50) U/L Alkaline Phosphatase 87 (38-126) U/L Troponin I < 0.012 (0.000-0.034) ng/mL Serum Total Protein 7.1 (6.3-8.2) g/dL Albumin 4.2 (3.5-5.0) g/dL Lipase 22 L (23-300) U/L Urinalys Dipstick Clnc MAIN LAB Urine Color DARK YELLOW (YELLOW) Urine Appearance CLEAR (CLEAR) Urine pH 7.5 (5-6) Ur Specific [place] 1.015 (1.005-1.025) POC Urine Protein Conf TRACE (Negative) Urine Ketones MODERATE-40 (NEGATIVE) Urine Nitrite NEGATIVE (NEGATIVE) Urine Bilirubin SMALL (NEGATIVE) Urine Urobilinogen 4 (0-1) mg/dL Urine Leukocytes NEGATIVE (NEGATIVE) Urine WBC (Auto) NONE (0-5) /HPF Urine RBC (Auto) 3-5 (0-2) /HPF U Epithel Cells (Auto) NONE (FEW) /HPF Urine Bacteria (Auto) NONE (NEGATIVE) /HPF Urine RBC NEGATIVE (0-5) Alvin/ul Urine Mucus (Auto) SLIGHT (NEGATIVE) /HPF Ur Culture Indicated? NO Urine Glucose NEGATIVE (NEGATIVE) mg/dL 04/20/22 04/20/22 Range/Units 15:20 15:13 WBC 6.8 (4.0-10.5) x10^3/uL RBC 4.97 (4.1-5.6) x10^6/uL Hgb 17.0 (12.5-18.0) g/dL Hct 51.0 H (42-50) % MCV 102.6 H (78-100) fL MCH 34.2 H (26-32) pg MCHC 33.3 (32-36) g/dL RDW 13.2 (11.5-14.0) % Plt Count 152 (150-450) x10^3/uL MPV 9.8 (7.5-11.0) fL Gran % 63.4 (36.0-66.0) % Immature Gran % (Auto) 0.4 (0.00-0.4) % Nucleat RBC Rel Count 0.0 (0.00-0.1) % Eos # (Auto) 0.27 (0-0.5) x10^3/uL Immature Gran # (Auto) 0.03 (0.00-0.03) x10^3u/L Absolute Lymphs (auto) 1.51 (1.0-4.6) x10^3/uL Absolute Monos (auto) 0.61 (0.0-1.3) x10^3/uL Absolute Nucleated RBC 0.00 (0.00-0.01) x10^3u/L Lymphocytes % 22.1 L (24.0-44.0) % Monocytes % 8.9 (0.0-12.0) % Eosinophils % 4.0 (0.00-5.0) % Basophils % 1.2 (0.0-0.4) % Absolute Granulocytes 4.32 (1.4-6.9) x10^3/uL Basophils # 0.08 (0-0.4) x10^3/uL Sodium (137-145) mmol/L Potassium (3.5-5.1) mmol/L Chloride (98-107) mmol/L Carbon Dioxide (22-30) mmol/L Anion Gap (5-15) MEQ/L BUN (9-20) mg/dL Creatinine (0.66-1.25) mg/dL Estimated GFR ML/MIN Glucose (74-106) mg/dL Lactic Acid 1.2 (0.4-2.0) Calcium (8.4-10.2) mg/dL Total Bilirubin (0.2-1.3) mg/dL AST (17-59) U/L ALT (0-50) U/L Alkaline Phosphatase (38-126) U/L Troponin I (0.000-0.034) ng/mL Serum Total Protein (6.3-8.2) g/dL Albumin (3.5-5.0) g/dL Lipase (23-300) U/L Urinalys Dipstick Clnc Urine Color (YELLOW) Urine Appearance (CLEAR) Urine pH (5-6) Ur Specific [place] (1.005-1.025) POC Urine Protein Conf (Negative) Urine Ketones (NEGATIVE) Urine Nitrite (NEGATIVE) Urine Bilirubin (NEGATIVE) Urine Urobilinogen (0-1) mg/dL Urine Leukocytes (NEGATIVE) Urine WBC (Auto) (0-5) /HPF Urine RBC (Auto) (0-2) /HPF U Epithel Cells (Auto) (FEW) /HPF Urine Bacteria (Auto) (NEGATIVE) /HPF Urine RBC (0-5) Alvin/ul Urine Mucus (Auto) (NEGATIVE) /HPF Ur Culture Indicated? Urine Glucose (NEGATIVE) mg/dL - Progress Progress: improved Progress Note: 04/20/22 17:49 Given fluids, feeling much better on reevaluation. Normal white count, grossly unremarkable chemistries. No UTI. CT abdomen pelvis negative for any acute findings. Patient did have bowel movement which is soft to semisolid. No diarrhea today. Recommended increase hydration and outpatient follow-up. Discussed signs symptoms of worsening needing return to ER which he seems understanding. Stable for discharge. Counseled pt/family regarding: lab results, diagnosis, need for follow-up, rad results, smoking cessation - Departure Departure Disposition: Home Clinical Impression: General weakness, Diarrhea Condition: Stable Critical Care Time: No Referrals: ОЛЬГА COOPER MD [Primary Care Provider] - Follow Up with PCP/3 days Instructions: Diarrhea and Travelers' Diarrhea, Adult (DC) Additional Instructions: Drink plenty of fluids. Take Tylenol as needed for aches and pains. Follow-up with primary care for reevaluation. Return to ER for any worsening.
[2022-04-20] MEDS ORDERED: Sodium Chloride 0.9% 1000 ML 1,000 ML ONE (16:09)
--- NOTE | 2022-04-20 16:21 | XRAY ---
Indication: Abdomen pain and diarrhea. Multiple contiguous axial images obtained through the abdomen and pelvis without contrast. Comparison: February 01, 2021 Lung bases demonstrates minimal bibasilar dependent atelectasis. No infiltrate or effusion. Heart not enlarged. Noncontrasted stomach and bowel loops appear nonobstructed again with normal appendix and minimal sigmoid diverticulosis without diverticulitis. Again multiple tiny hepatic/splenic calcified granulomas. No free fluid/air. Remaining liver, gallbladder, pancreas, spleen, adrenal glands, kidneys, ureters, and bladder are unremarkable for noncontrast exam. There remains moderate aortoiliac calcifications without AAA. Osseous structures intact again with osteopenia, mild degenerative changes throughout the spine, minimal levoscoliosis, and moderate degenerative changes both hips. Impression: 1. Again sigmoid diverticulosis, arteriosclerotic disease, chronic bony findings, and old granulomatous disease. 2. Remaining CT abdomen/pelvis without contrast exam is again negative.
[2022-04-20 17:07] LABS: Appearance CLEAR (CLEAR); Bilirubin SMALL (NEGATIVE); Dipstick done @ ? MAIN LAB; Glucose NEGATIVE (NEGATIVE); Ketones MODERATE-40 (NEGATIVE); Nitrite NEGATIVE (NEGATIVE); Ph 7.5 (5-6); Protein,Urine Dip TRACE (Negative); RBC NEGATIVE Ery/ul (0-5); Specific Gravity 1.015 (1.005-1.025); Urobilinogen 4 mg/dL (0-1)
[2022-04-20 17:18] LABS: Mucus SLIGHT /HPF (NEGATIVE)
[2022-04-20 17:41] LABS: Urine Cultured Indicated? NO
[2022-04-20 18:12] VITALS: BP 136/77; PULSE 64; O2SAT 98
== END 2022-04-20 18:10 | disposition home or self-care (01) ==
LOC: ED 14:43
DX: R53.1 Weakness (principal); R19.7 Diarrhea, unspecified; R10.84 Generalized abdominal pain; R11.0 Nausea; I10 Essential (primary) hypertension; J44.9 Chronic obstructive pulmonary disease, unspecified; E11.42 Type 2 diabetes mellitus with diabetic polyneuropathy; Z72.0 Tobacco use; Z79.4 Long term (current) use of insulin; Z79.899 Other long term (current) drug therapy
CPT/HCPCS: 36000; 36415; 74176; 80053; 81015; 83605; 83690; 84484; 85025; 96360; 99283

== ENCOUNTER 2022-05-28 15:53 | Observation (INO) | payer MEDICARE ==
[2022-05-28] MEDS ORDERED: Sodium Chloride 0.9% 1000 ML 1,000 ML IV STA (16:03)
[2022-05-28] MEDS ORDERED: THIAMINE 200 MG/2 ML IV ONE (16:08)
--- NOTE | 2022-05-28 16:33 | XRAY ---
Indication: Abdomen discomfort. Comparison: January 27, 2021 Portable chest remains hyperinflated and clear. Heart not enlarged again with CABG. Bony thorax intact again with mild osteopenia and degenerative changes. Impression: Continued nonacute chest with chronic features.
[2022-05-28] MEDS ORDERED: Sodium Chloride 0.9% 1000 ML 1,000 ML ONE (16:37)
[2022-05-28] MEDS ORDERED: THIAMINE 200 MG/2 ML ONE (16:37)
[2022-05-28 17:07] LABS: Absolute Neutrophil Ct (ANC) 6.01 x10^3/uL (1.4-6.9); Basophil (Absolute #) 0.06 x10^3/uL (0-0.4); Eosinophil % 0.2 % (0.00-5.0); Eosinophil (Absolute #) 0.02 x10^3/uL (0-0.5); Hematocrit 53.3 % (42-50); Hemoglobin 17.3 g/dL (12.5-18.0); INR 1.08 (0.8-3.0); Lymphocytes % 15.9 % (24.0-44.0); Mean Cell Volume 106.4 fL (78-100); Mean Corpuscular Hemoglobin 34.5 pg (26-32); Mean Corpuscular Hgb Concent. 32.5 g/dL (32-36); Mean Platelet Volume 10.2 fL (7.5-11.0); Monocyte (Absolute #) 0.79 x10^3/uL (0.0-1.3); Monocytes % 9.6 % (0.0-12.0); Neutrophil % 73.4 % (36.0-66.0); PROTIME 11.4 SECONDS (9.4-12.5); Platelet Count 170 x10^3/uL (150-450); Red Blood Count 5.01 x10^6/uL (4.1-5.6); Red Cell Distribution Width 14.1 % (11.5-14.0); White Blood Count 8.2 x10^3/uL (4.0-10.5)
[2022-05-28 17:08] LABS: ALBUMIN 4.5 g/dL (3.5-5.0); ALKALINE PHOSPHATASE 85 U/L (38-126); AMYLASE 54 U/L (30-110); ANION GAP 10.6 MEQ/L (5-15); BLOOD UREA NITROGEN 25 mg/dL (9-20); CHLORIDE 105 mmol/L (98-107); Calcium 9.5 mg/dL (8.4-10.2); Carbon Dioxide 25 mmol/L (22-30); Creatinine 1 0.94 mg/dL (0.66-1.25); EST GLOMERULAR FILTRATION RATE > 60.0 ML/MIN; Glucose 193 mg/dL (74-106); LIPASE 26 U/L (23-300); Potassium 4.5 mmol/L (3.5-5.1); SGOT/AST 29 U/L (17-59); SGPT/ALT 21 U/L (0-50); SODIUM 136 mmol/L (137-145); Total Protein 7.5 g/dL (6.3-8.2)
[2022-05-28 17:09] LABS: ACETAMINOPHEN < 10 ug/ml (10-30); ETHYL ALCOHOL < 10 mg/dL (0-10); SALICYLATE < 1.0 mg/dL (2-20)
--- NOTE | 2022-05-28 17:14 | XRAY ---
Indication: Confusion and weakness. Multiple contiguous axial images obtained through the head without contrast. Comparison: None Study is degraded by right orbital metallic beam artifact and mild motion artifact. Age-appropriate global atrophy and mild periventricular degenerative micro-ischemia bilaterally. No acute intracranial hemorrhage, abnormal extra-axial fluid collection, or mass effect. Fourth ventricle is midline without hydrocephalus. Bony calvarium grossly intact. Visualized paranasal sinuses and mastoid air cells are clear. Impression: Right orbital metallic beam artifact and motion artifact. Otherwise grossly nonacute senile brain.
--- NOTE | 2022-05-28 17:18 | XRAY ---
Indication: Abdomen discomfort. Confusion. Multiple contiguous axial images obtained through the abdomen and pelvis without contrast. Comparison: April 20, 2022 Lung bases again demonstrates minimal dependent atelectasis. No infiltrate or effusion. Heart not enlarged. Abdomen/pelvis slightly degraded by mild respiration artifact and beam artifact from patient's arms. Noncontrasted stomach and bowel loops appear nonobstructed again with normal appendix and minimal sigmoid diverticulosis. There remains tiny hepatic/splenic calcified granulomas. No free fluid/air. Remaining liver, gallbladder, pancreas, spleen, adrenal glands, kidneys, ureters, and bladder are unremarkable for noncontrast exam. Again moderate aortoiliac calcifications and ectatic common iliac arteries. Osseous structures intact again with osteopenia, mild degenerative changes throughout the spine, and moderate degenerative changes both hips. Impression: No change compared to CT one month ago again demonstrating sigmoid diverticulosis, arteriosclerotic disease, chronic bony findings, and old granulomatous disease. No new/acute findings on this noncontrast exam.
[2022-05-28 17:30] LABS: INFLUENZA A NEGATIVE (NEGATIVE); INFLUENZA B NEGATIVE (NEGATIVE); RESPIRATORY SYNCTIAL VIRUS NEGATIVE (Negative); SARS-CoV-2 Xpert Express NEGATIVE (NEGATIVE)
--- NOTE | 2022-05-28 17:54 | ERPHSYRPT ---
- History of Present Illness Time Seen by Provider: 05/28/22 16:20 Source: EMS Exam Limitations: clinical condition (Mental confusion) Patient Subjective Stated Complaint: PT HERE FOR WEAKNESS AND CONFUSION FOR 4 DAYS NOW, Triage Nursing Assessment: PT ALERT, RESP EASY, SKIN W/D/P,HAS CONGESTED SOUNDING COUGH, CONFUSED TO DATE AND PRESIDENT, CHEST WITH WHEEZES , BELOW KNEE AMPUTEE Physician History: Patient is a 76-year-old white male who presents to the ER by ambulance. The EMS reports that the eligibility specialist told them that he had been weak and confused for 4 days he is also been coughing and wheezing for 3 to 4 days. No other history available at this time. Later we were able to speak with his [id number] wh o says that over the last 4 days he has undergone quite a change she is normally alert oriented conversant and this represents a significant change for him from a mental status standpoint. Timing/Duration: day(s) (4), worse Cough Quality/Degree: productive cough Allergies/Adverse Reactions: diazepam [From Valium] Adverse Reaction (Intermediate, Verified 04/20/22 14:56) Hallucinations Home Medications: Aspirin EC 81 mg [Ecotrin 81 mg] 81 mg PO DAILY 01/13/13 [History] Carvedilol 3.125 mg [Coreg 3.125 MG] 3.125 mg PO BID 01/13/13 [History] Niacin 500 mg [Niaspan 500 mg] 500 mg PO HS 01/13/13 [History] Tamsulosin HCl 0.4 mg [Flomax 0.4 MG] 0.4 mg PO DAILY 01/13/13 [History] Furosemide 20 mg [Lasix 20 mg] 20 mg PO BID 05/09/16 [History] Finasteride 5 mg [Proscar 5 MG] 5 mg PO DAILY 10/26/16 [History] Gabapentin [Neurontin ] 600 mg PO QID 10/26/16 [History] PANTOPRAZOLE 40 mg Tablet [Protonix 40MG Tablet] 40 mg PO QAM 10/26/16 [History] Potassium Chloride 8 meq PO BID 10/26/16 [History] Prednisone 5 mg [Deltasone 5 mg] 5 mg PO DAILY 10/26/16 [History] Insulin Lispro [Humalog Kwikpen U-100] 1 unit SQ UD 12/16/18 [History] Insulin Glargine,Hum.rec.anlog [Lantus] 40 unit SQ DAILY 01/27/21 [History] Rosuvastatin Calcium 10 mg PO DAILY 01/27/21 [History] Ascorbic Acid 500 mg [Vitamin C 500 MG] 1,000 mg PO DAILY 01/31/21 [History] Hx Tetanus, Diphtheria Vaccination/Date Given: Yes Hx Influenza Vaccination/Date Given: Yes Hx Pneumococcal Vaccination/Date Given: Yes Immunizations Up to Date: Yes Travel Risk - International Travel Have you traveled outside of the country in past 3 weeks: No - Coronavirus Screening Symptoms: Cough: New Onset, Headaches/Body Aches/Fatigue Close contact with a COVID-19 positive Pt in past 14-21 Days: No - Vaccine Status Have you recieved a Covid-19 vaccination: Yes [employer]: Moderna - Vaccination Dates Date of 2cond Vaccination (if applicable): 2020 - Review of Systems All Other Systems: Unable due to condition - Past Medical History Pertinent Past Medical History: Yes Neurological History: Peripheral Neuropathy ENT History: No Pertinent History Cardiac History: Hypertension, Myocardial Infarction (IA), Other Respiratory History: COPD Endocrine Medical History: Diabetes Type II Musculoskeletal History: Osteoarthritis, Other GI Medical History: GERD History: Renal Disease Psycho-Social History: Anxiety, Depression Male Reproductive Disorders: Prostate Problems Other Medical History: HAD INFANTILE PARALYSIS; BPH - Past Surgical History Past Surgical History: Yes Neuro Surgical History: No Pertinent History Cardiac: CABG Respiratory: No Pertinent History Gastrointestinal: No Pertinent History Genitourinary: No Pertinent History Musculoskeletal: Orthopedic Surgery Male Surgical History: No Pertinent History Other Surgical History: amputation below knee R., quad bypass - Social History Smoking Status: Current every day smoker How long have you smoked: 60 years Exposure to second hand smoke: Yes Alcohol Use: Socially Drug Use: none Patient Lives Alone: No (Friend) Significant Family History: heart disease - Nursing Vital Signs Nursing Vital Signs: Initial Vital Signs Temperature 96.7 F 05/28/22 16:01 Pulse Rate 76 05/28/22 16:01 Respiratory Rate 18 05/28/22 16:01 Blood Pressure 136/93 10/31/22 16:01 O2 Sat by Pulse Oximetry 97 05/28/22 16:01 Pain Scale Pain Intensity 0 - Physical Exam General Appearance: no apparent distress Eye Exam: PERRL/EOMI, eyes nml inspection Ears, Nose, Throat Exam: normal ENT inspection, TMs normal, pharynx normal, moist mucous membranes Neck Exam: normal inspection, non-tender, supple, full range of motion Respiratory Exam: crackles/rales, rhonchi, wheezing Cardiovascular Exam: regular rate/rhythm, normal heart sounds Gastrointestinal/Abdomen Exam: soft, normal bowel sounds, No tenderness Back Exam: normal inspection, No CVA tenderness, No vertebral tenderness Extremity Exam: other (Right BK amputation) Neurologic Exam: disoriented, confusion Skin Exam: normal color, warm, dry SpO2 Interpretation: normal SpO2: 98 O2 Delivery: Room Air - Course Nursing assessment & vital signs reviewed: Yes EKG Interpreted by Me: RATE (75), Sinus Rhythm, NORMAL AXIS, Right Bundle Branch Block, Non-specific ST Changes Ordered Tests: Active Orders 24 hr Category Date Time Status EKG-ER Only STAT Care 05/28/22 16:03 Active IV Insertion STAT Care 05/28/22 16:03 Active NPO (ED) STAT Care 05/28/22 16:07 Active ABDOMEN AND PELVIS W/0 CONTRAS [CT] Stat Exams 05/28/22 16:05 Completed CHEST 1 VIEW (PORTABLE) Stat Exams 05/28/22 16:04 Completed HEAD WITHOUT CONTRAST [CT] Stat Exams 05/28/22 16:07 Completed ACETAMINOPHEN Stat Lab 05/28/22 16:40 Completed AMYLASE Stat Lab 05/28/22 16:40 Completed BLOOD CULTURE Stat Lab 05/28/22 16:45 Received CBC W DIFF Stat Lab 05/28/22 16:40 Completed CMP Stat Lab 05/28/22 16:40 Completed ETHYL ALCOHOL Stat Lab 05/28/22 16:40 Completed LIPASE Stat Lab 05/28/22 16:40 Completed Lactic Acid Stat Lab 05/28/22 16:50 Completed PROTIME WITH INR Stat Lab 05/28/22 16:40 Completed SALICYLATE Stat Lab 05/28/22 16:40 Completed TROPONIN Q4H Lab 05/28/22 16:40 Completed TROPONIN Q4H Lab 05/28/22 20:15 Ordered TROPONIN Q4H Lab 05/29/22 00:15 Ordered UA W/RFX CULTURE Stat Lab 05/28/22 17:50 Completed Urine Triage Profile Stat Lab 05/28/22 17:52 Completed Medication Summary Discontinued Medications Generic Name Dose Route Start Last Admin Trade Name Landry PRN Reason Stop Dose Admin Sodium Chloride 1,000 mls @ 999 mls/hr 05/28/22 16:03 05/28/22 18:16 Sodium Chloride 0.9% 1000 Ml IV 05/28/22 17:03 Infused .Q1H1M STA Infusion Sodium Chloride Confirm 05/28/22 16:37 Sodium Chloride 0.9% 1000 Ml Administered 05/28/22 16:38 Dose 1,000 mls @ ud .ROUTE .STK-MED ONE Thiamine HCl 100 mg 05/28/22 16:08 05/28/22 16:38 Thiamine Hcl 200 Mg/2 Ml Vial IV 05/28/22 16:09 100 mg STAT ONE Administration Thiamine HCl Confirm 05/28/22 16:37 Thiamine Hcl 200 Mg/2 Ml Vial Administered 05/28/22 16:38 Dose 200 mg .ROUTE .STK-MED ONE Lab/Rad Data: Laboratory Result Diagrams 05/28/22 16:40 05/28/22 16:40 Laboratory Results 05/28/22 05/28/22 05/28/22 Range/Units Unknown 17:52 17:50 WBC (4.0-10.5) x10^3/uL RBC (4.1-5.6) x10^6/uL Hgb (12.5-18.0) g/dL Hct (42-50) % MCV (78-100) fL MCH (26-32) pg MCHC (32-36) g/dL RDW (11.5-14.0) % Plt Count (150-450) x10^3/uL MPV (7.5-11.0) fL Gran % (36.0-66.0) % Immature Gran % (Auto) (0.00-0.4) % Nucleat RBC Rel Count (0.00-0.1) % Eos # (Auto) (0-0.5) x10^3/uL Immature Gran # (Auto) (0.00-0.03) x10^3u/L Absolute Lymphs (auto) (1.0-4.6) x10^3/uL Absolute Monos (auto) (0.0-1.3) x10^3/uL Absolute Nucleated RBC (0.00-0.01) x10^3u/L Lymphocytes % (24.0-44.0) % Monocytes % (0.0-12.0) % Eosinophils % (0.00-5.0) % Basophils % (0.0-0.4) % Absolute Granulocytes (1.4-6.9) x10^3/uL Basophils # (0-0.4) x10^3/uL PT (9.4-12.5) SECONDS INR (0.8-3.0) Sodium (137-145) mmol/L Potassium (3.5-5.1) mmol/L Chloride (98-107) mmol/L Carbon Dioxide (22-30) mmol/L Anion Gap (5-15) MEQ/L BUN (9-20) mg/dL Creatinine (0.66-1.25) mg/dL Estimated GFR ML/MIN Glucose (74-106) mg/dL Lactic Acid (0.4-2.0) Calcium (8.4-10.2) mg/dL Total Bilirubin (0.2-1.3) mg/dL AST (17-59) U/L ALT (0-50) U/L Alkaline Phosphatase (38-126) U/L Troponin I (0.000-0.034) ng/mL Serum Total Protein (6.3-8.2) g/dL Albumin (3.5-5.0) g/dL Amylase (30-110) U/L Lipase (23-300) U/L Urinalys Dipstick Clnc MAIN LAB Urine Color DARK YELLOW (YELLOW) Urine Appearance SLIGHTLY CLOUDY A (CLEAR) Urine pH 7.0 (5-6) Ur Specific Riva 1.025 (1.005-1.025) POC Urine Protein Conf NEGATIVE (Negative) Urine Ketones SMALL-15 A (NEGATIVE) Urine Nitrite NEGATIVE (NEGATIVE) Urine Bilirubin SMALL A (NEGATIVE) Urine Urobilinogen 1 A (0-1) mg/dL Urine Leukocytes NEGATIVE (NEGATIVE) Urine WBC (Auto) NONE (0-5) /HPF Urine RBC (Auto) NONE (0-2) /HPF U Epithel Cells (Auto) NONE (FEW) /HPF Urine Bacteria (Auto) NONE (NEGATIVE) /HPF Urine RBC NEGATIVE (0-5) Alvin/ul Urine Mucus (Auto) SLIGHT A (NEGATIVE) /HPF Ur Culture Indicated? NO Urine Glucose NEGATIVE (NEGATIVE) mg/dL Salicylates (2-20) mg/dL Urine Opiates Level POSITIVE (NEGATIVE) Ur Methadone NEGATIVE (NEGATIVE) Acetaminophen (10-30) ug/ml Urine Barbiturates NEGATIVE (NEGATIVE) Ur Phencyclidine (PCP) NEGATIVE (NEGATIVE) Urine Amphetamine NEGATIVE (NEGATIVE) U Benzodiazepine Level NEGATIVE (NEGATIVE) Urine Cocaine NEGATIVE (NEGATIVE) Urine Marijuana (THC) NEGATIVE (NEGATIVE) Ethyl Alcohol (0-10) mg/dL Influenza Type A Ag NEGATIVE (NEGATIVE) Influenza Type B Ag NEGATIVE (NEGATIVE) RSV (PCR) NEGATIVE (Negative) SARS-CoV-2 (PCR) NEGATIVE (NEGATIVE) 05/28/22 05/28/22 05/28/22 Range/Units 16:50 16:40 16:40 WBC (4.0-10.5) x10^3/uL RBC (4.1-5.6) x10^6/uL Hgb (12.5-18.0) g/dL Hct (42-50) % MCV (78-100) fL MCH (26-32) pg MCHC (32-36) g/dL RDW (11.5-14.0) % Plt Count (150-450) x10^3/uL MPV (7.5-11.0) fL Gran % (36.0-66.0) % Immature Gran % (Auto) (0.00-0.4) % Nucleat RBC Rel Count (0.00-0.1) % Eos # (Auto) (0-0.5) x10^3/uL Immature Gran # (Auto) (0.00-0.03) x10^3u/L Absolute Lymphs (auto) (1.0-4.6) x10^3/uL Absolute Monos (auto) (0.0-1.3) x10^3/uL Absolute Nucleated RBC (0.00-0.01) x10^3u/L Lymphocytes % (24.0-44.0) % Monocytes % (0.0-12.0) % Eosinophils % (0.00-5.0) % Basophils % (0.0-0.4) % Absolute Granulocytes (1.4-6.9) x10^3/uL Basophils # (0-0.4) x10^3/uL PT (9.4-12.5) SECONDS INR (0.8-3.0) Sodium (137-145) mmol/L Potassium (3.5-5.1) mmol/L Chloride (98-107) mmol/L Carbon Dioxide (22-30) mmol/L Anion Gap (5-15) MEQ/L BUN (9-20) mg/dL Creatinine (0.66-1.25) mg/dL Estimated GFR ML/MIN Glucose (74-106) mg/dL Lactic Acid 1.7 (0.4-2.0) Calcium (8.4-10.2) mg/dL Total Bilirubin (0.2-1.3) mg/dL AST (17-59) U/L ALT (0-50) U/L Alkaline Phosphatase (38-126) U/L Troponin I 0.019 (0.000-0.034) ng/mL Serum Total Protein (6.3-8.2) g/dL Albumin (3.5-5.0) g/dL Amylase (30-110) U/L Lipase (23-300) U/L Urinalys Dipstick Clnc Urine Color (YELLOW) Urine Appearance (CLEAR) Urine pH (5-6) Ur Specific Riva (1.005-1.025) POC Urine Protein Conf (Negative) Urine Ketones (NEGATIVE) Urine Nitrite (NEGATIVE) Urine Bilirubin (NEGATIVE) Urine Urobilinogen (0-1) mg/dL Urine Leukocytes (NEGATIVE) Urine WBC (Auto) (0-5) /HPF Urine RBC (Auto) (0-2) /HPF U Epithel Cells (Auto) (FEW) /HPF Urine Bacteria (Auto) (NEGATIVE) /HPF Urine RBC (0-5) Alvin/ul Urine Mucus (Auto) (NEGATIVE) /HPF Ur Culture Indicated? Urine Glucose (NEGATIVE) mg/dL Salicylates < 1.0 L (2-20) mg/dL Urine Opiates Level (NEGATIVE) Ur Methadone (NEGATIVE) Acetaminophen < 10 L (10-30) ug/ml Urine Barbiturates (NEGATIVE) Ur Phencyclidine (PCP) (NEGATIVE) Urine Amphetamine (NEGATIVE) U Benzodiazepine Level (NEGATIVE) Urine Cocaine (NEGATIVE) Urine Marijuana (THC) (NEGATIVE) Ethyl Alcohol < 10 (0-10) mg/dL Influenza Type A Ag (NEGATIVE) Influenza Type B Ag (NEGATIVE) RSV (PCR) (Negative) SARS-CoV-2 (PCR) (NEGATIVE) 05/28/22 05/28/22 05/28/22 Range/Units 16:40 16:40 16:40 WBC 8.2 (4.0-10.5) x10^3/uL RBC 5.01 (4.1-5.6) x10^6/uL Hgb 17.3 (12.5-18.0) g/dL Hct 53.3 H (42-50) % MCV 106.4 H (78-100) fL MCH 34.5 H (26-32) pg MCHC 32.5 (32-36) g/dL RDW 14.1 H (11.5-14.0) % Plt Count 170 (150-450) x10^3/uL MPV 10.2 (7.5-11.0) fL Gran % 73.4 H (36.0-66.0) % Immature Gran % (Auto) 0.2 (0.00-0.4) % Nucleat RBC Rel Count 0.0 (0.00-0.1) % Eos # (Auto) 0.02 (0-0.5) x10^3/uL Immature Gran # (Auto) 0.02 (0.00-0.03) x10^3u/L Absolute Lymphs (auto) 1.30 (1.0-4.6) x10^3/uL Absolute Monos (auto) 0.79 (0.0-1.3) x10^3/uL Absolute Nucleated RBC 0.00 (0.00-0.01) x10^3u/L Lymphocytes % 15.9 L (24.0-44.0) % Monocytes % 9.6 (0.0-12.0) % Eosinophils % 0.2 (0.00-5.0) % Basophils % 0.7 (0.0-0.4) % Absolute Granulocytes 6.01 (1.4-6.9) x10^3/uL Basophils # 0.06 (0-0.4) x10^3/uL PT 11.4 (9.4-12.5) SECONDS INR 1.08 (0.8-3.0) Sodium 136 L (137-145) mmol/L Potassium 4.5 (3.5-5.1) mmol/L Chloride 105 (98-107) mmol/L Carbon Dioxide 25 (22-30) mmol/L Anion Gap 10.6 (5-15) MEQ/L BUN 25 H (9-20) mg/dL Creatinine 0.94 (0.66-1.25) mg/dL Estimated GFR > 60.0 ML/MIN Glucose 193 H (74-106) mg/dL Lactic Acid (0.4-2.0) Calcium 9.5 (8.4-10.2) mg/dL Total Bilirubin 1.10 (0.2-1.3) mg/dL AST 29 (17-59) U/L ALT 21 (0-50) U/L Alkaline Phosphatase 85 (38-126) U/L Troponin I (0.000-0.034) ng/mL Serum Total Protein 7.5 (6.3-8.2) g/dL Albumin 4.5 (3.5-5.0) g/dL Amylase 54 (30-110) U/L Lipase 26 (23-300) U/L Urinalys Dipstick Clnc Urine Color (YELLOW) Urine Appearance (CLEAR) Urine pH (5-6) Ur Specific Riva (1.005-1.025) POC Urine Protein Conf (Negative) Urine Ketones (NEGATIVE) Urine Nitrite (NEGATIVE) Urine Bilirubin (NEGATIVE) Urine Urobilinogen (0-1) mg/dL Urine Leukocytes (NEGATIVE) Urine WBC (Auto) (0-5) /HPF Urine RBC (Auto) (0-2) /HPF U Epithel Cells (Auto) (FEW) /HPF Urine Bacteria (Auto) (NEGATIVE) /HPF Urine RBC (0-5) Alvin/ul Urine Mucus (Auto) (NEGATIVE) /HPF Ur Culture Indicated? Urine Glucose (NEGATIVE) mg/dL Salicylates (2-20) mg/dL Urine Opiates Level (NEGATIVE) Ur Methadone (NEGATIVE) Acetaminophen (10-30) ug/ml Urine Barbiturates (NEGATIVE) Ur Phencyclidine (PCP) (NEGATIVE) Urine Amphetamine (NEGATIVE) U Benzodiazepine Level (NEGATIVE) Urine Cocaine (NEGATIVE) Urine Marijuana (THC) (NEGATIVE) Ethyl Alcohol (0-10) mg/dL Influenza Type A Ag (NEGATIVE) Influenza Type B Ag (NEGATIVE) RSV (PCR) (Negative) SARS-CoV-2 (PCR) (NEGATIVE) - Progress Progress: improved Air Movement: good Blood Culture(s) Obtained: Yes Antibiotics given: No Discussed with DrRadha: Giancarlo Will see patient in: hospital (observation) - Departure Departure Disposition: Observation Clinical Impression: Altered mental status Condition: Stable Critical Care Time: No Referrals: ОЛЬГА COOPER MD [Primary Care Provider] - Follow up/PCP as directed
[2022-05-28 18:05] LABS: Appearance SLIGHTLY CLOUDY (CLEAR); Bilirubin SMALL (NEGATIVE); Glucose NEGATIVE (NEGATIVE); Ketones SMALL-15 (NEGATIVE); Protein,Urine Dip NEGATIVE (Negative); RBC NEGATIVE Ery/ul (0-5); Specific Gravity 1.025 (1.005-1.025); Urobilinogen 1 mg/dL (0-1)
[2022-05-28 18:06] LABS: Dipstick done @ ? MAIN LAB; Mucus SLIGHT /HPF (NEGATIVE); Nitrite NEGATIVE (NEGATIVE)
[2022-05-28 18:07] LABS: Urine Cultured Indicated? NO
[2022-05-28 18:17] LABS: Amphetamine,Urine NEGATIVE (NEGATIVE); Barbiturate,Urine NEGATIVE (NEGATIVE); Benzodiazepine,Urine NEGATIVE (NEGATIVE); Cocaine,Urine NEGATIVE (NEGATIVE); Methadone,Urine NEGATIVE (NEGATIVE); Opiate,Urine POSITIVE (NEGATIVE); PCP,Urine NEGATIVE (NEGATIVE); THC,Urine NEGATIVE (NEGATIVE)
[2022-05-29] MEDS: Sodium Chloride 0.9% 1000 ML 1,000 ML IV SCH ×4 (00:20→17:15)
[2022-05-29 05:08] LABS: Absolute Neutrophil Ct (ANC) 4.63 x10^3/uL (1.4-6.9); Basophil (Absolute #) 0.03 x10^3/uL (0-0.4); Eosinophil % 0.2 % (0.00-5.0); Eosinophil (Absolute #) 0.01 x10^3/uL (0-0.5); Hematocrit 48.8 % (42-50); Hemoglobin 15.8 g/dL (12.5-18.0); Lymphocyte (Absolute #) 1.13 x10^3/uL (1.0-4.6); Lymphocytes % 17.5 % (24.0-44.0); Mean Cell Volume 104.5 fL (78-100); Mean Corpuscular Hemoglobin 33.8 pg (26-32); Mean Corpuscular Hgb Concent. 32.4 g/dL (32-36); Mean Platelet Volume 9.9 fL (7.5-11.0); Monocyte (Absolute #) 0.64 x10^3/uL (0.0-1.3); Monocytes % 9.9 % (0.0-12.0); Neutrophil % 71.6 % (36.0-66.0); Platelet Count 147 x10^3/uL (150-450); Red Blood Count 4.67 x10^6/uL (4.1-5.6); Red Cell Distribution Width 13.9 % (11.5-14.0); White Blood Count 6.5 x10^3/uL (4.0-10.5)
[2022-05-29 05:29] LABS: ALBUMIN 3.7 g/dL (3.5-5.0); ALKALINE PHOSPHATASE 65 U/L (38-126); ANION GAP 6.8 MEQ/L (5-15); BLOOD UREA NITROGEN 23 mg/dL (9-20); CHLORIDE 110 mmol/L (98-107); Calcium 8.7 mg/dL (8.4-10.2); Carbon Dioxide 24 mmol/L (22-30); Creatinine 1 0.72 mg/dL (0.66-1.25); EST GLOMERULAR FILTRATION RATE > 60.0 ML/MIN; Glucose 148 mg/dL (74-106); SGOT/AST 24 U/L (17-59); SGPT/ALT 18 U/L (0-50); SODIUM 136 mmol/L (137-145); Total Protein 6.4 g/dL (6.3-8.2)
[2022-05-29] MEDS ORDERED: Ativan 2 MG/1 ML VIAL IV PRN (06:42)
[2022-05-29] MEDS ORDERED: FLUZONE HIGH-DOSE QUAD 2022-23 IM ONE (10:00)
--- NOTE | 2022-05-29 11:39 | PCM.HP ---
History of Present Illness - Chief Complaint Chief Complaint: weakness and confusion for 3-4 days History of Present Illness: is a 76 year old male.who presents to the ER by ambulance. The EMS reports that the patrol judge told them that he had been weak and confused for 4 days he is also been coughing and wheezing for 3 to 4 days. No other history available at this time. Later we were able to speak with his [id number] who says that over the last 4 days he has undergone quite a change she is normally alert oriented conversant and this represents a significant change for him from a mental status standpoint. Timing/Duration: day(s) (4), worse Cough Quality/Degree: productive cough - Review of Systems Constitutional: Fatigue, Lethargy, Weakness, No Fever, No Chills Eyes: No Symptoms Ears, Nose, & Throat: No Symptoms Respiratory: No Cough, No Short Of Breath Cardiac: No Chest Pain, No Edema, No Syncope Abdominal/Gastrointestinal: No Abdominal Pain, No Nausea, No Vomiting, No Diarrhea Genitourinary Symptoms: No Dysuria Musculoskeletal: No Back Pain, No Neck Pain Skin: No Rash Neurological: Lethargy, Other (confusion), No Dizziness, No Focal Weakness, No Sensory Changes Psychological: No Symptoms Endocrine: No Symptoms Hematologic/Lymphatic: No Symptoms Immunological/Allergic: No Symptoms Medications & Allergies Home Medications: Home Medication List Aspirin EC 81 mg [Ecotrin 81 mg] 81 mg PO DAILY 01/13/13 [History Confirmed 05/28/22] Carvedilol 3.125 mg [Coreg 3.125 MG] 3.125 mg PO BID 01/13/13 [History Confirmed 05/28/22] Niacin 500 mg [Niaspan 500 mg] 500 mg PO HS 01/13/13 [History Confirmed 05/28/22] Tamsulosin HCl 0.4 mg [Flomax 0.4 MG] 0.4 mg PO DAILY 01/13/13 [History Confirmed 05/28/22] Furosemide 20 mg [Lasix 20 mg] 20 mg PO BID 05/09/16 [History Confirmed 05/28/22] Finasteride 5 mg [Proscar 5 MG] 5 mg PO DAILY 10/26/16 [History Confirmed 05/28/22] Gabapentin [Neurontin ] 600 mg PO QID 10/26/16 [History Confirmed 05/28/22] PANTOPRAZOLE 40 mg Tablet [Protonix 40MG Tablet] 40 mg PO QAM 10/26/16 [History Confirmed 05/28/22] Potassium Chloride 8 meq PO BID 10/26/16 [History Confirmed 05/28/22] Prednisone 5 mg [Deltasone 5 mg] 5 mg PO DAILY 10/26/16 [History Confirmed 05/28/22] Insulin Lispro [Humalog Kwikpen U-100] 1 unit SQ UD 12/16/18 [History Confirmed 05/28/22] Insulin Glargine,Hum.rec.anlog [Lantus] 40 unit SQ DAILY 01/27/21 [History Confirmed 05/28/22] Rosuvastatin Calcium 10 mg PO DAILY 01/27/21 [History Confirmed 05/28/22] Ascorbic Acid 500 mg [Vitamin C 500 MG] 1,000 mg PO DAILY 01/31/21 [History Confirmed 05/28/22] Diclofenac Sodium 50 mg [Voltaren 50 mg] 50 mg PO BID 05/28/22 [History Confirmed 05/28/22] Duloxetine HCl [Cymbalta] 60 mg PO BID 05/28/22 [History Confirmed 05/28/22] Hydrocodone/Ibuprofen [Hydrocodone-Ibuprofen 7.5-200] 1 tab PO Q6H 05/28/22 [History Confirmed 05/28/22] Allergies/Adverse Reactions: Allergies Allergy/AdvReac Type Severity Reaction Status Date / Time diazepam [From Valium] AdvReac Intermediate Hallucinati Verified 05/28/22 18:58 ons - Past Medical History Past Medical History: Yes Neurological History: Peripheral Neuropathy ENT History: No Pertinent History Cardiac History: Hypertension, Myocardial Infarction ([place]), Other Respiratory History: COPD Endocrine Medical History: Diabetes Type II Musculoskelatal History: Osteoarthritis, Other GI Medical History: GERD History: Renal Disease Pyscho-Social History: Anxiety, Depression Male Reproductive Disorders: Prostate Problems Comment: HAD INFANTILE PARALYSIS; BPH - Past Surgical History Past Surgical History: Yes Neuro Surgical History: No Pertinent History Cardiac History: CABG Respiratory Surgery: No Pertinent History GI Surgical History: No Pertinent History Genitourinary Surgical Hx: No Pertinent History Musculskeletal Surgical Hx: Orthopedic Surgery Male Surgical History: No Pertinent History Other Surgical History: amputation below knee R., quad bypass - Social History Smoking Status: Current every day smoker How long have you smoked: 60 years Exposure to second hand smoke: Yes Alcohol: Daily Drug Use: none Significant Family History: heart disease - Physical Exam Vital Signs: Vital Signs - 24 hr Temp Pulse Resp BP Pulse Ox 05/29/22 07:45 97.9 F 75 16 138/73 95 05/29/22 04:00 98.2 F 68 18 150/81 96 05/28/22 23:01 98.4 F 78 173/91 95 05/28/22 20:00 76 20 153/97 96 05/28/22 19:00 75 14 150/78 95 05/28/22 18:56 98 05/28/22 18:13 76 16 132/80 97 05/28/22 17:09 83 18 133/73 98 05/28/22 16:01 96.7 F 76 18 136/93 97 General Appearance: mild distress Neurologic Exam: alert, disoriented, confusion, No motor deficits Eye Exam: PERRL/EOMI, eyes nml inspection Ears, Nose, Throat Exam: normal ENT inspection, TMs normal, pharynx normal, moist mucous membranes Neck Exam: normal inspection, non-tender, supple, full range of motion Respiratory Exam: diminished breath sounds, No respiratory distress Cardiovascular Exam: regular rate/rhythm, normal heart sounds, normal peripheral pulses Gastrointestinal/Abdomen Exam: soft, normal bowel sounds, No tenderness, No mass Back Exam: normal inspection, normal range of motion, No CVA tenderness, No vertebral tenderness Extremity Exam: normal inspection, normal range of motion, pelvis stable Skin Exam: normal color, warm, dry, No rash Lymphatic Exam: No adenopathy Results - Labs Lab/Micro Results: Lab Results-Last 24 Hours 05/28/22 05/28/22 05/28/22 Range/Units 16:40 16:40 16:40 WBC 8.2 (4.0-10.5) x10^3/uL RBC 5.01 (4.1-5.6) x10^6/uL Hgb 17.3 (12.5-18.0) g/dL Hct 53.3 H (42-50) % MCV 106.4 H (78-100) fL MCH 34.5 H (26-32) pg MCHC 32.5 (32-36) g/dL RDW 14.1 H (11.5-14.0) % Plt Count 170 (150-450) x10^3/uL MPV 10.2 (7.5-11.0) fL Gran % 73.4 H (36.0-66.0) % Immature Gran % (Auto) 0.2 (0.00-0.4) % Nucleat RBC Rel Count 0.0 (0.00-0.1) % Eos # (Auto) 0.02 (0-0.5) x10^3/uL Immature Gran # (Auto) 0.02 (0.00-0.03) x10^3u/L Absolute Lymphs (auto) 1.30 (1.0-4.6) x10^3/uL Absolute Monos (auto) 0.79 (0.0-1.3) x10^3/uL Absolute Nucleated RBC 0.00 (0.00-0.01) x10^3u/L Lymphocytes % 15.9 L (24.0-44.0) % Monocytes % 9.6 (0.0-12.0) % Eosinophils % 0.2 (0.00-5.0) % Basophils % 0.7 (0.0-0.4) % Absolute Granulocytes 6.01 (1.4-6.9) x10^3/uL Basophils # 0.06 (0-0.4) x10^3/uL PT 11.4 (9.4-12.5) SECONDS INR 1.08 (0.8-3.0) Sodium 136 L (137-145) mmol/L Potassium 4.5 (3.5-5.1) mmol/L Chloride 105 (98-107) mmol/L Carbon Dioxide 25 (22-30) mmol/L Anion Gap 10.6 (5-15) MEQ/L BUN 25 H (9-20) mg/dL Creatinine 0.94 (0.66-1.25) mg/dL Estimated GFR > 60.0 ML/MIN Glucose 193 H (74-106) mg/dL POC Glucometer (74 to 106) mg/dL Lactic Acid (0.4-2.0) Calcium 9.5 (8.4-10.2) mg/dL Total Bilirubin 1.10 (0.2-1.3) mg/dL AST 29 (17-59) U/L ALT 21 (0-50) U/L Alkaline Phosphatase 85 (38-126) U/L Troponin I (0.000-0.034) ng/mL Serum Total Protein 7.5 (6.3-8.2) g/dL Albumin 4.5 (3.5-5.0) g/dL Amylase 54 (30-110) U/L Lipase 26 (23-300) U/L Urinalys Dipstick Clnc Urine Color (YELLOW) Urine Appearance (CLEAR) Urine pH (5-6) Ur Specific [place] (1.005-1.025) POC Urine Protein Conf (Negative) Urine Ketones (NEGATIVE) Urine Nitrite (NEGATIVE) Urine Bilirubin (NEGATIVE) Urine Urobilinogen (0-1) mg/dL Urine Leukocytes (NEGATIVE) Urine WBC (Auto) (0-5) /HPF Urine RBC (Auto) (0-2) /HPF U Epithel Cells (Auto) (FEW) /HPF Urine Bacteria (Auto) (NEGATIVE) /HPF Urine RBC (0-5) Alvin/ul Urine Mucus (Auto) (NEGATIVE) /HPF Ur Culture Indicated? Urine Glucose (NEGATIVE) mg/dL Salicylates (2-20) mg/dL Urine Opiates Level (NEGATIVE) Ur Methadone (NEGATIVE) Acetaminophen (10-30) ug/ml Urine Barbiturates (NEGATIVE) Ur Phencyclidine (PCP) (NEGATIVE) Urine Amphetamine (NEGATIVE) U Benzodiazepine Level (NEGATIVE) Urine Cocaine (NEGATIVE) Urine Marijuana (THC) (NEGATIVE) Ethyl Alcohol (0-10) mg/dL Influenza Type A Ag (NEGATIVE) Influenza Type B Ag (NEGATIVE) RSV (PCR) (Negative) SARS-CoV-2 (PCR) (NEGATIVE) 05/28/22 05/28/22 05/28/22 Range/Units 16:40 16:40 16:50 WBC (4.0-10.5) x10^3/uL RBC (4.1-5.6) x10^6/uL Hgb (12.5-18.0) g/dL Hct (42-50) % MCV (78-100) fL MCH (26-32) pg MCHC (32-36) g/dL RDW (11.5-14.0) % Plt Count (150-450) x10^3/uL MPV (7.5-11.0) fL Gran % (36.0-66.0) % Immature Gran % (Auto) (0.00-0.4) % Nucleat RBC Rel Count (0.00-0.1) % Eos # (Auto) (0-0.5) x10^3/uL Immature Gran # (Auto) (0.00-0.03) x10^3u/L Absolute Lymphs (auto) (1.0-4.6) x10^3/uL Absolute Monos (auto) (0.0-1.3) x10^3/uL Absolute Nucleated RBC (0.00-0.01) x10^3u/L Lymphocytes % (24.0-44.0) % Monocytes % (0.0-12.0) % Eosinophils % (0.00-5.0) % Basophils % (0.0-0.4) % Absolute Granulocytes (1.4-6.9) x10^3/uL Basophils # (0-0.4) x10^3/uL PT (9.4-12.5) SECONDS INR (0.8-3.0) Sodium (137-145) mmol/L Potassium (3.5-5.1) mmol/L Chloride (98-107) mmol/L Carbon Dioxide (22-30) mmol/L Anion Gap (5-15) MEQ/L BUN (9-20) mg/dL Creatinine (0.66-1.25) mg/dL Estimated GFR ML/MIN Glucose (74-106) mg/dL POC Glucometer (74 to 106) mg/dL Lactic Acid 1.7 (0.4-2.0) Calcium (8.4-10.2) mg/dL Total Bilirubin (0.2-1.3) mg/dL AST (17-59) U/L ALT (0-50) U/L Alkaline Phosphatase (38-126) U/L Troponin I 0.019 (0.000-0.034) ng/mL Serum Total Protein (6.3-8.2) g/dL Albumin (3.5-5.0) g/dL Amylase (30-110) U/L Lipase (23-300) U/L Urinalys Dipstick Clnc Urine Color (YELLOW) Urine Appearance (CLEAR) Urine pH (5-6) Ur Specific [place] (1.005-1.025) POC Urine Protein Conf (Negative) Urine Ketones (NEGATIVE) Urine Nitrite (NEGATIVE) Urine Bilirubin (NEGATIVE) Urine Urobilinogen (0-1) mg/dL Urine Leukocytes (NEGATIVE) Urine WBC (Auto) (0-5) /HPF Urine RBC (Auto) (0-2) /HPF U Epithel Cells (Auto) (FEW) /HPF Urine Bacteria (Auto) (NEGATIVE) /HPF Urine RBC (0-5) Alvin/ul Urine Mucus (Auto) (NEGATIVE) /HPF Ur Culture Indicated? Urine Glucose (NEGATIVE) mg/dL Salicylates < 1.0 L (2-20) mg/dL Urine Opiates Level (NEGATIVE) Ur Methadone (NEGATIVE) Acetaminophen < 10 L (10-30) ug/ml Urine Barbiturates (NEGATIVE) Ur Phencyclidine (PCP) (NEGATIVE) Urine Amphetamine (NEGATIVE) U Benzodiazepine Level (NEGATIVE) Urine Cocaine (NEGATIVE) Urine Marijuana (THC) (NEGATIVE) Ethyl Alcohol < 10 (0-10) mg/dL Influenza Type A Ag (NEGATIVE) Influenza Type B Ag (NEGATIVE) RSV (PCR) (Negative) SARS-CoV-2 (PCR) (NEGATIVE) 05/28/22 05/28/22 05/28/22 Range/Units 17:50 17:52 20:10 WBC (4.0-10.5) x10^3/uL RBC (4.1-5.6) x10^6/uL Hgb (12.5-18.0) g/dL Hct (42-50) % MCV (78-100) fL MCH (26-32) pg MCHC (32-36) g/dL RDW (11.5-14.0) % Plt Count (150-450) x10^3/uL MPV (7.5-11.0) fL Gran % (36.0-66.0) % Immature Gran % (Auto) (0.00-0.4) % Nucleat RBC Rel Count (0.00-0.1) % Eos # (Auto) (0-0.5) x10^3/uL Immature Gran # (Auto) (0.00-0.03) x10^3u/L Absolute Lymphs (auto) (1.0-4.6) x10^3/uL Absolute Monos (auto) (0.0-1.3) x10^3/uL Absolute Nucleated RBC (0.00-0.01) x10^3u/L Lymphocytes % (24.0-44.0) % Monocytes % (0.0-12.0) % Eosinophils % (0.00-5.0) % Basophils % (0.0-0.4) % Absolute Granulocytes (1.4-6.9) x10^3/uL Basophils # (0-0.4) x10^3/uL PT (9.4-12.5) SECONDS INR (0.8-3.0) Sodium (137-145) mmol/L Potassium (3.5-5.1) mmol/L Chloride (98-107) mmol/L Carbon Dioxide (22-30) mmol/L Anion Gap (5-15) MEQ/L BUN (9-20) mg/dL Creatinine (0.66-1.25) mg/dL Estimated GFR ML/MIN Glucose (74-106) mg/dL POC Glucometer (74 to 106) mg/dL Lactic Acid (0.4-2.0) Calcium (8.4-10.2) mg/dL Total Bilirubin (0.2-1.3) mg/dL AST (17-59) U/L ALT (0-50) U/L Alkaline Phosphatase (38-126) U/L Troponin I 0.020 (0.000-0.034) ng/mL Serum Total Protein (6.3-8.2) g/dL Albumin (3.5-5.0) g/dL Amylase (30-110) U/L Lipase (23-300) U/L Urinalys Dipstick Clnc MAIN LAB Urine Color DARK YELLOW (YELLOW) Urine Appearance SLIGHTLY CLOUDY A (CLEAR) Urine pH 7.0 (5-6) Ur Specific [place] 1.025 (1.005-1.025) POC Urine Protein Conf NEGATIVE (Negative) Urine Ketones SMALL-15 A (NEGATIVE) Urine Nitrite NEGATIVE (NEGATIVE) Urine Bilirubin SMALL A (NEGATIVE) Urine Urobilinogen 1 A (0-1) mg/dL Urine Leukocytes NEGATIVE (NEGATIVE) Urine WBC (Auto) NONE (0-5) /HPF Urine RBC (Auto) NONE (0-2) /HPF U Epithel Cells (Auto) NONE (FEW) /HPF Urine Bacteria (Auto) NONE (NEGATIVE) /HPF Urine RBC NEGATIVE (0-5) Alvin/ul Urine Mucus (Auto) SLIGHT A (NEGATIVE) /HPF Ur Culture Indicated? NO Urine Glucose NEGATIVE (NEGATIVE) mg/dL Salicylates (2-20) mg/dL Urine Opiates Level POSITIVE (NEGATIVE) Ur Methadone NEGATIVE (NEGATIVE) Acetaminophen (10-30) ug/ml Urine Barbiturates NEGATIVE (NEGATIVE) Ur Phencyclidine (PCP) NEGATIVE (NEGATIVE) Urine Amphetamine NEGATIVE (NEGATIVE) U Benzodiazepine Level NEGATIVE (NEGATIVE) Urine Cocaine NEGATIVE (NEGATIVE) Urine Marijuana (THC) NEGATIVE (NEGATIVE) Ethyl Alcohol (0-10) mg/dL Influenza Type A Ag (NEGATIVE) Influenza Type B Ag (NEGATIVE) RSV (PCR) (Negative) SARS-CoV-2 (PCR) (NEGATIVE) 05/28/22 05/28/22 05/29/22 Range/Units 23:12 Unknown 00:20 WBC (4.0-10.5) x10^3/uL RBC (4.1-5.6) x10^6/uL Hgb (12.5-18.0) g/dL Hct (42-50) % MCV (78-100) fL MCH (26-32) pg MCHC (32-36) g/dL RDW (11.5-14.0) % Plt Count (150-450) x10^3/uL MPV (7.5-11.0) fL Gran % (36.0-66.0) % Immature Gran % (Auto) (0.00-0.4) % Nucleat RBC Rel Count (0.00-0.1) % Eos # (Auto) (0-0.5) x10^3/uL Immature Gran # (Auto) (0.00-0.03) x10^3u/L Absolute Lymphs (auto) (1.0-4.6) x10^3/uL Absolute Monos (auto) (0.0-1.3) x10^3/uL Absolute Nucleated RBC (0.00-0.01) x10^3u/L Lymphocytes % (24.0-44.0) % Monocytes % (0.0-12.0) % Eosinophils % (0.00-5.0) % Basophils % (0.0-0.4) % Absolute Granulocytes (1.4-6.9) x10^3/uL Basophils # (0-0.4) x10^3/uL PT (9.4-12.5) SECONDS INR (0.8-3.0) Sodium (137-145) mmol/L Potassium (3.5-5.1) mmol/L Chloride (98-107) mmol/L Carbon Dioxide (22-30) mmol/L Anion Gap (5-15) MEQ/L BUN (9-20) mg/dL Creatinine (0.66-1.25) mg/dL Estimated GFR ML/MIN Glucose (74-106) mg/dL POC Glucometer 154 H (74 to 106) mg/dL Lactic Acid (0.4-2.0) Calcium (8.4-10.2) mg/dL Total Bilirubin (0.2-1.3) mg/dL AST (17-59) U/L ALT (0-50) U/L Alkaline Phosphatase (38-126) U/L Troponin I 0.021 (0.000-0.034) ng/mL Serum Total Protein (6.3-8.2) g/dL Albumin (3.5-5.0) g/dL Amylase (30-110) U/L Lipase (23-300) U/L Urinalys Dipstick Clnc Urine Color (YELLOW) Urine Appearance (CLEAR) Urine pH (5-6) Ur Specific [place] (1.005-1.025) POC Urine Protein Conf (Negative) Urine Ketones (NEGATIVE) Urine Nitrite (NEGATIVE) Urine Bilirubin (NEGATIVE) Urine Urobilinogen (0-1) mg/dL Urine Leukocytes (NEGATIVE) Urine WBC (Auto) (0-5) /HPF Urine RBC (Auto) (0-2) /HPF U Epithel Cells (Auto) (FEW) /HPF Urine Bacteria (Auto) (NEGATIVE) /HPF Urine RBC (0-5) Alvin/ul Urine Mucus (Auto) (NEGATIVE) /HPF Ur Culture Indicated? Urine Glucose (NEGATIVE) mg/dL Salicylates (2-20) mg/dL Urine Opiates Level (NEGATIVE) Ur Methadone (NEGATIVE) Acetaminophen (10-30) ug/ml Urine Barbiturates (NEGATIVE) Ur Phencyclidine (PCP) (NEGATIVE) Urine Amphetamine (NEGATIVE) U Benzodiazepine Level (NEGATIVE) Urine Cocaine (NEGATIVE) Urine Marijuana (THC) (NEGATIVE) Ethyl Alcohol (0-10) mg/dL Influenza Type A Ag NEGATIVE (NEGATIVE) Influenza Type B Ag NEGATIVE (NEGATIVE) RSV (PCR) NEGATIVE (Negative) SARS-CoV-2 (PCR) NEGATIVE (NEGATIVE) 05/29/22 05/29/22 05/29/22 Range/Units 04:30 04:30 04:53 WBC 6.5 (4.0-10.5) x10^3/uL RBC 4.67 (4.1-5.6) x10^6/uL Hgb 15.8 (12.5-18.0) g/dL Hct 48.8 (42-50) % MCV 104.5 H (78-100) fL MCH 33.8 H (26-32) pg MCHC 32.4 (32-36) g/dL RDW 13.9 (11.5-14.0) % Plt Count 147 L (150-450) x10^3/uL MPV 9.9 (7.5-11.0) fL Gran % 71.6 H (36.0-66.0) % Immature Gran % (Auto) 0.3 (0.00-0.4) % Nucleat RBC Rel Count 0.0 (0.00-0.1) % Eos # (Auto) 0.01 (0-0.5) x10^3/uL Immature Gran # (Auto) 0.02 (0.00-0.03) x10^3u/L Absolute Lymphs (auto) 1.13 (1.0-4.6) x10^3/uL Absolute Monos (auto) 0.64 (0.0-1.3) x10^3/uL Absolute Nucleated RBC 0.00 (0.00-0.01) x10^3u/L Lymphocytes % 17.5 L (24.0-44.0) % Monocytes % 9.9 (0.0-12.0) % Eosinophils % 0.2 (0.00-5.0) % Basophils % 0.5 (0.0-0.4) % Absolute Granulocytes 4.63 (1.4-6.9) x10^3/uL Basophils # 0.03 (0-0.4) x10^3/uL PT (9.4-12.5) SECONDS INR (0.8-3.0) Sodium 136 L (137-145) mmol/L Potassium 4.0 (3.5-5.1) mmol/L Chloride 110 H (98-107) mmol/L Carbon Dioxide 24 (22-30) mmol/L Anion Gap 6.8 (5-15) MEQ/L BUN 23 H (9-20) mg/dL Creatinine 0.72 (0.66-1.25) mg/dL Estimated GFR > 60.0 ML/MIN Glucose 148 H (74-106) mg/dL POC Glucometer (74 to 106) mg/dL Lactic Acid 1.4 (0.4-2.0) Calcium 8.7 (8.4-10.2) mg/dL Total Bilirubin 1.00 (0.2-1.3) mg/dL AST 24 (17-59) U/L ALT 18 (0-50) U/L Alkaline Phosphatase 65 (38-126) U/L Troponin I (0.000-0.034) ng/mL Serum Total Protein 6.4 (6.3-8.2) g/dL Albumin 3.7 (3.5-5.0) g/dL Amylase (30-110) U/L Lipase (23-300) U/L Urinalys Dipstick Clnc Urine Color (YELLOW) Urine Appearance (CLEAR) Urine pH (5-6) Ur Specific [place] (1.005-1.025) POC Urine Protein Conf (Negative) Urine Ketones (NEGATIVE) Urine Nitrite (NEGATIVE) Urine Bilirubin (NEGATIVE) Urine Urobilinogen (0-1) mg/dL Urine Leukocytes (NEGATIVE) Urine WBC (Auto) (0-5) /HPF Urine RBC (Auto) (0-2) /HPF U Epithel Cells (Auto) (FEW) /HPF Urine Bacteria (Auto) (NEGATIVE) /HPF Urine RBC (0-5) Alvin/ul Urine Mucus (Auto) (NEGATIVE) /HPF Ur Culture Indicated? Urine Glucose (NEGATIVE) mg/dL Salicylates (2-20) mg/dL Urine Opiates Level (NEGATIVE) Ur Methadone (NEGATIVE) Acetaminophen (10-30) ug/ml Urine Barbiturates (NEGATIVE) Ur Phencyclidine (PCP) (NEGATIVE) Urine Amphetamine (NEGATIVE) U Benzodiazepine Level (NEGATIVE) Urine Cocaine (NEGATIVE) Urine Marijuana (THC) (NEGATIVE) Ethyl Alcohol (0-10) mg/dL Influenza Type A Ag (NEGATIVE) Influenza Type B Ag (NEGATIVE) RSV (PCR) (Negative) SARS-CoV-2 (PCR) (NEGATIVE) 05/29/22 05/29/22 Range/Units 07:29 11:31 WBC (4.0-10.5) x10^3/uL RBC (4.1-5.6) x10^6/uL Hgb (12.5-18.0) g/dL Hct (42-50) % MCV (78-100) fL MCH (26-32) pg MCHC (32-36) g/dL RDW (11.5-14.0) % Plt Count (150-450) x10^3/uL MPV (7.5-11.0) fL Gran % (36.0-66.0) % Immature Gran % (Auto) (0.00-0.4) % Nucleat RBC Rel Count (0.00-0.1) % Eos # (Auto) (0-0.5) x10^3/uL Immature Gran # (Auto) (0.00-0.03) x10^3u/L Absolute Lymphs (auto) (1.0-4.6) x10^3/uL Absolute Monos (auto) (0.0-1.3) x10^3/uL Absolute Nucleated RBC (0.00-0.01) x10^3u/L Lymphocytes % (24.0-44.0) % Monocytes % (0.0-12.0) % Eosinophils % (0.00-5.0) % Basophils % (0.0-0.4) % Absolute Granulocytes (1.4-6.9) x10^3/uL Basophils # (0-0.4) x10^3/uL PT (9.4-12.5) SECONDS INR (0.8-3.0) Sodium (137-145) mmol/L Potassium (3.5-5.1) mmol/L Chloride (98-107) mmol/L Carbon Dioxide (22-30) mmol/L Anion Gap (5-15) MEQ/L BUN (9-20) mg/dL Creatinine (0.66-1.25) mg/dL Estimated GFR ML/MIN Glucose (74-106) mg/dL POC Glucometer 146 H 133 H (74 to 106) mg/dL Lactic Acid (0.4-2.0) Calcium (8.4-10.2) mg/dL Total Bilirubin (0.2-1.3) mg/dL AST (17-59) U/L ALT (0-50) U/L Alkaline Phosphatase (38-126) U/L Troponin I (0.000-0.034) ng/mL Serum Total Protein (6.3-8.2) g/dL Albumin (3.5-5.0) g/dL Amylase (30-110) U/L Lipase (23-300) U/L Urinalys Dipstick Clnc Urine Color (YELLOW) Urine Appearance (CLEAR) Urine pH (5-6) Ur Specific [place] (1.005-1.025) POC Urine Protein Conf (Negative) Urine Ketones (NEGATIVE) Urine Nitrite (NEGATIVE) Urine Bilirubin (NEGATIVE) Urine Urobilinogen (0-1) mg/dL Urine Leukocytes (NEGATIVE) Urine WBC (Auto) (0-5) /HPF Urine RBC (Auto) (0-2) /HPF U Epithel Cells (Auto) (FEW) /HPF Urine Bacteria (Auto) (NEGATIVE) /HPF Urine RBC (0-5) Alvin/ul Urine Mucus (Auto) (NEGATIVE) /HPF Ur Culture Indicated? Urine Glucose (NEGATIVE) mg/dL Salicylates (2-20) mg/dL Urine Opiates Level (NEGATIVE) Ur Methadone (NEGATIVE) Acetaminophen (10-30) ug/ml Urine Barbiturates (NEGATIVE) Ur Phencyclidine (PCP) (NEGATIVE) Urine Amphetamine (NEGATIVE) U Benzodiazepine Level (NEGATIVE) Urine Cocaine (NEGATIVE) Urine Marijuana (THC) (NEGATIVE) Ethyl Alcohol (0-10) mg/dL Influenza Type A Ag (NEGATIVE) Influenza Type B Ag (NEGATIVE) RSV (PCR) (Negative) SARS-CoV-2 (PCR) (NEGATIVE) Accuchecks Date 05/28/22 Time 23:24 - Radiology Impressions Radiology Exams & Impressions: Radiology Procedures Category Date Time Status ABDOMEN AND PELVIS W/0 CONTRAS [CT] Stat Exams 05/28/22 16:05 Completed CHEST 1 VIEW (PORTABLE) Stat Exams 05/28/22 16:04 Completed HEAD WITHOUT CONTRAST [CT] Stat Exams 05/28/22 16:[address]/HEAD WITHOUT CONTRAST Indication: Confusion and weakness. Multiple contiguous axial images obtained through the head without contrast. Comparison: None Study is degraded by right orbital metallic beam artifact and mild motion artifact. Age-appropriate global atrophy and mild periventricular degenerative micro-ischemia bilaterally. No acute intracranial hemorrhage, abnormal extra-axial fluid collection, or mass effect. Fourth ventricle is midline without hydrocephalus. Bony calvarium grossly intact. Visualized paranasal sinuses and mastoid air cells are clear. Impression: Right orbital metallic beam artifact and motion artifact. CT/ABDOMEN AND PELVIS W/0 CONTRAS Indication: Abdomen discomfort. Confusion. Multiple contiguous axial images obtained through the abdomen and pelvis without contrast. Comparison: April 20, 2022 Lung bases again demonstrates minimal dependent atelectasis. No infiltrate or effusion. Heart not enlarged. Abdomen/pelvis slightly degraded by mild respiration artifact and beam artifact from patient's arms. Noncontrasted stomach and bowel loops appear nonobstructed again with normal appendix and minimal sigmoid diverticulosis. There remains tiny hepatic/splenic calcified granulomas. No free fluid/air. Remaining liver, gallbladder, pancreas, spleen, adrenal glands, kidneys, ureters, and bladder are unremarkable for noncontrast exam. Again moderate aortoiliac calcifications and ectatic common iliac arteries. Osseous structures intact again with osteopenia, mild degenerative changes throughout the spine, and moderate degenerative changes both hips. Impression: No change compared to CT one month ago again demonstrating sigmoid diverticulosis, arteriosclerotic disease, chronic bony findings, and old granulomatous disease. No new/acute findings on this noncontrast exam. Assessment/Plan (1) Altered mental status Current Visit: Yes Status: Acute Qualifiers: Altered mental status type: disorientation Qualified Code(s): R41.0 - Disorientation, unspecified Code(s): R41.82 - ALTERED MENTAL STATUS, UNSPECIFIED (2) General weakness Current Visit: Yes Status: Acute Code(s): R53.1 - WEAKNESS (3) Peripheral vascular disease of extremity Current Visit: Yes Status: Chronic Code(s): I73.9 - PERIPHERAL VASCULAR DISEASE, UNSPECIFIED (4) COPD (chronic obstructive pulmonary disease) Current Visit: Yes Status: Chronic Qualifiers: COPD type: unspecified COPD Qualified Code(s): J44.9 - Chronic obstructive pulmonary disease, unspecified (5) Diabetes mellitus type 2 Current Visit: Yes Status: Chronic Code(s): E11.9 - TYPE 2 DIABETES MELLITUS WITHOUT COMPLICATIONS (6) Peripheral vascular disease in diabetes mellitus Current Visit: Yes Status: Chronic Code(s): E11.51 - TYPE 2 DIABETES W DIABETIC PERIPHERAL ANGIOPATH W/O GANGRENE
[2022-05-29] MEDS: TYLENOL 325 MG PO PRN (12:16)
[2022-05-29] MEDS ORDERED: NON-FORMULARY ITEM (Insulin Lispro [Humalog Kwikpen U-100] 100 UNIT/ML Insuln.Pen) SQ SCH (12:30)
[2022-05-29] MEDS ORDERED: MEDICATION INTERVENTION MC SCH (12:45)
[2022-05-29] MEDS: LASIX 20 MG PO SCH ×2 (13:48→17:11)
[2022-05-29] MEDS: Klor Con PO SCH ×2 (13:48→21:47)
[2022-05-29] MEDS: Protonix 40MG Tablet PO SCH (13:53)
[2022-05-29] MEDS: Coreg 3.125 MG PO SCH ×2 (13:53→21:47)
[2022-05-29] MEDS: DELTASONE 5 MG PO SCH (13:53)
[2022-05-29] MEDS: Vitamin C 500 MG PO SCH (13:53)
[2022-05-29] MEDS: Cymbalta 30 MG Capsule PO SCH ×2 (13:53→21:47)
[2022-05-29] MEDS: Flomax 0.4 MG PO SCH (13:53)
[2022-05-29] MEDS: ZOCOR 20MG PO SCH (13:53)
[2022-05-29] MEDS: NEURONTIN PO SCH ×3 (13:53→21:47)
[2022-05-29] MEDS: Lantus Insulin SQ SCH (13:54)
[2022-05-29] MEDS: Proscar 5 MG PO SCH (13:54)
[2022-05-29] MEDS ORDERED: NON-FORMULARY ITEM (Duloxetine Hcl [Cymbalta] 60 MG Capsule.Dr) PO SCH (22:00)
[2022-05-29] MEDS ORDERED: POTASSIUM CHLORIDE 8 MEQ PO SCH (22:00)
[2022-05-29] MEDS ORDERED: NIACIN 500 MG PO SCH (22:00)
[2022-05-30 05:16] LABS: Basophil (Absolute #) 0.03 x10^3/uL (0-0.4); Eosinophil % 0.2 % (0.00-5.0); Eosinophil (Absolute #) 0.02 x10^3/uL (0-0.5); Hematocrit 46.4 % (42-50); Hemoglobin 15.4 g/dL (12.5-18.0); Lymphocyte (Absolute #) 1.19 x10^3/uL (1.0-4.6); Lymphocytes % 13.6 % (24.0-44.0); Mean Corpuscular Hemoglobin 34.5 pg (26-32); Mean Corpuscular Hgb Concent. 33.2 g/dL (32-36); Mean Platelet Volume 10.2 fL (7.5-11.0); Monocyte (Absolute #) 0.87 x10^3/uL (0.0-1.3); Monocytes % 9.9 % (0.0-12.0); Neutrophil % 75.5 % (36.0-66.0); Platelet Count 147 x10^3/uL (150-450); Red Blood Count 4.46 x10^6/uL (4.1-5.6); Red Cell Distribution Width 13.4 % (11.5-14.0); White Blood Count 8.8 x10^3/uL (4.0-10.5)
[2022-05-30 05:49] LABS: ALBUMIN 3.7 g/dL (3.5-5.0); ALKALINE PHOSPHATASE 65 U/L (38-126); ANION GAP 9.6 MEQ/L (5-15); BLOOD UREA NITROGEN 19 mg/dL (9-20); CHLORIDE 109 mmol/L (98-107); Calcium 8.6 mg/dL (8.4-10.2); Carbon Dioxide 21 mmol/L (22-30); Creatinine 1 0.68 mg/dL (0.66-1.25); EST GLOMERULAR FILTRATION RATE > 60.0 ML/MIN; Glucose 187 mg/dL (74-106); Potassium 4.2 mmol/L (3.5-5.1); SGOT/AST 23 U/L (17-59); SGPT/ALT 19 U/L (0-50); SODIUM 135 mmol/L (137-145); Total Protein 6.5 g/dL (6.3-8.2)
[2022-05-30] MEDS: Sodium Chloride 0.9% 1000 ML 1,000 ML IV SCH ×2 (06:02→12:40)
[2022-05-30] MEDS: TYLENOL 325 MG PO PRN (07:43)
[2022-05-30] MEDS: ZOCOR 20MG PO SCH (09:45)
[2022-05-30] MEDS: Lantus Insulin SQ SCH (09:45)
[2022-05-30] MEDS: Klor Con PO SCH (09:46)
[2022-05-30] MEDS: NEURONTIN PO SCH ×2 (09:46→12:32)
[2022-05-30] MEDS: Coreg 3.125 MG PO SCH (09:46)
[2022-05-30] MEDS: Vitamin C 500 MG PO SCH (09:46)
[2022-05-30] MEDS: Cymbalta 30 MG Capsule PO SCH (09:47)
[2022-05-30] MEDS: Flomax 0.4 MG PO SCH (09:47)
[2022-05-30] MEDS: Proscar 5 MG PO SCH (09:47)
[2022-05-30] MEDS: Protonix 40MG Tablet PO SCH (09:47)
[2022-05-30] MEDS: DELTASONE 5 MG PO SCH (09:47)
[2022-05-30] MEDS: LASIX 20 MG PO SCH (09:47)
[2022-05-30] MEDS ORDERED: NON-FORMULARY ITEM (Rosuvastatin Calcium [Rosuvastatin Calcium] 10 MG Tablet) PO SCH (10:00)
[2022-05-30] MEDS ORDERED: TORAdol 30 mg Injection IV ONE (10:41)
[2022-05-30] MEDS ORDERED: HUMALOG SQ PRN (10:44)
[2022-05-30 11:25] VITALS: BP 115/64; PULSE 72; O2SAT 96
[2022-05-30] MEDS ORDERED: TORAdol 30 mg Injection IV PRN (12:05)
--- NOTE | 2022-05-30 20:18 | PCM.DS ---
Discharge Summary Date of Admission: 05/28/22 22:44 Admitting Physician: ОЛЬГА COOPER Consults: Consults on Case 05/29/22 11:54 Consult Neurology ROUTINE Primary Care Provider: ОЛЬГА COOPER Allergies Allergies diazepam [From Valium] Adverse Reaction (Intermediate, Verified 05/28/22 18:58) Hallucinations Hospital Summary - Hospital Course Hospital Course: Chief Complaint Diagnosis weakness and confusion for 3-4 days Allergies Allergy/AdvReac Type Severity Reaction Status Date / Time diazepam [From Valium] AdvReac Intermediate Hallucinati Verified 05/28/22 18:58 ons Vital Signs (Last 24 hours) Temp Pulse Resp BP BP Pulse Ox 05/30/22 11:24 96.9 F 72 16 115/64 96 05/30/22 10:17 68 17 130/96 05/30/22 07:34 97.3 F 68 17 130/96 98 05/30/22 04:00 97.3 F 62 17 184/77 96 05/29/22 23:57 97.7 F 59 L 20 155/73 98 Home Medications Medication Instructions Recorded Confirmed Last Taken Type Duloxetine HCl [Cymbalta] 60 mg PO BID 05/28/22 05/28/22 Unknown History Insulin Glargine,Hum.rec.anlog 100 unit SQ HS 30 Days 05/30/22 Unknown Rx [Lantus] Current Medications Discontinued Medications Generic Name Dose Route Start Last Admin Trade Name Freq PRN Reason Stop Dose Admin Acetaminophen 650 mg 05/29/22 11:37 05/30/22 07:43 Acetaminophen 325 Mg Tablet PO 06/28/22 11:36 650 mg Q4H PRN PRN Administration PAIN AND/OR FEVER Ascorbic Acid 1,000 mg 05/29/22 13:00 05/30/22 09:46 Ascorbic Acid 500 Mg Tablet PO 06/28/22 12:59 1,000 mg DAILY ETHAN Administration Carvedilol 3.125 mg 05/29/22 13:00 05/30/22 09:46 Carvedilol 3.125 Mg Tablet PO 06/28/22 12:59 3.125 mg BID ETHAN Administration Duloxetine HCl 60 mg 05/29/22 13:00 05/30/22 09:47 Duloxetine Hcl 30 Mg Cap PO 06/28/22 12:59 60 mg BID ETHAN Administration Finasteride 5 mg 05/29/22 13:00 05/30/22 09:47 Finasteride 5 Mg Tablet PO 06/28/22 12:59 5 mg DAILY ETHAN Administration Furosemide 20 mg 05/29/22 13:00 05/30/22 09:47 Furosemide 20 Mg Tablet PO 06/28/22 12:59 20 mg BID DIURETIC ETHAN Administration Gabapentin 600 mg 05/29/22 13:00 05/30/22 12:32 Gabapentin 300 Mg Capsule PO 06/28/22 12:59 Not Given QID ETHAN Sodium Chloride 1,000 mls @ 999 mls/hr 05/28/22 16:03 05/28/22 18:16 Sodium Chloride 0.9% 1000 Ml IV 05/28/22 17:03 Infused .Q1H1M STA Infusion Sodium Chloride Confirm 05/28/22 16:37 Sodium Chloride 0.9% 1000 Ml Administered 05/28/22 16:38 Dose 1,000 mls @ ud .ROUTE .STK-MED ONE Sodium Chloride 1,000 mls @ 150 mls/hr 05/28/22 22:52 05/30/22 12:40 Sodium Chloride 0.9% 1000 Ml IV 06/27/22 22:51 150 mls/hr .Q6H40M ETHAN Administration Insulin Glargine 40 unit 05/29/22 13:00 05/30/22 09:45 Insulin Glargine 1 Unit SQ 06/28/22 12:59 40 unit DAILY ETHAN Administration Insulin Human Lispro 0 unit 05/30/22 10:44 Insulin Lispro 1 Unit SQ 06/29/22 10:43 UD PRN HYPERGLYCEMIA Ketorolac Tromethamine 30 mg 05/30/22 10:41 05/30/22 10:58 Ketorolac Tromethamine 30 Mg/Ml Inj IV 05/30/22 10:42 30 mg ONCE ONE Administration Ketorolac Tromethamine 30 mg 05/30/22 12:05 05/30/22 15:50 Ketorolac Tromethamine 30 Mg/Ml Inj IV 06/04/22 12:04 30 mg Q6H PRN PRN Administration PAIN Lorazepam 0 mg 05/29/22 06:42 05/30/22 10:17 Lorazepam 2 Mg/1 Ml 2 Mg Vial IV 06/28/22 06:41 2 mg Q2H PRN PRN Administration CIWA SCORE Protocol Miscellaneous Information 1 each 05/29/22 12:45 Medication Intervention 1 Each Each 06/28/22 12:44 .RN TO CHECK ETHAN Pantoprazole Sodium 40 mg 05/29/22 13:00 05/30/22 09:47 Protonix (Pantoprazole) 40 Mg Tablet PO 06/28/22 12:59 40 mg QAM ETHAN Administration Potassium Chloride 10 meq 05/29/22 13:00 05/30/22 09:46 Potassium Chloride Tab 10 Meq Tab PO 06/28/22 12:59 10 meq BID ETHAN Administration Prednisone 5 mg 05/29/22 13:00 05/30/22 09:47 Prednisone 5 Mg Tablet PO 06/28/22 12:59 5 mg DAILY ETHAN Administration Simvastatin 20 mg 05/29/22 13:00 05/30/22 09:45 Simvastatin 20 Mg Tablet PO 06/28/22 12:59 20 mg DAILY ETHAN Administration Tamsulosin HCl 0.4 mg 05/29/22 13:00 05/30/22 09:47 Tamsulosin Hcl 0.4 Mg Cap PO 06/28/22 12:59 0.4 mg DAILY ETHAN Administration Thiamine HCl 100 mg 05/28/22 16:08 05/28/22 16:38 Thiamine Hcl 200 Mg/2 Ml Vial IV 05/28/22 16:09 100 mg STAT ONE Administration Thiamine HCl Confirm 05/28/22 16:37 Thiamine Hcl 200 Mg/2 Ml Vial Administered 05/28/22 16:38 Dose 200 mg .ROUTE .STK-MED ONE Intake & Output (Last 24 hours) 05/28/22 05/29/22 05/30/22 05/31/22 11:59 11:59 11:59 11:59 Intake Total 690 3879 Output Total 1000 1230 Balance -310 2649 Weight 84.3 kg Microbiology Results (Last 24 hours) 05/28/22 16:45 Blood Blood Culture Gram Stain - Final 05/28/22 16:45 Blood Blood Culture - Preliminary Coagulase Negative Staph. Possible Contaminant. Clinical judgement required. NO FURTHER WORKUP WILL BE PERFORMED UNLESS PHYSICIAN REQUESTED WITHIN THE NEXT 72 HOURS 05/28/22 16:40 Blood Blood Culture Gram Stain - Pending 05/28/22 16:40 Blood Blood Culture - Preliminary NO GROWTH TO DATE Laboratory Results (Last 24 hours) 05/30/22 05/30/22 05/30/22 11:10 07:23 04:30 WBC 8.8 RBC 4.46 Hgb 15.4 Hct 46.4 MCV 104.0 H MCH 34.5 H MCHC 33.2 RDW 13.4 Plt Count 147 L MPV 10.2 Gran % 75.5 H Immature Gran % (Auto) 0.5 H Nucleat RBC Rel Count 0.0 Eos # (Auto) 0.02 Immature Gran # (Auto) 0.04 H Absolute Lymphs (auto) 1.19 Absolute Monos (auto) 0.87 Absolute Nucleated RBC 0.00 Lymphocytes % 13.6 L Monocytes % 9.9 Eosinophils % 0.2 Basophils % 0.3 Absolute Granulocytes 6.60 Basophils # 0.03 Sodium Potassium Chloride Carbon Dioxide Anion Gap BUN Creatinine Estimated GFR Glucose POC Glucometer 200 H 161 H Calcium Total Bilirubin AST ALT Alkaline Phosphatase Serum Total Protein Albumin 05/30/22 05/29/22 04:00 20:36 WBC RBC Hgb Hct MCV MCH MCHC RDW Plt Count MPV Gran % Immature Gran % (Auto) Nucleat RBC Rel Count Eos # (Auto) Immature Gran # (Auto) Absolute Lymphs (auto) Absolute Monos (auto) Absolute Nucleated RBC Lymphocytes % Monocytes % Eosinophils % Basophils % Absolute Granulocytes Basophils # Sodium 135 L Potassium 4.2 Chloride 109 H Carbon Dioxide 21 L Anion Gap 9.6 BUN 19 Creatinine 0.68 Estimated GFR > 60.0 Glucose 187 H POC Glucometer 232 H Calcium 8.6 Total Bilirubin 0.90 AST 23 ALT 19 Alkaline Phosphatase 65 Serum Total Protein 6.5 Albumin 3.7 Orders (Last 24 hours) Category Date Time Status Discharge Planning,Consult Routine Discharge 05/30/22 Active Discharge Routine Discharge 05/30/22 Ordered CBC W DIFF AM.LAB Lab 05/30/22 04:30 Completed CMP AM.LAB Lab 05/30/22 04:00 Completed POCT GLUCOSE Stat Lab 05/29/22 20:36 Completed POCT GLUCOSE Stat Lab 05/30/22 07:23 Completed POCT GLUCOSE Stat Lab 05/30/22 11:10 Completed Insulin Lispro [Humalog] Med 05/30/22 10:44 Discontinued See Dose Instructions SQ UD PRN KETOROLAC trometh 30 mg Inj [TORAdol 30 mg Injection Med 05/30/22 10:41 Discontinued ] 30 mg IV ONCE ONE KETOROLAC trometh 30 mg Inj [TORAdol 30 mg Injection Med 05/30/22 12:05 Discontinued ] 30 mg IV Q6H PRN PRN Patient Care Notes (Last 24 hours) 05/30/22 16:54 Nursing Note by Radha Min [facility] arrived to transport patient home. All belongings sent with family. Initialized on 05/30/22 16:54 - END OF NOTE 05/30/22 15:39 Nursing Note by Radha Min Spoke with Dr. Cooper, order given to DC home with hospice. Ambulance transfer set up with [facility] for 1630. [facility] notified that patient will be home around 1700. Discharge instructions discussed with family. Initialized on 05/30/22 15:39 - END OF NOTE 05/30/22 13:20 Case Management Note by Harmony Goff S/W [facility]- THEY RECEIVED REFERRAL AND WILL CONTACT THE FAMILY TO MAKE ARRANGEME NTS Initialized on 05/30/22 13:20 - END OF NOTE 05/30/22 12:32 Case Management Note by Harmony Goff FAMILY FRIEND IN ROOM- REPORTS [employer] IS AT WORK AND THAT HIS JENNIFER WILL BE IN CHARGE OF MAKING PLANS FOR PATIENT AT DC. CALLED [employer]- HE AGREED WITH THIS- TO TALK WITH HIS FOR DC PLANS. JENNIFER AND FAMILY FRIEND ELVIN HERE AND HAVE S/W DR. COOPER- HE SUGGESTED PA TIENT TO DC HOME WITH HOSPICE. FAMILY WOULD LIKE PATIENT TO DC HOME WITH [facility]. JENNIFER REPORTS BETWEEN HER AND ELVIN THEY WILL PROVIDE PATIENT WITH 24 [address] CARE AT HOME. REFERRAL FAXED TO [facility] AT THIS TIME. PATIENT WILL DC HOME TO HIS OWN HOME. FAMILY ANTICIPATES THIS TO BE TOMORROW BEFORE THEY ARE READY FOR HIM. Initialized on 05/30/22 12:32 - END OF NOTE 05/30/22 11:22 Case Management Note by Harmony Goff PATIENT STILL CONFUSED- WAITING ON TELE NEURO TO HAVE MORE INFORMATION TO DEVELOP A DC PLAN FOR PATIENT. PRIOR TO ADMISSION HE WAS INDEPENDENT WITH NO NEEDS Initialized on 05/30/22 11:22 - END OF NOTE 05/30/22 11:08 Nursing Note by Jess Cowan I called [facility] [phone] and spoke with De. They will be ready to do consult shortly. Initialized on 05/30/22 11:08 - END OF NOTE - Vitals & Intake/Output Vital Signs: Vital Signs Temperature 96.9 F 05/30/22 11:24 Pulse Rate 72 05/30/22 11:24 Respiratory Rate 16 05/30/22 11:24 Blood Pressure 115/64 05/30/22 11:24 O2 Sat by Pulse Oximetry 96 05/30/22 11:24 Intake & Output: Intake & Output 05/28/22 05/29/22 05/30/22 05/31/22 11:59 11:59 11:59 11:59 Intake Total 690 3879 Output Total 1000 1230 Balance -310 2649 Weight 84.3 kg - Lab Result Diagrams: 05/30/22 04:30 05/30/22 04:00 Lab Results-Last 24 Hrs: Lab Results-Last 24 Hours 05/29/22 05/30/22 05/30/22 Range/Units 20:36 04:00 04:30 WBC 8.8 (4.0-10.5) x10^3/uL RBC 4.46 (4.1-5.6) x10^6/uL Hgb 15.4 (12.5-18.0) g/dL Hct 46.4 (42-50) % MCV 104.0 H (78-100) fL MCH 34.5 H (26-32) pg MCHC 33.2 (32-36) g/dL RDW 13.4 (11.5-14.0) % Plt Count 147 L (150-450) x10^3/uL MPV 10.2 (7.5-11.0) fL Gran % 75.5 H (36.0-66.0) % Immature Gran % (Auto) 0.5 H (0.00-0.4) % Nucleat RBC Rel Count 0.0 (0.00-0.1) % Eos # (Auto) 0.02 (0-0.5) x10^3/uL Immature Gran # (Auto) 0.04 H (0.00-0.03) x10^3u/L Absolute Lymphs (auto) 1.19 (1.0-4.6) x10^3/uL Absolute Monos (auto) 0.87 (0.0-1.3) x10^3/uL Absolute Nucleated RBC 0.00 (0.00-0.01) x10^3u/L Lymphocytes % 13.6 L (24.0-44.0) % Monocytes % 9.9 (0.0-12.0) % Eosinophils % 0.2 (0.00-5.0) % Basophils % 0.3 (0.0-0.4) % Absolute Granulocytes 6.60 (1.4-6.9) x10^3/uL Basophils # 0.03 (0-0.4) x10^3/uL Sodium 135 L (137-145) mmol/L Potassium 4.2 (3.5-5.1) mmol/L Chloride 109 H (98-107) mmol/L Carbon Dioxide 21 L (22-30) mmol/L Anion Gap 9.6 (5-15) MEQ/L BUN 19 (9-20) mg/dL Creatinine 0.68 (0.66-1.25) mg/dL Estimated GFR > 60.0 ML/MIN Glucose 187 H (74-106) mg/dL POC Glucometer 232 H (74 to 106) mg/dL Calcium 8.6 (8.4-10.2) mg/dL Total Bilirubin 0.90 (0.2-1.3) mg/dL AST 23 (17-59) U/L ALT 19 (0-50) U/L Alkaline Phosphatase 65 (38-126) U/L Serum Total Protein 6.5 (6.3-8.2) g/dL Albumin 3.7 (3.5-5.0) g/dL 05/30/22 05/30/22 Range/Units 07:23 11:10 WBC (4.0-10.5) x10^3/uL RBC (4.1-5.6) x10^6/uL Hgb (12.5-18.0) g/dL Hct (42-50) % MCV (78-100) fL MCH (26-32) pg MCHC (32-36) g/dL RDW (11.5-14.0) % Plt Count (150-450) x10^3/uL MPV (7.5-11.0) fL Gran % (36.0-66.0) % Immature Gran % (Auto) (0.00-0.4) % Nucleat RBC Rel Count (0.00-0.1) % Eos # (Auto) (0-0.5) x10^3/uL Immature Gran # (Auto) (0.00-0.03) x10^3u/L Absolute Lymphs (auto) (1.0-4.6) x10^3/uL Absolute Monos (auto) (0.0-1.3) x10^3/uL Absolute Nucleated RBC (0.00-0.01) x10^3u/L Lymphocytes % (24.0-44.0) % Monocytes % (0.0-12.0) % Eosinophils % (0.00-5.0) % Basophils % (0.0-0.4) % Absolute Granulocytes (1.4-6.9) x10^3/uL Basophils # (0-0.4) x10^3/uL Sodium (137-145) mmol/L Potassium (3.5-5.1) mmol/L Chloride (98-107) mmol/L Carbon Dioxide (22-30) mmol/L Anion Gap (5-15) MEQ/L BUN (9-20) mg/dL Creatinine (0.66-1.25) mg/dL Estimated GFR ML/MIN Glucose (74-106) mg/dL POC Glucometer 161 H 200 H (74 to 106) mg/dL Calcium (8.4-10.2) mg/dL Total Bilirubin (0.2-1.3) mg/dL AST (17-59) U/L ALT (0-50) U/L Alkaline Phosphatase (38-126) U/L Serum Total Protein (6.3-8.2) g/dL Albumin (3.5-5.0) g/dL Micro Results-Entire Visit: Microbiology 05/28/22 16:45 Blood Culture Gram Stain - Final Blood Blood Culture - Preliminary Coagulase Negative Staph. Possible Contaminant. Clinical judgement required. NO FURTHER WORKUP WILL BE PERFORMED UNLESS PHYSICIAN REQUESTED WITHIN THE NEXT 72 HOURS 05/28/22 16:40 Blood Culture - Preliminary Blood NO GROWTH TO DATE Accuchecks Date 05/30/22 Date 05/30/22 Date 05/29/22 Time 11:24 Time 07:34 Time 20:45 - Procedures and Test Procedures and Tests throughout Hospitalization: Therapy Orders & Screens 05/28/22 23:16 OT Screen per Nursing Assess ONCE Comment: Protocol Order Physician Instructions: Greater than 3 points order OT Admission Screening Reason For Exam: Triggered on Admission Diagnosis: AMS Open Wound/Cellutlitis/Pressure Ulcers: No Acute Fx/ORIF/Change in wt bearing status: No Severe MUSCULOSKELETAL pain: No ADL Dysfunction: Yes Acute CVA w/Hemiparesis/Hemiplegia: No Decreased Functional Mobility/Strength: Yes Sprain/Strain: No Acute Post-op Mobility Dysfunction: No Total Points: 4 PT Screen per Nursing Assess ONCE Comment: Protocol Order Physician Instructions: Greater than 3 points order PT Admission Screenin Reason For Exam: Triggered on Admission Diagnosis: AMS Open Wound/Cellutlitis/Pressure Ulcers: No Acute Fx/ORIF/Change in wt bearing status: No Severe MUSCULOSKELETAL pain: No ADL Dysfunction: Yes Acute CVA w/Hemiparesis/Hemiplegia: No Decreased Functional Mobility/Strength: Yes Sprain/Strain: No Acute Post-op Mobility Dysfunction: No Total Points: 4 Discharge Exam General Appearance: no apparent distress, mild distress, alert Neurologic Exam: alert, slurred speech, No motor deficits Eye Exam: PERRL, EOMI, eyes nml inspection Ears, Nose, Throat Exam: normal ENT inspection, pharynx normal, moist mucous membranes Neck Exam: normal inspection, non-tender, supple, full range of motion Respiratory Exam: diminished breath sounds, No respiratory distress Cardiovascular Exam: regular rate/rhythm, normal heart sounds Gastrointestinal/Abdomen Exam: soft, No tenderness, No mass Male Genitalia Exam: deferred Rectal Exam: deferred Back Exam: normal inspection, normal range of motion, No CVA tenderness, No vertebral tenderness Extremity Exam: normal inspection, normal range of motion Skin Exam: normal color, warm, dry Final Diagnosis/Problem List - Final Discharge Diagnosis/Problem (1) Altered mental status Status: Acute Code(s): R41.82 - ALTERED MENTAL STATUS, UNSPECIFIED (2) General weakness Status: Acute Code(s): R53.1 - WEAKNESS (3) Peripheral vascular disease of extremity Status: Chronic Code(s): I73.9 - PERIPHERAL VASCULAR DISEASE, UNSPECIFIED (4) COPD (chronic obstructive pulmonary disease) Status: Chronic (5) Diabetes mellitus type 2 Status: Chronic Code(s): E11.9 - TYPE 2 DIABETES MELLITUS WITHOUT C OMPLICATIONS (6) Peripheral vascular disease in diabetes mellitus Status: Chronic Priority: High Code(s): E11.51 - TYPE 2 DIABETES W DIABETIC PERIPHERAL ANGIOPATH W/O GANGRENE - Discharge Discharge Date: 05/30/22 Disposition: Hospice @ [facility] Condition: Stable Prescriptions: New Insulin Glargine,Hum.rec.anlog [Lantus] 100 unit SQ HS 30 Days Continue Tamsulosin HCl 0.4 mg [Flomax 0.4 MG] 0.4 mg PO DAILY Carvedilol 3.125 mg [Coreg 3.125 MG] 3.125 mg PO BID Prednisone 5 mg [Deltasone 5 mg] 5 mg PO DAILY PANTOPRAZOLE 40 mg Tablet [Protonix 40MG Tablet] 40 mg PO QAM Gabapentin [Neurontin ] 600 mg PO QID Finasteride 5 mg [Proscar 5 MG] 5 mg PO DAILY Duloxetine HCl [Cymbalta] 60 mg PO BID Discontinued Niacin 500 mg [Niaspan 500 mg] 500 mg PO HS Aspirin EC 81 mg [Ecotrin 81 mg] 81 mg PO DAILY Furosemide 20 mg [Lasix 20 mg] 20 mg PO BID Potassium Chloride 8 meq PO BID Insulin Lispro [Humalog Kwikpen U-100] 1 unit SQ UD Insulin Glargine,Hum.rec.anlog [Lantus] 40 unit SQ DAILY Rosuvastatin Calcium 10 mg PO DAILY Ascorbic Acid 500 mg [Vitamin C 500 MG] 1,000 mg PO DAILY Hydrocodone/Ibuprofen [Hydrocodone-Ibuprofen 7.5-200] 1 tab PO Q6H Diclofenac Sodium 50 mg [Voltaren 50 mg] 50 mg PO BID Instructions: Peripheral Vascular (Arterial) Disease (DC), Palliative Care Additional Instructions: [facility] TO ADMIT Follow up with: ОЛЬГА COOPER MD [Primary Care Provider] - Forms: Discharge Instructions
== END 2022-05-30 16:45 | disposition hospice, home (50) ==
LOC: ED 15:53 → MED SURG 22:44
PROVIDERS: ADMIT General Practice; ATTEND General Practice
DX: R41.82 Altered mental status, unspecified (principal); R53.1 Weakness; I73.9 Peripheral vascular disease, unspecified; J44.9 Chronic obstructive pulmonary disease, unspecified; E11.51 Type 2 diabetes mellitus with diabetic peripheral angiopathy without gangrene; I25.2 Old myocardial infarction; Z72.0 Tobacco use; Z79.899 Other long term (current) drug therapy; Z20.828 Contact with and (suspected) exposure to other viral communicable diseases
CPT/HCPCS: 0241U; 36000; 36415; 70450; 71045; 74176; 80053; 80307; 81015; 82150; 82947; 83036; 83605; 83690; 84484; 85025; 85610; 87040; 93005; 96360; 96374; 99284; G0480; G0378; J1885; J2060; A9270-GY